=== PATIENT | female | born 1995 | race Caucasian/White ===

== ENCOUNTER 2018-06-26 12:31 | Emergency (ER) | payer OTHER, SELFPAY ==
--- NOTE | 2018-06-26 12:33 | W.ED.GENAD ---
Discharge Plan Disposition Patient Disposition: HOME Condition: Stable Discharge Details Chief Complaint: Laceration Clinical Impression: Laceration of right index finger ED Provider: Daniel Fry Discharge Instructions Instructions: Finger Laceration (ED) Additional Instructions: return in 7 days to have the wound reevaluated and determine if the sutures can come out if redness spreads up the finger or you have yellow/white discharge from the wound return to the emergency department for reevaluation Medical Decision Making Pt was at work when she slipped using a slicer causing a lateral 3cm incision to the distal finger. Has full rom of the finger with intact sensation. No findings to suggest tendon or nerve injury. Will irrigate and close with sutures. Denies hitting her head or other injuries wound closed with 4 sutures and skin adhesive. Will d/c home, return precautions to come before suture removal given Differential Diagnosis laceration, abrasion HPI General Mode of arrival: ambulatory. Date/Time Provider Initiated Documentation: 06/26/18 12:33. Limitations to Documentation: no limitations. Information obtained by: patient. History of Present Illness 22 year old F presents to the emergency department with the chief complaint of right index finger laceration, described as moderate, Quality is described as aching, and is localized to the right and upper extremity. Patient reports no radiation. and it has been constant. No relieving factors improve symptom(s), No exacerbating factors reported . Patient notes no other symptoms.. Patient did receive the following treatments prior to arrival, none Related Data Allergies Allergy/AdvReac Type Severity Reaction Status Date / Time No Known Allergies Allergy Unverified 06/26/18 12:39 Review of Systems Review of Systems All systems reviewed & are unremarkable except as noted in HPI and below Constitutional Denies weakness Cardiovascular Denies chest pain and Denies dyspnea Respiratory Denies dyspnea Gastrointestinal Denies abdominal pain, Denies nausea and Denies vomiting Neurologic Denies weakness [facility] Social History Do you feel safe at home: Yes Do you feel safe in your relationship?: Yes Exam Const General: no acute distress Orientation: alert HENMT Head: normal to inspection Ears: external ears normal General nose exam: external nose normal Mouth: moist mucous membranes Eyes General: appearance normal, both eyes and all related structures Neck Neck: normal visual inspection Resp Effort & Inspection: normal respiratory effort and able to speak in complete sentences Cardio Rate: regular rate Skin General skin exam: no rashes or lesions noted Neuro General: alert and oriented x3 Extrem General: normal capillary refill Psych Mental Status: mental status grossly normal Procedures Laceration Laceration 1: Site: hand Side (If applicable): right Size (cm): 3 Description: linear Depth: simple, single layer Local Anesthetic: Lidocaine 1% Amount of anesthesia used (mL): 6 Pre-repair: wound explored and irrigated extensively Skin layer closed with: nylon and other (also skin adhesive) Size (cm): 5-0 Number of sutures: 4 Technique: simple, interrupted
[2018-06-26 12:35] VITALS: BP 146/91; PULSE 91; RESP 18; O2SAT 96
--- NOTE | 2018-06-26 12:44 | ED.GENADUL_ITS ---
Discharge Plan Disposition Patient Disposition: HOME Condition: Stable Discharge Details Chief Complaint: Laceration Clinical Impression: Laceration of right index finger ED Provider: Daniel Fry Discharge Instructions Instructions: Finger Laceration (ED) Additional Instructions: return in 7 days to have the wound reevaluated and determine if the sutures can come out if redness spreads up the finger or you have yellow/white discharge from the wound return to the emergency department for reevaluation Medical Decision Making Pt was at work when she slipped using a slicer causing a lateral 3cm incision to the distal finger. Has full rom of the finger with intact sensation. No findings to suggest tendon or nerve injury. Will irrigate and close with sutures. Denies hitting her head or other injuries wound closed with 4 sutures and skin adhesive. Will d/c home, return precautions to come before suture removal given Differential Diagnosis laceration, abrasion HPI General Mode of arrival: ambulatory . Date/Time Provider Initiated Documentation: 06/26/18 12:33 . Limitations to Documentation: no limitations . Information obtained by: patient . History of Present Illness 22 year old F presents to the emergency department with the chief complaint of right index finger laceration, described as moderate, Quality is described as aching, and is localized to the right and upper extremity. Patient reports no radiation. and it has been constant. No relieving factors improve symptom(s), No exacerbating factors reported . Patient notes no other sympto ms.. Patient did receive the following treatments prior to arrival, none Related Data Allergies Allergy/AdvReac Type Severity Reaction Status Date / Time No Known Allergies Allergy Unverified 06/26/18 12:39 Review of Systems Review of Systems All systems reviewed & are unremarkable except as noted in HPI and below Constitutional Denies weakness Cardiovascular Denies chest pain and Denies dyspnea Respiratory Denies dyspnea Gastrointestinal Denies abdominal pain, Denies nausea and Denies vomiting Neurologic Denies weakness [facility] Social History Do you feel safe at home: Yes Do you feel safe in your relationship?: Yes Exam Const General: no acute distress Orientation: alert HENMT Head: normal to inspection Ears: external ears normal General nose exam: external nose normal Mouth: moist mucous membranes Eyes General: appearance normal, both eyes and all related structures Neck Neck: normal visual inspection Resp Effort & Inspection: normal respiratory effort and able to speak in complete sentences Cardio Rate: regular rate Skin General skin exam: no rashes or lesions noted Neuro General: alert and oriented x3 Extrem General: normal capillary refill Psych Mental Status: mental status grossly normal Procedures Laceration Laceration 1: Site: hand Side (If applicable): right Size (cm): 3 Description: linear Depth: simple, single layer Local Anesthetic: Lidocaine 1% Amount of anesthesia used (mL): 6 Pre-repair: wound explored and irrigated extensively Skin layer closed with: nylon and other (also skin adhesive) Size (cm): 5-0 Number of sutures: 4 Technique: simple, interrupted
--- NOTE | 2018-06-26 13:17 | NUR.NOTE ---
approximated finger wound, area dressed with telfa under gauze dressing. Nursing Note:
== END 2018-06-26 13:15 | disposition home or self-care (01) ==
LOC: ER 13:27
PROVIDERS: Emergency Provider Emergency Medicine
DX: S61.210A Laceration without foreign body of right index finger without damage to nail, initial encounter (principal); W31.82XA Contact with other commercial machinery, initial encounter; Y99.0 Civilian activity done for income or pay
CPT/HCPCS: 12002

== ENCOUNTER 2018-07-03 15:55 | Emergency (ER) | payer SELFPAY ==
--- NOTE | 2018-07-03 16:06 | ED.GENADUL_ITS ---
Discharge Plan Discharge Details Primary Care Provider: Unknown,Unknown ED Provider: Charo Vasquez HPI General Date/Time Provider Initiated Documentation: 07/03/18 15:56 . Related Data Allergies Allergy/AdvReac Type Severity Reaction Status Date / Time No Known Allergies Allergy Unverified 06/26/18 12:39 General JU: 3 Review of Systems Review of Systems All systems reviewed & are unremarkable except as noted in HPI and below Constitutional Reports as per HPI, Denies chills and Denies fever(s) Eyes Denies blurry vision ENT Denies dizziness, Denies sore throat and Denies throat swelling Cardiovascular Denies chest pain and Denies dyspnea Respiratory Denies cough and Denies dyspnea Gastrointestinal Denies abdominal pain, Denies diarrhea and Denies vomiting Genitourinary Denies hematuria and Denies dysuria Musculoskeletal Denies back pain and Denies numbness Integumentary/Breasts Denies lesions and Denies rash Neurologic Denies dizziness, Denies focal weakness and Denies numbness Allergic/Immunologic Denies throat swelling PFSH Social History Do you feel safe at home: Yes Do you feel safe in your relationship?: Yes
[2018-07-03 16:08] VITALS: BP 102/67; PULSE 78; RESP 18; TEMP 36.1; O2SAT 99
--- NOTE | 2018-07-03 16:17 | W.ED.GENAD ---
Discharge Plan Disposition Patient Disposition: HOME Condition: Good Discharge Details Chief Complaint: SutureRem Clinical Impression: Visit for suture removal Primary Care Provider: Unknown,Unknown ED Provider: Tank Chavarria Discharge Instructions Additional Instructions: Please keep the splint on as directed. Please continue to wash your finger gently in warm soapy water multiple times throughout the day. If you notice any redness, change in her skin, significant drainage, worsening pain, or the presence of a fever please return immediately for reassessment. Please follow-up with your primary care provider as soon as possible for reassessment. Medical Decision Making This is a 22-year-old female who presents for removal of 4 simple interrupted sutures in her right dominant hand on the index finger. Sutures were placed greater than 1 week ago. All 4 sutures were removed without any signs of dehiscence or infection. No concerning red flags of flexor or extensor tenosynovitis, no evidence of abscess. No purulent drainage. No concerning red flags of redness fever or chills. Patient will be placed in a splint to prevent any significant flexion since the previous laceration site is on the DIP joint. We discussed red flags which to return and the importance of close follow-up and the patient understands. I have extensively reviewed the treatment plan and discharge instructions with the patient. I have addressed all patient concerns at this time. The patient was made aware of what symptoms to monitor for that would warrant a return to the emergency department. Discussed the plan with the patient, they demonstrate verbal understanding and agreement with our assessment and plan at this time. HPI General Date/Time Provider Initiated Documentation: 07/03/18 15:56. HPI Narrative: This is a 22-year-old with no significant past medical history who presents for evaluation of suture removal. The patient states that roughly 1 week ago she cut her right index finger on her dominant hand. She came in, had a clean irrigated and sutured with 4 simple interrupted sutures. She tolerated this well. She presents today for removal. Patient denies any redness, fever, or drainage. She states that the pain is minimal at best, she denies any concerning red flags. She has no other complaints at this time. No other modifying factors. Related Data Allergies Allergy/AdvReac Type Severity Reaction Status Date / Time No Known Allergies Allergy Unverified 06/26/18 12:39 General Stated Complaint: SutureRem JU: 5 Review of Systems Review of Systems All systems reviewed & are unremarkable except as noted in HPI and below [facility] Social History Smoking/Tobacco Use Status: Never Alcohol Intake: current Substance use type: does not use Do you feel safe at home: Yes Do you feel safe in your relationship?: Yes Exam Narrative Exam Narrative: 1.Const: Well-nourished, Well-developed, appearing stated age 2.Eyes: PERRL, no conjunctival injection, and symmetrical lids. 3.ENT: Atraumatic external nose and ears. Moist MM. Neck: Symmetric, trachea midline, No thyromegaly. 4.CVS: +S1/S2, No murmurs or gallops. Peripheral pulses 2+ and equal in all extremities. Brisk capillary refill in all extremities. 5.RESP: Unlabored respiratory effort. Clear to auscultation bilaterally. No wheezes rales or rhonchi 6.GI: Soft, Nontender/Nondistended, No hepatosplenomegaly. No guarding or rebound. 7.MSK: Normocephalic/Atraumatic, Extremities w/o deformity or ttp No cyanosis or clubbing, Normal movement of all extremities 8.Skin: Warm, Dry. Patient's right index finger demonstrates 4 simple interrupted sutures. No evidence of active discharge or bleeding. Finger is able to move well without difficulty both actively and passively. No concerning symptoms of flexor or extensor tenosynovitis. No signs of significant skin breakdown. No evidence of wound dehiscence. There is some residual Dermabond left. No signs of significant infection or other abnormalities. Patient demonstrates excellent flexion extension of the finger at the PIP joint DIP joint, and interphalangeal joint. Good two-point discrimination distal to the site of injury. 9.Neuro: accounting recruiter II-XII grossly intact. Sensation grossly intact, no focal neurologic deficits. 10.Psych: (AAO) x3. Appropriate mood and affect Course Vital Signs Temperature 36.1 C L 07/03/18 16:08 Pulse 78 07/03/18 16:08 Respiratory Rate 18 07/03/18 16:08 Blood Pressure 102/67 07/03/18 16:08 Pulse Oximetry 99 07/03/18 16:08 Temperature 36.1 C L 07/03/18 16:08 Temperature Source Skin 03/29/19 16:08 Pulse 78 07/03/18 16:08 Respiratory Rate 18 07/03/18 16:08 Respiratory Effort 07/03/18 16:08 Blood Pressure 102/67 07/03/18 16:08 Pulse Oximetry 99 07/03/18 16:08 Oxygen Delivery Method Room Air 07/03/18 16:08 Oxygen Flow Rate 0 07/03/18 16:08
== END 2018-07-03 16:29 | disposition home or self-care (01) ==
LOC: ER 16:38
PROVIDERS: Emergency Provider Student in an Organized Health Care Education/Training Program; PCP Nurse Practitioner Adult Health
DX: S61.210D Laceration without foreign body of right index finger without damage to nail, subsequent encounter (principal); X58.XXXD Exposure to other specified factors, subsequent encounter; Z48.02 Encounter for removal of sutures

== ENCOUNTER 2023-09-15 06:05 | Outpatient (CLI) | payer OTHER, SELFPAY ==
[2023-09-15 15:26] LABS: Panorama Kit Sent via Fed Ex
[2023-09-15 15:31] LABS: Abs Immature Grans 0.11 10^3/uL (0.0-0.06); Absolute Basophil Count 0.07 10^3/uL (0.0-0.2); Absolute Eosinophil Count 0.22 10^3/uL (0.0-0.7); Absolute Lymphocyte Count 1.78 10^3/uL (1.2-3.4); Basophils % 0.3 %; HCT 39.5 % (36.0-46.0); HGB 13.4 g/dL (11.2-15.7); Immature Grans % 0.5 %; MCH 29.3 pg (27.0-33.0); MCHC 33.9 % (32.0-36.0); MCV 86 fL (80-95); MPV 9.1 fL (8.0-11.0); Monocytes % 4.5 %; Neutrophils % 85.7 %; Platelet Count 320 10^3/uL (130-400); RBC 4.57 10^6/uL (3.93-5.22); RDW-SD 40.7 fL; WBC 22.29 10^3/uL (4.4-10.8)
[2023-09-15 16:43] LABS: TSH (W/Ref FT4) 2.11 uIU/mL (0.36-3.74)
[2023-09-15 22:29] LABS: Hepatitis B Surface Ag Negative (Negative)
[2023-09-15 23:00] LABS: HIV-1/2 Ag & Ab Screen Negative (Negative)
[2023-09-15 23:01] LABS: Hepatitis C Ab w Rflx HCV PCR Negative (Negative)
[2023-09-16 11:32] LABS: Varicella IgG Antibody Negative (See Note)
[2023-09-16 11:37] LABS: Rubella IgG Ab (UVM) Negative (See Note)
[2023-09-17 13:00] LABS: Syphilis IgG w/Reflex Nonreactive (Nonreactive)
[2023-09-22 17:19] LABS: Specimen WB Whole Blood
[2023-09-25 16:51] LABS: Result Summary NEGATIVE; Specimen WB Whole Blood
== END 2023-09-15 06:06 | disposition home or self-care (01) ==
LOC: LBO 06:06
PROVIDERS: PCP Nurse Practitioner Adult Health; Visit Provider Advanced Practice Midwife
DX: Z34.91 Encounter for supervision of normal pregnancy, unspecified, first trimester (principal); Z3A.11 11 weeks gestation of pregnancy
CPT/HCPCS: 36415; 81220; 81222; 81329; 86787; 86803; 86850; 86900; 86901; 87340; 87389; 84443; 85025; 86762; 86780

== ENCOUNTER 2023-09-15 15:47 | Outpatient (REF) | payer OTHER, SELFPAY ==
[2023-09-17 15:02] LABS: Chlamydia Result Negative (Negative); GC Result Negative (Negative)
== END 2023-09-15 15:48 | disposition home or self-care (01) ==
LOC: LBN 15:47
PROVIDERS: PCP Nurse Practitioner Adult Health; Visit Provider Advanced Practice Midwife
DX: Z34.91 Encounter for supervision of normal pregnancy, unspecified, first trimester (principal); Z3A.11 11 weeks gestation of pregnancy
CPT/HCPCS: 87491; 87591; 87086

== ENCOUNTER 2024-01-09 01:42 | Outpatient (CLI) | payer OTHER, SELFPAY ==
--- OUTSIDE RECORDS SUMMARY | 2024-01-09 01:47 | XMS_ITS | Encounter Summary ---
[facility] [place] [address] Care Team Providers Care Land Agent Name Role Phone Poppy Wright APRN Primary Care Provider [phone] Encounter Details Date Type Department Care Team (Late st Contact Info) Description 03/06/2022 Telephone [facility] [place] [address] Umm Erazo RN Social History Tobacco Use Types Packs/Day Years Used Date Smoking Tobacco: Never Smokeless Tobacco: Never Sex and Gender Information Value Date Recorded Sex Assigned at Not on file Gender Identity Not on file Sexual Orientation Not on file documented as of this encounter Miscellaneous Notes * Telephone Encounter - Umm Erazo RN - 03/06/2022 9:05 AM EST Contact made with patient or retail representative as identified in contacts 1. Patient instructed to arrive at 0730 on 03/07/22 with their party bus driver for their 0730 procedure. Please plan to spend about 2 hours at the center. (3 hours for RFA) 2. Psychological Science Professor required: yes 3. Has pt started any new medications or supplements in the past two weeks? No 4. Have any of the following occurred within the two weeks before the procedure date? a. Patient is having a Covid vaccine or other vaccine No b. Patient has been exposed to anybody with a contagious illness such as Covid, flu, No c. Patient is taking antibiotics to treat an infection No d. Patient has any skin rashes, breakdown, blisters or open wounds No e. Patient has had any hospitalizations, ED visits, surgery, other procedure, dental procedure No f. Patient has taken oral steroids or had a steroid injection No g. Does patient have any of the following symptoms that are NEW and NOT explained by another healthcondition: fever or chills, cough, shortness of breath or difficulty breathing, fatigue, muscle or body aches, headache, new loss of taste or smell, sore throat, congestion or runny nose, nausea or vo miting, diarrhea. No If yes, the patient has been directed to the Tip or Skip hotline for testing prior to their procedure. (route telephone note to: [facility] covid 19 nurse triage with routing comment stating pt needs covid test prior to procedure and give date of procedure, add name and MRN to tracking tool). h. Has the patient's pain resolved or significantly improved such as a rating of 3/10 or less? No 5. Was patient instructed to stop any medications? Yes if yes: a. Name of medication(s): IBU - 1 day hold b. Confirm date of last dose: 03/05/22 6. Is patient having a nerve block: No a. If yes instructed to not take any pain medication for 12 hours before your procedure. 7. Patient instructed to take any prescribed medications that they were not told to stop, especially blood pressure medication, because their procedure may be cancelled if their blood pressure is toohigh. 8. Was patient instructed to follow NPO guidelines: Yes if yes, the following instructions were reviewed: a. You may eat up to 6 hours before your procedure b. You may have clear liquids only up to 2 hours before your procedure: water, apple juice, angelina rigoberto, sprite, popsicles, broth, tea or coffee plain or with sweetener, absolutely no dairy products, no milk including soy, oat, almond. 9. IF RFA: Does patient have a pacemaker? No a. If yes, document that cardiology was called and notified. 10. Additional notes if applicable: Notified pt/retail representative to contact clinic if anything changes OR they have any questions or concerns later on. Pt/retail representative verbalizes intent to do this. Patient expressed understanding and agreement with instructions Yes Patient denies further questions Yes documented in this encounter Plan of Treatment Upcoming Encounters Date Type Department Care Team (Late st Contact Info) Description 02/12/2024 4:45 PM EST TH Visit (TeleHealth) Dermatology at [facility] [address] [place] [address] Marian Vieyra MD [facility] [address] [facility] [address] documented as of this encounter Visit Diagnoses Not on filedocumented in this encounter Care Teams Land Agent Relationship Specialty Start Date End Date Poppy Wright APRN [address] [place] [id number] PCP - General General Internal Medicine 05/24/19 documented as of this encounter
--- OUTSIDE RECORDS SUMMARY | 2024-01-09 01:47 | XMS_ITS | Encounter Summary ---
Author Organization [facility] Address [facility] [place] [address] Care Team Providers Care E Commerce Merchant Name Role Phone Poppy Wright APRN Primary Care Provider [phone] Encounter Details Date Type Department Care Team (Latest Contact Info) Description 11/10/2023 Travel Social History Tobacco Use Types Packs/Day Years Used Date Smoking Tobacco: Never Smokeless Tobacco: Never Estimated Date of Delivery Comme nts Yes 04/05/2024 Sex and Gender Information Value Date Recorded Sex Assigned at Not on file Gender Identity Not on file Sexual Orientation Not on file documented as of this encounter Plan of Treatment Upcoming Encounters Date Type Department Care Team (Late st Contact Info) Description 02/12/2024 4:45 PM EST TH Visit (TeleHealth) Dermatology at [facility] [address] [place] [address] Marian Vieyra MD [facility] [address] [address] documented as of this encounter Visit Diagnoses Not on filedocumented in this encounter Care Teams E Commerce Merchant Relationship Specialty Start Date End Date Poppy Wright APRN [address] [place] [address] PCP - General General Internal Medicine 05/24/19 documented as of this encounter
--- OUTSIDE RECORDS SUMMARY | 2024-01-09 01:47 | XMS_ITS | Encounter Summary ---
Author Organization [facility] [place] [address] Care Team Providers Care Bronze Plater Name Role Phone Poppy Wright APRN Primary Care Provider [phone] Encounter Details Date Type Department Care Team (Late st Contact Info) Description 12/16/2023 8:20 AM EDT Office Visit Dermatology at [facility] [address] [place] [address] Car Garcia MD [facility] [address] [facility] [facility] [address] Acne vulgaris Social History Tobacco Use Types Packs/Day Years Used Date Smoking Tobacco: Never Smokeless Tobacco: Never Estimated Date of Delivery Comme nts Yes 04/05/2024 Sex and Gender Information Value Date Recorded Sex Assigned at Not on file Gender Identity Not on file Sexual Orientation Not on file documented as of this encounter Progress Notes * Debby Driver, ALUMINA PLANT SUPERVISOR - 12/16/2023 8:20 AM EDT Images from the original note were not included. DEPARTMENT OF DERMATOLOGY Medical Dermatology Clinic Provider: CAR GARCIA MD Patient's preferred name Parisa Preferred contact method for results [x]Phone []myD-H []Letter Detailed phone message OK? Yes Are there any other people with whom we may discuss your care? , [place] Past Medical History Date, location, treatment Melanoma N Dysplastic nevi N SCC N BCC N AKs N UV Exposure & Protection Other relevant past medical history N Family History Details Melanoma N NMSC n Other relevant family history N Social History Occupation: Hobbies: Other: PRE-PROCEDURE SCREENING Details Allergy to lidocaine, epinephrine, Dermabond, chlorhexidine, or adhesives Bleeding disorder or blood thinners Pacemaker, defibrillator, deep brain stimulator, cochlear implant History of Present Illness: Parisa Acosta is a 28 y.o. Patient is new and [facility]. Currently . Thinks stopping her control has caused her flare. Currently washing with Neutrogena SA wash in the shower once daily. She has tried a few different OTC washes with no improvement. Medications: Reviewed in eD-H Allergies: Reviewed in eD-H Skin Examination: Focused skin examination of the face was normal with the exception of the findings below. Assessment/Plan #. Acne Vulgaris - mild inflammatory papules on the lower face. - Noted limited treatment options while . - Recommended washing with a mild cleanser (Cetaphil, CeraVe) - follow by Rx Erythromycin (EMGEL) 2% Gel apply topically to affected areas on face twice daily. - Noted that it takes at least 4-6 weeks before results can be seen. Other: N/A RTC: 2 months for Acne follow up via , sooner if needed. [x]Note routed to pollution control chemist []Recall placed in scheduling system []Appointment scheduled at checkout Scribe attestation: Kiara Walden LPN has performed the documentation for this encounter in the presence of and acting as a scribe for CAR GARCIA MD. I performed the above scribed service and agree with the accuracy of the documentation in this encounter. Reviewed and signed by: CAR GARCIA MD Dermatology [facility] documented in this encounter Plan of Treatment Upcoming Encounters Date Type Department Care Team (Late st Contact Info) Description 02/12/2024 4:45 PM EST Visit (TeleHealth) Dermatology at [facility] [address] [place] [address] Car Garcia MD [facility] DR [facility] [address] documented as of this encounter Visit Diagnoses Diagnosis Acne vulgaris Other acne documented in this encounter Care Teams Bronze Plater Relationship Specialty Start Date End Date Poppy Wright APRN [address] [place] [id number] PCP - General General Internal Medicine 05/24/19 documented as of this encounter
--- OUTSIDE RECORDS SUMMARY | 2024-01-09 01:47 | XMS_ITS | Encounter Summary ---
Author Organization [facility] Address [facility] [address] Care Team Providers Care Public Health Technician Name Role Phone Poppy Wright APRN Primary Care Provider [phone] Reason for Visit * Reason Comments Follow-up Encounter Details Date Type Department Care Team (Late st Contact Info) Description 05/15/2020 8:00 AM EST Office Visit [place] [phone] Carlo Fernandes MD [facility] [address] [place] [address] Low back pain, non-specific; Lumbar spondylosis Social History Tobacco Use Types Packs/Day Years Used Date Smoking Tobacco: Never Smokeless Tobacco: Never Sex and Gender Information Value Date Recorded Sex Assigned at Not on file Gender Identity Not on file Sexual Orientation Not on file documented as of this encounter Last Filed Vital Signs Vital Sign Reading Time Taken Comments Blood Pressure 129/70 05/15/2020 7:54 AM EST Pulse 84 05/15/2020 7:54 AM EST Temperature 36.9 ??C (98.5 ??F) 05/15/2020 7:54 AM ES T Respiratory Rate - - Oxygen Saturation - - Inhaled Oxygen Concentration - - Weight - - Height - - Body Mass Index - - documented in this encounter Progress Notes * Carlo Fernandes MD - 05/15/2020 8:00 AM EST CC: Follow-up Interim history: The patient returns for follow-up, status post bilateral L3, L4 and L5-DR radiofrequency ablation on 03/30/2020. The patient has been feeling much better since this procedure and notes minimal symptoms of low level tightness in the left paracentral low lumbosacral region. She has had no recent hip pain. There is no pain at present. The patient denies lower extremity pain radiation, numbness, tingling or focal lower extremity weakness. She reports no pain during functional activities. No past medical history on file. Current Outpatient Medications on File Prior to Visit Medication Sig Dispense Refill ??? cetirizine (ZyrTEC) 10 mg Tablet 1 tablet as needed. ??? Tri-Sprintec, 28, 0.18/0.215/0.25 mg-35 mcg (28) Tablet TAKE 1 TABLET BY MOUTH ONCE DAILY DIRECTED ??? acetaminophen (Tylenol) 325 mg Tablet Take 650 mg by mouth every 6 hours as needed for Pain. ??? ibuprofen (Advil;Motrin) 200 mg Tablet Take 800 mg by mouth as needed for Pain. ??? cholecalciferol, Vitamin D3, 50 mcg (2,000 unit) Tablet Take by mouth. No current facility-administered medications on file prior to visit. Allergies Allergen Reactions ??? Coffee Hives ??? Raspberry (Rubus Idaeus) Causes immediate stomach pain ??? Cat Dander Other (See Comments) congestion Review of Systems: As above. Objective: BP 129/70 Pulse 84 Temp 36.9 ??C (98.5 ??F) Well-developed and well-nourished female in no apparent distress. Alert and oriented x3. Affect is appropriate. Shabana's signs are absent. Gait: Normal. There is no difficulty performing bilateral heel or toe walking. Patient reports minimal central lumbosacral discomfort at end range lumbar extension. There is no pain with lumbar flexion. Pelvic alignment/motion: Pelvis is anteriorly rotated. Standing iliac crest palpation is level. Standing flexion test is negative bilaterally. Palpation: No tenderness is appreciated in lumbar or lumbopelvic regions. Motor: 5/5 throughout the lower extremities. Sensation: Intact to light touch throughout the lower extremities. Straight leg raising: Negative bilaterally. Muscle stretch reflexes: 2+ bilaterally for quadriceps and Achilles tendon. Assessment: Encounter Diagnoses Name Primary? Low back pain, non-specific ??? Lumbar spondylosis The patient has had an excellent response to radiofrequency ablation. Pain has resolved and she notes only mild low back stiffness. The procedure has helped to identify the lumbar facet joints as theprimary pain generators. Symptoms are currently under excellent control. The patient and I discussed the timing and rationale of possible repeat RFA in the future. The patient understands that, should symptoms recur prior to the 1 year pillo, we will need to complete diagnostic medial branch blocks. Plan: 1. Follow-up here on an as-needed basis. Total time spent on date of encounter = 20 minutes. Carlo Fernandes MD, MS 05/15/2020 documented in this encounter Plan of Treatment Upcoming Encounters Date Type Department Care Team (Late st Contact Info) Description 02/12/2024 4:45 PM EST TH Visit (TeleHealth) Dermatology at [address] [address] Marian Vieyra MD [facility] [address] [place] [address] documented as of this encounter Visit Diagnoses Diagnosis Low back pain, non-specific Lumbar spondylosis Lumbosacral spondylosis without myelopathy documented in this encounter Care Teams Public Health Technician Relationship Specialty Start Date End Date Poppy Wright APRN [address] [place] [id number] PCP - General General Internal Medicine 05/24/19 documented as of this encounter
--- OUTSIDE RECORDS SUMMARY | 2024-01-09 01:47 | XMS_ITS | Encounter Summary ---
Author Organization [facility] [place] [address] Care Team Providers Care Automotive Artist Name Role Phone AndraeheribertoPoppy baxter HUBER Primary Care Provider Reason for Visit * Auth/Cert Specialty Diagnoses / Procedures Referred By Kalin garcia Referred To Contact Diagnoses Spondylosis of lumbar region without myelopathy or radiculopathy lumbar spondylosis without myelopathy Procedures PRO DSTR PARAVERTEBRAL FCT JNT NRVES LUMBAR OR SACRAL ADDL PRO DSTR PARAVERTEBRAL FCT JNT NRVES LUMBAR OR SACRAL SINGLE DESTRUCT BY LYTIC AGENT, FACET JNT NERVE(S), LUMBAR OR SACRAL, EA ADD (WRVU 1.16) DESTRUCTI BY LYTIC AGENT, FACET JOINT NERVE(S); LUMBAR OR SACRAL, SNGL (WRVU 3.78) Radha Garg MD [facility] [place] [address] [facility] Referral ID Status Reason Start Date Expiration Date Visits Re quested Visits Authorized [id number] 1 1 Encounter Details Date Type Department Care Team (Late st Contact Info) Description 03/07/2022 8:00 AM EST Ancillary [place] [address] Radha Garg MD [facility] [place] [address] Social History Tobacco Use Types Packs/Day Years [...] PM EST TH Visit (TeleHealth) Dermatology at [facility] [address] [place] [address] Marian Vieyra MD [facility] DR LAKSHMI [place] [address] documented as of this encounter Procedures Procedure Name Priority Date/Time Associated Diagnosis Comments FILM LIBRARY STORAGE ONLY PAIN CLINIC C ARM Routine 03/07/2022 12:01 PM EST documented in this encounter Results * Film Library- Storage Only pain Clinic C-Arm (03/07/2022 12:01 PM EST) Narrative [facility] 03/07/2022 12:01 PM EST See PACS for result report. Radha Garg MD IMG FILM LIBRARY ORD ERABLES [place], [place] documented in this encounter Visit Diagnoses Not on filedocumented in this encounter Care Teams Automotive Artist Relationship Specialty Start Date End Date Poppy Wright APRN [address] [place] [address] PCP - General General Internal Medicine 05/24/19 documented as of this encounter
--- OUTSIDE RECORDS SUMMARY | 2024-01-09 01:47 | XMS_ITS | Encounter Summary ---
Author Organization [facility] Address [facility] [place] [address] Care Team Providers Care Sas Administrator Name Role Phone Poppy Wright APRN Primary Care Provider [phone] Encounter Details Date Type Department Care Team (Late st Contact Info) Description 12/17/2023 Telephone Dermatology at [address] [place] [address] Marian Vieyra MD [facility] DR LAKSH[address] [place] [address] Social History Tobacco Use Types Packs/Day Years Used Date Smoking Tobacco: Never Smokeless Tobacco: Never Estimated Date of Delivery Comme nts Yes 04/05/2024 Sex and Gender Information Value Date Recorded Sex Assigned at Not on file Gender Identity Not on file Sexual Orientation Not on file documented as of this encounter Miscellaneous Notes * Telephone Encounter - Desire Amador - 12/18/2023 1:08 PM EDT Patient has been scheduled. * Telephone Encounter - Desire Amador - 12/17/2023 11:10 AM EDT LM #1 to schedule a 2 month TH follow up with Dr. Vieyra. 2 MONTH ACNE FOLLOW UP documented in this encounter Plan of Treatment Upcoming Encounters Date Type Department Care Team (Late st Contact Info) Description 02/12/2024 4:45 PM EST TH Visit (TeleHealth) Dermatology at [facility] [address] [place] [address] Marian Vieyra MD [facility] DR LAKSH[address] [place] [address] documented as of this encounter Visit Diagnoses Not on filedocumented in this encounter Care Teams Sas Administrator Relationship Specialty Start Date End Date Poppy Wright APRN [address] [place] [id number] PCP - General General Internal Medicine 05/24/19 documented as of this encounter
--- OUTSIDE RECORDS SUMMARY | 2024-01-09 01:47 | XMS_ITS | Encounter Summary ---
Author Organization Formerly [facility] [place] [address] Care Team Providers Care Detailer School Photographs Name Role Phone Poppy Wright APRN Primary Care Provider [phone] Encounter Details Date Type Department Care Team (Late st Contact Info) Description 11/09/2023 Orders Only Obstetrics and Gynecology at [address] [address] Rachel Donnelly MD [facility] DR OBSTETRICS [place] [address] Social History Tobacco Use Types Packs/Day Years [...] PM EST TH Visit (TeleHealth) Dermatology at [facility] [address] [place] [address] Marian Vieyra MD [facility] [address] [place] [address] documented as of this encounter Visit Diagnoses Not on filedocumented in this encounter Care Teams Detailer School Photographs Relationship Specialty Start Date End Date Poppy Wright APRN [address] [place] [address] PCP - General General Internal Medicine 05/24/19 documented as of this encounter
--- OUTSIDE RECORDS SUMMARY | 2024-01-09 01:47 | XMS_ITS | Encounter Summary ---
[place] [address] Care Team Providers Care Paper Mill Manager Name Role Phone Poppy Wright HUBER Primary Care Provider [phone] Reason for Referral * Diagnostic Test (Routine) - Closed Specialty Diagnoses / Procedures Referred By Contac t Referred To Contact Radiology Diagnoses Family history of congenital anomalies Procedures US OB Detailed Morphology Jose Chahal CNM [address] [place] [address] [address] [place] [address] [place] [address] Referral ID Status Reason Start Date Expiration Date V isits Requested Visits Authorized [id number] Closed Specialty Service Requested 10/13/2023 04/14/2025 1 1 Reason for Visit * Diagnostic Test (Routine) - Closed Specialty Diagnoses / Procedures Referred By Contac t Referred To Contact Radiology Diagnoses Family history of congenital anomalies Procedures US OB Detailed Morphology Jose Chahal CNM [address] [place] [address] [address] [place] [address] [facility] [place] [address] Referral ID Status Reason Start Date Expiration Date V isits Requested Visits Authorized [id number] Closed Specialty Service Requested 10/13/2023 04/14/2025 1 1 Encounter Details Date Type Department Care Team (Latest Contact Info) Description 11/10/2023 7:38 AM EDT - 11/10/2023 11:59 PM EDT Hospital [place] [address] Jose Chahal, [facility] [address] [place] [address] [address] [place] [address] Family history of congenital anomalies Discharge Disposition: Home Social History Tobacco Use Types Packs/Day Years Used Date Smoking Tobacco: Never Smokeless Tobacco: Never Estimated Date of Delivery Comme nts Yes 04/05/2024 Sex and Gender Information Value Date Recorded Sex Assigned at Not on file Gender Identity Not on file Sexual Orientation Not on file documented as of this encounter Medications at Time of Discharge Medication Sig Dispensed Refills Start Date End Date no115/iron/folic acid ( 19 ORAL) daily. cetirizine (ZyrTEC) 10 mg Tablet 1 tablet as needed. 10/24/2016 documented as of this encounter Plan of Treatment Upcoming Encounters Date Type Department Care Team (Late st Contact Info) Description 02/12/2024 4:45 PM EST TH Visit (TeleHealth) Dermatology at [address] [address] Marian Vieyra MD [facility] DR [address] [address] documented as of this encounter Procedures Procedure Name Priority Date/Time Associated Diagnosis Comments US OB DETAILED MORPHOLOGY Routine 11/10/2023 8:29 AM EDT Family history of congenital anomalies documented in this encounter Results * US OB Detailed Morphology (11/10/2023 8:29 AM EDT) WORKSTATION ID [id number] 1 [facility] Anatomical Region Laterality Modality Pelvis, Abdomen Ultrasound 11/10/2023 8:14 AM EDT Impressions 11/10/2023 8:18 AM EDT 2nd Trimester - Detailed Morphology - Summary Single intrauterine with a gestational age of 19w 0d based on Early Ultrasound ??(09/08/23) Composite age based on the current ultrasound alone is 19w 0d. Current growth parameters are consistent with prior dating indicating normal growth. Amniotic fluid volume is Normal Detailed anatomic evaluation was performed and no structural abnormalities are noted. Thank you for letting us participate in the care of this patient. If you are a health care provider and have any questions regarding this report, please contact the number above. For patients who have questions, please contact the health medicare coordinator that requested your imaging first. ? Rachel Donnelly, Staff Physician Electronically Signed Final Report ?? 11/10/2023 08:18 am Narrative 11/10/2023 8:18 AM EDT OBSTETRICS REPORT ?(Signed Final 11/10/2023 08:18 am) PATIENT INFO: ID #: ? [id number] ?: ??[birth year] (28 yrs)(F) Name: ? PARISA Rueda ? Visit Date: 11/10/2023 08:14 am ? [facility] PERFORMED BY: Performed By: ? Jenny Gongora RDMS Attending: ?Rachel Donnelly MD Referred By: ?JOSE CHAHAL Location: ? [place] SERVICE(S) PROVIDED: [facility] - Detailed Morphology - [id number] ? [id number] INDICATIONS: 19 weeks gestation of ?Z3A.19 Pt's mother has cardiac septal defect VITAL SIGNS: Weight (lb): 179.0 Height: ?5'6 ? BMI: ? 28.89 EVALUATION: Num Of Fetuses: ? 1 Heart Rate(bpm): ??150 Cardiac Activity: ? Observed, normal rhythm Presentation: ? Cephalic Placenta: ? Anterior P. Cord Insertion: ?Within Normal Limits Amniotic Fluid JACKI FV: ?Normal --------- BIOMETRY: --------- BPD: ?43.8 ??mm ? G.Age: ?? 19w 2d OFD: ?58.1 ??mm HC: ?163.4 ??mm ? G.Age: ?? 19w 1d AC: ?132.5 ??mm ? G.Age: ?? 18w 5d FL: ? 28.9 ??mm ? G.Age: ?? 18w 6d HUM: ?27.9 ??mm ? G.Age: ?? 19w 0d CER: ?19.5 ??mm ? G.Age: ?? 18w 5d NFT: ?3.63 ??mm NB: ?4.9 ??mm LV: ?6.9 ??mm CM: ?4.7 ??mm CI: ?75.4 ??% ? 70 - 86 FL/HC: ? 17.7 ??% ? 16.1 - 18.3 HC/AC: ? 1.23 ?1.09 - 1.39 FL/BPD: ?66.0 ??% FL/AC: ? 21.8 ??% ? Est. FW: ? 261 ??gm ?0 lb 9 oz OB HISTORY: Blood Type: ?? A+ : ?1 GESTATIONAL AGE: LMP: ? 18w 3d ?Date: ??07/04/23 ? LUCY: ?? 04/09/24 U/S Today: ? 19w 0d ?LUCY: ?? 04/05/24 Best: ?19w 0d ?? Det. By: ??Early ?LUCY: ?? 04/05/24 ? Ultrasound ? (09/08/23) TARGETED ANATOMY: Central Nervous System Calvarium/Cranial V.: ??Within Normal Limits Intracranial Elenita: ? Within Normal Limits Cavum: ? Within Normal Limits Parenchyma: ?Within Normal Limits Lateral Ventricles: ?Within Normal Limits Choroid Plexus: ?Within Normal Limits Cereb./Vermis: ? Within Normal Limits Cisterna Magna: ?Within Normal Limits Midline Falx: ?Within Normal Limits Spine Cervical: ?Visualized Thoracic: ?Visualized Lumbar: ?Visualized Sacral: ?Visualized Shape/Curvature: ? Visualized Head/Neck Face: ?Within Normal Limits Lips: ?Within Normal Limits Neck: ?Within Normal Limits Nuchal Fold: ? Within Normal Limits Nasal Bone: ?Present Profile: ? Visualized Orbits/Eyes: ? Visualized Mandible: ?Visualized Maxilla: ? Visualized Thorax Thoracic Contour: ?Within Normal Limits Lungs: ? Visualized 4 Chamber View: ?Within Normal Limits Cardiac Activity: ?Normal Rhythm Rt Outflow Tract: ?Visualized Lt Outflow Tract: ?Visualized Aortic Arch: ? Visualized Ductal Arch: ? Visualized SVC: ? Visualized Cardiac [place]: ?Visualized Diaphragm: ? Visualized 3 Vessel View: ? Visualized IVC: ? Visualized Abdomen Ventral Wall: ?Visualized Cord Insertion: ?Visualized Situs: ? Normal Stomach: ? Visualized Liver: ? Visualized Lt Kidney: ? Visualized Rt Kidney: ? Visualized Bladder: ? Visualized Bowel: ? Visualized Extremities Lt Humerus: ?Within Nomal Limits Rt Humerus: ?Within Normal Limits Lt Forearm: ?Within Normal Limits Rt Forearm: ?Within Normal Limits Lt Hand: ? Within Normal Limits Rt Hand: ? Within Normal Limits Lt Femur: ?Within Normal Limits Rt Femur: ?Within Normal Limits Lt Lower Leg: ?Within Normal Limits Rt Lower Leg: ?Within Normal Limits Lt Foot: ? Visualized Rt Foot: ? Visualized Other Umbilical Cord: ?3 vessel cord Genitalia: ? Male CERVIX UTERUS ADNEXA: Right Ovary Not visualized Left Ovary Not visualized Procedure Note Rachel Donnelly MD - 11/10/2023 OBSTETRICS REPORT (Signed Final 11/10/2023 08:18 am) PATIENT INFO: ID #: [id number] : [birth year] (28 yrs)(F) Name: PARISA Rueda Visit Date: 11/10/2023 08:14 am [facility] PERFORMED BY: Performed By: Jenny Gongora RDMS Attending: Rachel Donnelly MD Referred By: JOSE CHAHAL Location: [place] SERVICE(S) PROVIDED: [facility] - Detailed Morphology - [id number] INDICATIONS: 19 weeks gestation of Z3A.19 Pt's mother has cardiac septal defect VITAL SIGNS: Weight (lb): 179.0 Height: 5'6 BMI: 28.89 EVALUATION: Num Of Fetuses: 1 Heart Rate(bpm): 150 Cardiac Activity: Observed, normal rhythm Presentation: Cephalic Placenta: Anterior P. Cord Insertion: Within Normal Limits Amniotic Fluid JACKI FV: Normal --------- BIOMETRY: --------- BPD: 43.8 mm G.Age: 19w 2d OFD: 58.1 mm HC: 163.4 mm G.Age: 19w 1d AC: 132.5 mm G.Age: 18w 5d FL: 28.9 mm G.Age: 18w 6d HUM: 27.9 mm G.Age: 19w 0d CER: 19.5 mm G.Age: 18w 5d NFT: 3.63 mm NB: 4.9 mm LV: 6.9 mm CM: 4.7 mm CI: 75.4 % 70 - 86 FL/HC: 17.7 % 16.1 - 18.3 HC/AC: 1.23 1.09 - 1.39 FL/BPD: 66.0 % FL/AC: 21.8 % 20 - 24 Est. FW: 261 gm 0 lb 9 oz OB HISTORY: Blood Type: A+ : 1 GESTATIONAL AGE: LMP: 18w 3d Date: 07/04/23 LUCY: 04/09/24 U/S Today: 19w 0d LUCY: 04/05/24 Best: 19w 0d Det. By: Early LUCY: 04/05/24 Ultrasound (09/08/23) TARGETED ANATOMY: Central Nervous System Calvarium/Cranial V.: Within Normal Limits Intracranial Elenita: Within Normal Limits Cavum: Within Normal Limits Parenchyma: Within Normal Limits Lateral Ventricles: Within Normal Limits Choroid Plexus: Within Normal Limits Cereb./Vermis: Within Normal Limits Cisterna Magna: Within Normal Limits Midline Falx: Within Normal Limits Spine Cervical: Visualized Thoracic: Visualized Lumbar: Visualized Sacral: Visualized Shape/Curvature: Visualized Head/Neck Face: Within Normal Limits Lips: Within Normal Limits Neck: Within Normal Limits Nuchal Fold: Within Normal Limits Nasal Bone: Present Profile: Visualized Orbits/Eyes: Visualized Mandible: Visualized Maxilla: Visualized Thorax Thoracic Contour: Within Normal Limits Lungs: Visualized 4 Chamber View: Within Normal Limits Cardiac Activity: Normal Rhythm Rt Outflow Tract: Visualized Lt Outflow Tract: Visualized Aortic Arch: Visualized Ductal Arch: Visualized SVC: Visualized Cardiac [place]: Visualized Diaphragm: Visualized 3 Vessel View: Visualized IVC: Visualized Abdomen Ventral Wall: Visualized Cord Insertion: Visualized Situs: Normal Stomach: Visualized Liver: Visualized Lt Kidney: Visualized Rt Kidney: Visualized Bladder: Visualized Bowel: Visualized Extremities Lt Humerus: Within Nomal Limits Rt Humerus: Within Normal Limits Lt Forearm: Within Normal Limits Rt Forearm: Within Normal Limits Lt Hand: Within Normal Limits Rt Hand: Within Normal Limits Lt Femur: Within Normal Limits Rt Femur: Within Normal Limits Lt Lower Leg: Within Normal Limits Rt Lower Leg: Within Normal Limits Lt Foot: Visualized Rt Foot: Visualized Other Umbilical Cord: 3 vessel cord Genitalia: Male CERVIX UTERUS ADNEXA: Right Ovary Not visualized Left Ovary Not visualized IMPRESSION 2nd Trimester - Detailed Morphology - Summary Single intrauterine with a gestational age of 19w 0d based on Early Ultrasound (09/08/23) Composite age based on the current ultrasound alone is 19w 0d. Current growth parameters are consistent with prior dating indicating normal growth. Amniotic fluid volume is Normal Detailed anatomic evaluation was performed and no structural abnormalities are noted. Thank you for letting us participate in the care of this patient. If you are a health care provider and have any questions regarding this report, please contact the number above. For patients who have questions, please contact the health medicare coordinator that requested your imaging first. Rachel Donnelly, Staff Physician Electronically Signed Final Report 11/10/2023 08:18 am Jose Marybeth Chahal CNM IMG OB ORDERABLES documented in this encounter Visit Diagnoses Diagnosis Family history of congenital anomalies documented in this encounter Care Teams Paper Mill Manager Relationship Specialty Start Date End Date Poppy Wright APRN [address] [place] [address] PCP - General General Internal Medicine 05/24/19 documented as of this encounter
--- OUTSIDE RECORDS SUMMARY | 2024-01-09 01:47 | XMS_ITS | Encounter Summary ---
Author Organization [facility] Address [facility] [place] [address] Care Team Providers Care Anesthesiology Physician Assistant Name Role Phone Poppy Wright APRN Primary Care Provider [phone] Encounter Details Date Type Department Care Team (Latest Contact Info) Description 12/16/2023 Travel Social History Tobacco Use Types Packs/Day [...] PM EST TH Visit (TeleHealth) Dermatology at [facility] [address] [place] [address] Marian Vieyra MD [facility] DR LAKSHMI [place] [address] documented as of this encounter Visit Diagnoses Not on filedocumented in this encounter Care Teams Anesthesiology Physician Assistant Relationship Specialty Start Date End Date Poppy Wright APRN [address] [place] [address] PCP - General General Internal Medicine 05/24/19 documented as of this encounter
--- OUTSIDE RECORDS SUMMARY | 2024-01-09 01:47 | XMS_ITS | Encounter Summary ---
Author Organization [facility] Address [facility] [place] [address] Care Team Providers Care Hoop Maker Name Role Phone Poppy Wright APRN Primary Care Provider [phone] Reason for Visit * Consultation (Routine) - Closed Specialty Diagnoses / Procedures Referred By Kalin garcia Referred To Contact [facility] Diagnoses Lumbar spondylosis Lumbar facet joint pain Carlo Fernandes MD [facility] PHYSICAL [place] [address] Radha Garg MD [facility] [place] [address] Referral ID Status Reason Start Date Expiration Date V isits Requested Visits Authorized [id number] Closed Pain Consult 01/24/2022 01/24/2023 3 3 Encounter Details Date Type Department Care Team (Latest Contact Info) Description 02/12/2022 12:15 PM EST TH Visit (TeleHealth) [place] [address] Radha Garg MD [facility] [place] [address] Spondylosis of lumbar region without myelopathy or radiculopathy; Chronic pain syndrome Social History Tobacco Use Types Packs/Day Years Used Date Smoking Tobacco: Never Smokeless Tobacco: Never Sex and Gender Information Value Date Recorded Sex Assigned at Not on file Gender Identity Not on file Sexual Orientation Not on file documented as of this encounter Progress Notes * Radha Garg MD - 02/12/2022 12:15 PM EST [facility] Initial Consultation Note Date of visit: 02/12/22 : 1995 Consulting Physician: Carlo Fernandes MD [facility] [place] [address] Reason for consultation: Low back pain-evaluation for repeat lumbar medial branch radiofrequency ablation procedures History of Present Illness: Parisa Sears is a 26 y.o. female with no significant past medicalhistory, who presents for initial evaluation. The patient reports that her low back pain problems started insidiously around 2018 and worsened gradually. She trialed physical therapy which was not beneficial. She underwent bilateral sacroiliac joint injections by 01/26/2020 which were notbeneficial. Patient underwent bilateral L3, L4 and L5 lumbar medial branch radiofrequency ablation procedures on 03/30/2020. These procedures provided her 100% pain relief lasting for about 20 monthsfollowed by return of pain. Patient is interested in repeat procedures. Pain location: Bilateral low back pain, left more than right spreading to buttocks. Predominant lowback pain Quality and timing of pain: achingwhen active Pain rating: intensity severe. Aggravating factors include: sitting and standing Relieving factors include: rest Denies red flags including: bowel or bladder symptoms, fever, chills, saddle anesthesia, profound motor loss, history of cancer, history of immune compromise, weight loss. Current pain treatments include: Ibuprofen as needed Tylenol as needed Pain medications are being prescribed by OTC/primary care team. Previous pain treatments included: Parisa Sears has been seen at a pain clinic in the past. Medications: yes PT: yes Psychology: no Acupuncture: no residential caregiver: no TENS Unit: no Injections: yes Surgery: no Diagnostic Tests: MRI LUMBAR SPINE WO CONTRAST (GENERIC) 11/02/19 ?? CLINICAL HISTORY: Lumbar radiculopathy, > 6 wks. low back/sacral pain, bilateral shooting leg pain. ?? TECHNIQUE: MRI of the lumbar spine performed without intravenous contrast administration. ?? COMPARISON: Lumbar spine x-rays 05/24/[address] lumbar spine CT scan 10/26/2019. ?? FINDINGS: The vertebral bodies are maintained in height and there is no subluxation. There is a minimal convex left curvature of the lumbar spine centered at L2-3. Straightening of usual lumbar lordosis. Incidental rudimentary disc at S1-2. There are degenerative changes with mild loss of disc height posteriorly at L5-S1 with an associated annular fissure at this location. No marrow signal edema. The conus medullaris is normal in size and signal and terminates appropriately at L1-2. ?? T12-L1: No significant spinal canal or foraminal stenosis. ?? L1-L2: No significant spinal canal or foraminal stenosis. ?? L2-L3: No significant spinal canal or foraminal stenosis. ?? L3-L4: No significant spinal canal or foraminal stenosis. ?? L4-L5: Minimal disc bulge without significant spinal canal or foraminal stenosis. There is a right foraminal annular fissure. ?? L5-S1: Mild disc bulge confined to the ventral epidural fat. No significant spinal canal stenosis. Mild bilateral facet arthropathy left greater than right with mild bilateral neural foraminal stenosis. ? IMPRESSION Mild degenerative changes with no significant spinal canal stenosis. Mild bilateral facet arthropathy and mild bilateral neural foraminal stenosis at L5-S1. Review of Pain Questionnaire: Please see the [facility] health questionnaire, which the patient completed and reviewed with me in detail. Review of Electronic Chart: Today I have also reviewed available medical information in the patient's medical record at [facility] including relevant provider notes, laboratory work, and imaging. Past Medical History: Patient Active Problem List Diagnosis Code ??? Low back pain, non-specific M54.50 ??? Sacroiliac dysfunction M53.3 ??? Lumbar spondylosis M47.816 ??? Lumbar facet joint pain M54.59 No past medical history on file. Past Surgical History: No past surgical history on file. Medications: Current Outpatient Medications: ??? multivitamin Tablet, Chewable, Take by mouth., Disp: , Rfl: ??? cetirizine (ZyrTEC) 10 mg Tablet, 1 tablet as needed., Disp: , Rfl: ??? Tri-Sprintec, 28, 0.18/0.215/0.25 mg-35 mcg (28) Tablet, TAKE 1 TABLET BY MOUTH ONCE DAILY DIRECTED, Disp: , Rfl: ??? acetaminophen (Tylenol) 325 mg Tablet, Take 650 mg by mouth every 6 hours as needed for Pain., Disp: , Rfl: ??? ibuprofen (Advil;Motrin) 200 mg Tablet, Take 800 mg by mouth as needed for Pain., Disp: , Rfl: Allergies: Allergies Allergen Reactions ??? Coffee Hives ??? Raspberry (Rubus Idaeus) Causes immediate stomach pain ??? Cat Dander Other (See Comments) congestion Social History: Social History Socioeconomic History ??? Marital status: Single Spouse name: Not on file ??? Number of children: Not on file ??? Years of education: Not on file ??? Highest education level: Not on file Occupational History ??? Not on file Tobacco Use ??? Smoking status: Never Smoker ??? Smokeless tobacco: Never Used Vaping Use ??? Vaping Use: Never used Substance and Sexual Activity ??? Alcohol use: Not on file ??? Drug use: Not on file ??? Sexual activity: Not on file Other Topics Concern ??? Not on file Social History Narrative ??? Not on file Social Determinants of Health Financial Resource Strain: Not on file Food Insecurity: Not on file Transportation Needs: Not on file Physical Activity: Not on file Housing Stability: Not on file Work situation: Full-time office work Review of Systems : Constitutional: No unintentional weight loss or gain, fevers, chills, or night sweats. HENT: No recent hearing changes. No difficulty swallowing. Eyes: No recent vision changes. Respiratory: No cough or shortness of breath. Cardiovascular: No chest pain or syncope. GI: No diarrhea, nausea, vomiting, or constipation. : No dysuria, hesitancy, or urgency. No incontinence. Musculoskeletal: No muscle weakness. Low back pain Skin: No rashes or lesions. Neurologic: No numbness/tingling. No difficulty with balance. Psychiatric: Mood ok. No SI/HI. Heme/Lymph/Imm: No easy bleeding or brusing. PHYSICAL EXAM: Physical examination was limited to use of telehealth General: Patient is seated comfortably in NAD, well-groomed. HEENT: Head atraumatic, EOMI. Respiratory: Breathing comfortably on RA. Skin: No appreciable rashes or skin breakdown Psych: Appropriate affect, A&Ox3 , answers questions appropriately Musculoskeletal: Bilateral straight leg raise test negative Bilateral lumbar paraspinal area tenderness with positive lumbar facet loading test Negative bilateral JEFFREY test Patient denies any lower extremity weakness or numbness Assessment: #1 chronic bilateral low back predominantly axial pain, likely related to lumbar facet arthropathy.Patient experienced 20 months of 100% pain improvement with bilateral L3, L4 and L5 lumbar medial branch radiofrequency ablation procedures followed by return of pain. Patient is interested in repeatprocedures. Based on today's examination presentation, lumbar radiculopathy is less likely. MRI of l umbar spine done on 10/2019 demonstrated mild bilateral L5-S1 facet arthropathy. Plan: Diagnosis reviewed, treatment option addressed, and risk/benefits discussed. Self-care instructionsgiven. I am recommending a multidisciplinary treatment plan to help this patient better manage her pain. 1. Physical Therapy: None at this point 2. Clinical Health Psychologist to address issues of relaxation, behavioral change, coping style, and other factors important to improvement: None 3. Self Care Recommendations: Resume home exercises after pain improves with planned procedures. 4. Diagnostic Studies: None at this point 5. Medication Management: No new medications 6. Further procedures recommended: Patient will be scheduled for repeat bilateral L3, L4 and L5 lumbar medial branch radiofrequency ablation procedures. Scheduling team will attempt to schedule priorto end march as per patient's request. 7. Referrals: None at this point 8. Release of information: Previous records reviewed 9. Follow up: 6 weeks after the radiofrequency ablations. Radha Garg MD [facility] Spinning Machine Operator of Anesthesiology [facility] [address] [address] / [facility] CONSENT FOR TELEHEALTH Telemedicine (Video) Appointment Although not required in [place], [place] has a telemedicine consent requirement. We are working on an automated process to obtain this I obtained the patient's consent to receiving health care services at [facility] through telemedicine. We discussed the opportunities and limitations of delivering health care services through telemedicine. I told the patient that the telemedicine service is being delivered over a secure connection, except in the event of emergency conditions when such requirements may be waived. Patient agreed to the participation of other individuals assisting with their care by telemedicine, if indicated. Patient informed that telemedicine informed consent form is available for patient's review in [facility]'s patient portal, [facility]. Opportunities include: improved access to medical care; limiting spread of COVID virus; increased patient convenience Limitations include: technical difficulties; need for a subsequent in-person visit due to transmission quality problems or need for physical examination not possible over video Please note that this note was completed with the assistance of voice recognition software. As result unintentional umbrella frame maker errors and/or typographical mistakes are possible. If you notice errors please bring them to my attention. If any area requires explanation or clarification please do not hesitate to contact me. CC: Carlo Fernandes MD [facility] [place] [address] documented in this encounter Plan of Treatment Upcoming Encounters Date Type Department Care Team (Late st Contact Info) Description 02/12/2024 4:45 PM EST TH Visit (TeleHealth) Dermatology at [address] [address] Marian Vieyra MD [facility] DR [address] [address] documented as of this encounter Visit Diagnoses Diagnosis Spondylosis of lumbar region without myelopathy or radiculopathy Lumbosacral spondylosis without myelopathy Chronic pain syndrome documented in this encounter Care Teams Hoop Maker Relationship Specialty Start Date End Date Poppy Wright APRN [address] [place] [address] PCP - General General Internal Medicine 05/24/19 documented as of this encounter
--- OUTSIDE RECORDS SUMMARY | 2024-01-09 01:47 | XMS_ITS | Encounter Summary ---
Author Organization [facility] [place] [address] Care Team Providers Care It Manager Name Role Phone Poppy Wright APRN Primary Care Provider [phone] Reason for Visit * Reason Comments Follow-up F/U to RFA Encounter Details Date Type Department Care Team (Late st Contact Info) Description 04/02/2022 2:00 PM EST TH Visit (TeleHealth) [place] [address] Carlo Fernandes MD [facility] [address] PHYSICAL MEDICINE [place] [address] Lumbar spondylosis; Sacral pain Social History Tobacco Use Types Packs/Day Years Used Date Smoking Tobacco: Never Smokeless Tobacco: Never Sex and Gender Information Value Date Recorded Sex Assigned at Not on file Gender Identity Not on file Sexual Orientation Not on file documented as of this encounter Last Filed Vital Signs Vital Sign Reading Time Taken Comments Blood Pressure - - Pulse - - Temperature - - Respiratory Rate - - Oxygen Saturation - - Inhaled Oxygen Concentration - - Weight 81.6 kg (180 lb) 03/28/2022 10:09 AM EST Height 167.6 cm (5' 6) 03/28/2022 10:09 AM EST Body Mass Index 29.05 03/28/2022 10:09 AM EST documented in this encounter Progress Notes * Carlo Fernandes MD - 04/02/2022 2:00 PM EST Patient verbally consents to this telehealth visit and understands that it will be billed, similar to a clinic office visit. A telehealth visit was necessitated by the COVID-19 global pandemic. Interim history: The patient is encountered for the first time since the office visit of 01/24/2022. She is status post repeat bilateral L3, L4 and L5-DR RFA on 03/07/2022. The procedure was completed by Radha Garg MD. The patient has been feeling much better since the RFA and is already noting an 80% decrease in ce ntral sacral pain. The decrease in pain has enabled her to decrease her use of Advil and Tylenol. She required a single Advil last week and has had no Tylenol in the past two weeks. The patient is pain-free at present. She can experience mild aching in the central area of the sacrum with activities, such as prolongedsitting, prolonged standing or heavy lifting. Objective: The patient is comfortable and is noted to be in no apparent distress. The patient is alert and oriented x3. Affect is appropriate. Assessment: Encounter Diagnoses Name Primary? Lumbar spondylosis ??? Sacral pain The patient has had a good clinical response to repeat RFA, noting a marked reduction in sacral pain, helping to confirm the pain as having been facet- mediated. The degree of pain relief and the timeframe over which it has occurred are quite similar to her experience following the index RFA procedure in January 2020. She recalls reaching a pain-free state by approximately 6 weeks following the previous procedure. The patient has been asked to contact me if she experiences a recurrence of pain in the future. Consideration can then be given to repeat RFA. Carlo Fernandes MD, MS documented in this encounter Plan of Treatment Upcoming Encounters Date Type Department Care Team (Late st Contact Info) Description 02/12/2024 4:45 PM EST TH Visit (TeleHealth) Dermatology at [place] [address] [place] [id number] Marian Vieyra MD [facility] [address]-[place] [address] documented as of this encounter Visit Diagnoses Diagnosis Lumbar spondylosis Lumbosacral spondylosis without myelopathy Sacral pain Disorders of sacrum documented in this encounter Care Teams It Manager Relationship Specialty Start Date End Date Poppy Wright APRN [address] [place] [id number] PCP - General General Internal Medicine 05/24/19 documented as of this encounter
--- OUTSIDE RECORDS SUMMARY | 2024-01-09 01:47 | XMS_ITS | Encounter Summary ---
Author Organization [place] [address] Care Team Providers Care Coat Presser Name Role Phone Poppy Wright APRN Primary Care Provider [phone] Encounter Details Date Type Department Care Team (Late st Contact Info) Description 03/08/2022 Telephone [place] [address] Umm Erazo RN Social History Tobacco Use Types Packs/Day Years Used Date Smoking Tobacco: Never Smokeless Tobacco: Never Sex and Gender Information Value Date Recorded Sex Assigned at Not on file Gender Identity Not on file Sexual Orientation Not on file documented as of this encounter Miscellaneous Notes * Telephone Encounter - Umm Erazo RN - 03/08/2022 12:07 PM EST Left pt a VM letting her know to go to ED immediately if any signs or symptoms of cauda equina syndrome occur including new numbness, weakness, bladder bowel incontinence or saddle anesthesia. Also advised pt to go to ED if vomiting returns or worsens. Encouraged pt again in VM to contact PCP to discuss current symptoms. * Telephone Encounter - Umm Erazo RN - 03/08/2022 11:01 AM EST Incoming call from pt stating she was vomiting the morning after her RFA (03/07/22) Pt states she has been feeling nauseous yesterday afternoon, felt better after eating. But this morning, she woke up feeling nauseous and vomited once this morning. Pt states vomit looks appropriate to what she ate previously. Pt states that she did have some cereal this morning and some crackers. She states her nausea feelslike it improved after eating the crackers. She denies vomiting after she ate this morning. Pain score - 6-7/10 Denies fever States having a small headache, but she states she gets headaches once or twice a week. She states that her current headache feels the same as her typical headaches. She states her headache is so minor that she is able to ignore it if she does not think about it. Notified pt to contact her PCP as soon as possible to discuss her symptoms. Pt states she will continue to monitor her symptoms and if her nausea gets worse - she will call her PCP. Notified pt to go to urgent care if she can't keep anything down (vomits each time after eating or drinking) or her vomit changes to appear like she has blood in it (and not related to something she ate). Pt verbalizes understanding and intent to do this. Before ending call, encouraged pt again to contact PCP as soon as possible to discuss her symptoms. documented in this encounter Plan of Treatment Upcoming Encounters Date Type Department Care Team (Late st Contact Info) Description 02/12/2024 4:45 PM EST TH Visit (TeleHealth) Dermatology at [place] [address] [place] [address] Marian Vieyra MD [facility] [address] [place] [address] documented as of this encounter Visit Diagnoses Not on filedocumented in this encounter Care Teams Coat Presser Relationship Specialty Start Date End Date Poppy Wright APRN [address] [place] [id number] PCP - General General Internal Medicine 05/24/19 documented as of this encounter
--- OUTSIDE RECORDS SUMMARY | 2024-01-09 01:47 | XMS_ITS | Encounter Summary ---
Author Organization [facility] [place] [address] Care Team Providers Care Aegis Console Operator Track Name Role Phone Poppy Wright APRN Primary Care Provider [phone] Reason for Visit * Reason Comments Establish Care * Consultation (Urgent) - Authorized Specialty Diagnoses / Procedures Referred By Kalin garcia Referred To Contact Obstetrics and Gynecology Diagnoses Family history of other congenital malformations, deformations and chromosomal abnormalities Encounter for supervision of normal , antepartum, unspecified Detail Morph (11/09-11/23) PTS MOTHER HAS CARDIAC SEPTAL DEFECT Rachelle Chahal, [address] [address] [facility] [employer] [address] [place] [address] Referral ID Status Reason Start Date Expiration Date Visits Requested Visits Authorized [id number] Authorized Consult, Test & Treat PCP Updated and/or Approved 10/08/2023 10/07/2024 6 6 Encounter Details Date Type Department Care Team (Late Contact Info) Description 11/10/2023 9:00 AM EDT Office Visit Obstetrics [place] [address] Rachel Donnelly MD [facility] [address] [place] [address] Family history of congenital heart disease Social History Tobacco Use Types Packs/Day Years Used Date Smoking Tobacco: Never Smokeless Tobacco: Never Estimated Date of Delivery Comme nts Yes 04/05/2024 Sex and Gender Information Value Date Recorded Sex Assigned at Not on file Gender Identity Not on file Sexual Orientation Not on file documented as of this encounter Last Filed Vital Signs Vital Sign Reading Time Taken Comments Blood Pressure 116/62 11/10/2023 8:34 AM EDT Pulse - - Temperature - - Respiratory Rate - - Oxygen Saturation - - Inhaled Oxygen Concentration - - Weight 82.8 kg (182 lb 9.6 oz) 11/10/2023 8:34 A M EDT Height - - Body Mass Index 29.47 03/28/2022 10:09 AM EST documented in this encounter Progress Notes * Rachel Donnelly MD - 11/10/2023 9:00 AM EDT Maternal Medicine Consult Note Parisa Acosta is a 28 y.o. who is at 19w0d gestation LUCY 04/05/24 by ultrasound. She is seen in consultation at the request of Rachelle Chahal CNM for evaluation of family history of structural heart disease. She was seen today for maternal- medicine consultation and ultrasound evaluation. The patient reports that this has been uncomplicated to date. She had cell free DNA testing this low risk for trisomy 21, 18 and 13. The patient's mother has a ventricular septal defect. Record Review No additional issues Past Medical History: Diagnosis Date Seasonal allergies Past Surgical History: Procedure Laterality Date PRO DSTR PARAVERTEBRAL FCT JNT NRVES LUMBAR OR SACRAL ADDL Bilateral 03/07/2022 DESTRUCT BY LYTIC AGENT, FACET JNT NERVE(S), LUMBAR OR SACRAL, EA ADD (WRVU 1.16) performed by Radha Garg MD at [facility] PRO DSTR PARAVERTEBRAL FCT JNT NRVES LUMBAR OR SACRAL SINGLE Bilateral 03/07/2022 DESTRUCTI BY LYTIC AGENT, FACET JOINT NERVE(S); LUMBAR OR SACRAL, SNGL (WRVU 3.78) performed by Radha Garg MD at [facility] A family history was obtained. There is no additional history of structural abnormalities, inheritable disease, learning disability,intellectual disability, epilepsy, or repetitive loss. Her mother and sisters did not have hypertension during . No family history of early life DVT/PE or thrombophilia. Social: Is employed Denies illicit substance use or alcohol Denies tobacco use Current Outpatient Medications Medication Sig Dispense Refill no115/iron/folic acid ( 19 ORAL) daily. cetirizine (ZyrTEC) 10 mg Tablet 1 tablet as needed. No current facility-administered medications for this visit. Allergies Allergen Reactions Coffee Hives Raspberry (Rubus Idaeus) Causes immediate stomach pain Cat Dander Other (See Comments) congestion Review of Systems Contractions: none Leaking: none Bleeding: none Ultrasound 2nd Trimester - Detailed Morphology - Summary Single intrauterine with a gestational age of 19w 0d based on Early Ultrasound (09/08/23) Composite age based on the current ultrasound alone is 19w 0d. Current growth parameters are consistent with prior dating indicating normal growth. Amniotic fluid volume is Normal Detailed anatomic evaluation was performed and no structural abnormalities are noted. Physical Exam Patient Vitals for the past 24 hrs: BP 11/10/23 0834 116/62 General: alert, well appearing, in no apparent distress HEENT: normocephalic, atraumatic Extremities: normal Neurologic:alert, oriented, normal speech Abdomen: abdomen is soft without significant tenderness Psychiatric: affect is appropriate. Uterine Size: consistent with dates Assessment and Recommendations: 28 y.o. at 19w0d weeks gestation. Family history of structural heart disease. As there is a normal detailed ultrasound and the affected individual was not a first degree relative to the fetus, the risk for structural heart disease isvery low. A echocardiogram is not needed. I appreciate the opportunity to be involved in this patient's care and am available if further questions should arise. Rachel Donnelly MD 11/10/2023 Cc: Rachelle Chahal, [address] [place] [place] [address] documented in this encounter Plan of Treatment Upcoming Encounters Date Type Department Care Team (Late st Contact Info) Description 02/12/2024 4:45 PM EST TH Visit (TeleHealth) Dermatology at [facility] [address] [place] [address] Marian Vieyra MD [facility] [address] [place] [address] documented as of this encounter Visit Diagnoses Diagnosis Family history of congenital heart disease Family history of congenital anomalies documented in this encounter Care Teams Aegis Console Operator Track Relationship Specialty Start Date End Date Poppy Wright APRN [address] [place] [address] PCP - General General Internal Medicine 05/24/19 documented as of this encounter
--- OUTSIDE RECORDS SUMMARY | 2024-01-09 01:47 | XMS_ITS | Encounter Summary ---
Author Organization [facility] [place] [address] Care Team Providers Care Novelty Printing Machine Operator Name Role Phone Poppy Wright APRN Primary Care Provider [phone] Encounter Details Date Type Department Care Team (Latest Contact Info) Description 01/29/2022 Travel Social History Tobacco Use Types Packs/Day [...] PM EST TH Visit (TeleHealth) Dermatology at [facility] [address] [place] [address] Marian Vieyra MD [facility] [address] [place] [address] documented as of this encounter Visit Diagnoses Not on filedocumented in this encounter Care Teams Novelty Printing Machine Operator Relationship Specialty Start Date End Date Poppy Wright APRN [address] [place] [address] PCP - General General Internal Medicine 05/24/19 documented as of this encounter
--- OUTSIDE RECORDS SUMMARY | 2024-01-09 01:47 | XMS_ITS | Encounter Summary ---
Author Organization [facility] [place] [address] Care Team Providers Care Sales Department Clerk Name Role Phone Poppy Wright HUBER Primary Care Provider [phone] Reason for Visit * Auth/Cert Specialty Diagnoses [...] SACRAL, SNGL (WRVU 3.78) Radha Garg MD [facility] [place] [address] [facility] Referral ID Status Reason Start Date Expiration Date Visits Re quested Visits Authorized [id number] 1 1 Encounter Details Date Type Department Care Team (Latest Contact Info) Description 03/07/2022 7:23 AM EST - 03/07/2022 9:07 AM [facility] Hospital En[place] [id number] Radha Garg MD [facility] [place] [address] Spondylosis of lumbar region without myelopathy or radiculopathy Discharge Disposition: Home Social History Tobacco Use Types Packs/Day Years Used Date Smoking Tobacco: Never Smokeless Tobacco: Never Sex and Gender Information Value Date Recorded Sex Assigned at Not on file Gender Identity Not on file Sexual Orientation Not on file documented as of this encounter Last Filed Vital Signs Vital Sign Reading Time Taken Comments Blood Pressure 129/85 03/07/2022 8:50 AM EST Pulse 86 03/07/2022 8:05 AM EST Temperature - - Respiratory Rate 16 03/07/2022 8:50 AM EST Oxygen Saturation 100% 03/07/2022 8:55 AM EST Inhaled Oxygen Concentration - - Weight 79.4 kg (175 lb) 03/07/2022 7:29 AM EST Height 167.6 cm (5' 6) 03/07/2022 7:29 AM EST Body Mass Index 28.25 03/07/2022 7:29 AM EST documented in this encounter Medications at Time of Discharge Medication Sig Dispensed Refills Start Date End Date cetirizine (ZyrTEC) 10 mg Tablet 1 tablet as needed. 10/24/2016 multivitamin Tablet, Chewable Take by mouth. 11/10/2023 Tri-Sprintec, 28, 0.18/0.215/0.25 mg-35 mcg (28) Tablet TAKE 1 TABLET BY MOUTH ONCE DAILY DIRECTED 03/30/2019 11/09/2023 acetaminophen (Tylenol) 325 mg Tablet Take 650 mg by mouth every 6 hours as needed for Pain. 11/10/2023 ibuprofen (Advil;Motrin) 200 mg Tablet Take 800 mg by mouth as needed for Pain. 11/09/2023 documented as of this encounter H&P Notes * Russ Mayers MD - 03/07/2022 7:53 AM EST Patient Name: Parisa Sears Patient Age: 26 y.o. Birthdate: 1995 Admit date: 03/07/2022 Attending Physician: Radha Garg MD PREPROCEDURE HISTORY AND PHYSICAL Date of Visit: March 07, 2022 Chief Complaint: Low back pain HPI: Subjective Parisa Sears is a 26 y.o. female who presents today for bilateral lumbar RFA. The history is obtained from the patient, and I have reviewed medical records provided by the referring physician and located in the electronic medical record to fill in gaps in the patient's recollection of events, treatments and outcomes. LOCATION: Low back pain /neck pain PAIN LEVEL AT REST 6/10 PAST MEDICAL HISTORY: No past medical history on file. PAST SURGICAL HISTORY: No past surgical history on file. FAMILY HISTORY: No family history on file. SOCIAL HISTORY: Social History Socioeconomic History ??? Marital status: Single Spouse name: Not on file ??? Number of children: Not on file ??? Years of education: Not on file ??? Highest education level: Not on file Occupational History ??? Not on file Tobacco Use ??? Smoking status: Never ??? Smokeless tobacco: Never Vaping Use ??? Vaping Use: Never used [...] on file Housing Stability: Not on file ALLERGIES: Coffee, Raspberry (rubus idaeus), and Cat dander MEDICATIONS: Medications 03/07/22 0729 Medication Sig Taking? multivitamin Tablet, Chewable Take by mouth. Yes cetirizine (ZyrTEC) 10 mg Tablet 1 tablet as needed. Yes Tri-Sprintec, 28, 0.18/0.215/0.25 mg-35 mcg (28) Tablet TAKE 1 TABLET BY MOUTH ONCE DAILY DIRECTED Yes acetaminophen (Tylenol) 325 mg Tablet Take 650 mg by mouth every 6 hours as needed for Pain. Yes ibuprofen (Advil;Motrin) 200 mg Tablet Take 800 mg by mouth as needed for Pain. Yes ROS: Pt denies recent fever, chills, infection, wounds, hospitalizations, ED visits, use of antibiotics.Otherwise, as described above. PHYSICAL EXAM: BP 127/76 (Patient Position: Sitting) Pulse 82 Ht 167.6 cm (5' 6) Wt 79.4 kg (175 lb) [id number]% BMI 28.25 kg/m?? General: patient well developed and is non-distressed Head: normocephalic and atraumatic CV: normal rate, normal rhythm Pulmonary: effort and breath sounds normal, no wheezing Skin: non-diaphoretic and no rashes noted MSK: Low back pain Physical Exam RADIOLOGIC DATA: Reviewed prior to procedure LABS/DX RESULTS: Labs reviewed and no new labs pertinent to today's procedure. ASSESSMENT: 1. Spondylosis of lumbar region without myelopathy or radiculopathy PLAN: Proceed with bilateral lumbar RFA Russ Mayers MD MPH PGY5 Pain Management Fellow [address] [phone] / [facility] documented in this encounter Miscellaneous Notes * Op Note - Radah Garg MD - 03/07/2022 8:08 AM EST Pain Management Operative Note Patient Name: Parisa Sears : [id number] MR#: [id number] Case Date: 03/07/2022 Surgeon: Surgeon(s) and Role: * Radha Garg MD - Primary * Russ Mayers MD - Fellow Present on Admission: ??? Lumbar spondylosis Postoperative diagnosis: Same Procedure(s) (LRB): DESTRUCT BY LYTIC AGENT, FACET JNT NERVE(S), LUMBAR OR SACRAL, EA ADD (WRVU 1.16) (Bilateral) DESTRUCTI BY LYTIC AGENT, FACET JOINT NERVE(S); LUMBAR OR SACRAL, SNGL (WRVU 3.78) (Bilateral) LUMBAR MEDIAL BRANCH RADIOFREQUENCY Patient: Parisa Sears Provider: Russ Mayers MD Parisa Sears has been referred to the Pain Management Center for radiofrequency treatment of chronic axial back pain. Ms. Sears has had long standing back pain which is facet joint generated and which has been refractory to other therapies. Local anesthetic medial branch blocks resulted in Ms. Sears reporting a significant reduction of the usual axial component of pain for at least the duration of the local anesthetic effect. Ms. Sears was interviewed and the medical record reviewed. There were no medical, pharmacologic, radiographic or other structural contraindications to attempting fluoroscopically guided radiofrequency treatment. Risks and expected side effects as well as potential benefit of the procedure were reviewed with Ms. Sears, and she voiced concerns addressed. The printed consent form was signed and witnessed. Standard time-out procedure was performed. Ms. Sears was placed in the prone position on the fluoroscopy table and automated blood pressure cuff and pulse oximeter applied. The skin entry points for approaching the anatomic target points ofthe segmental medial branches of bilaterally L3, L4 and L5-DR were identified with fluoroscopy and marked. Following thorough Chlorhexadine preparation of the skin and draping and 1% lidocaine infiltration of the skin entry points and subcutaneous tissues, a single 10 cm 18 guage curved needle witha 10mm active tip radiofrequency cannula was placed under fluoroscopic guidance along or across theanatomic course of each respective segmental medial branch. Each placement was stimulated at 2Hz without any evidence of distal myotomal stimulation. Lidocaine preservative free 2% was injected at each level after negative aspiration. At each placement a continuous mode radiofrequency treatment wasdone at 80 degrees C for 90 secs and then rotated 180degrees and then repeated. Once the radiofrequency treatment was completed 0.5 cc 0.25% Bupivacaine was injected. The needles were then removed without difficulty. Patient's neurological examination was unchanged postprocedure. This radiofrequency treatment should result in the denervation of the bilaterally L4-L5 and L5-S1. A total of 4 facets were expected to be denervated from today's treatment. Ms. Sears's vital signs were stable throughout the procedure and were as recorded in the docflowsheet by the nursing staff. If given, dosages of intravenous drugs for anxiolysis and analgesia were documented in the Medication Administration Record (MAR). 1mg midazolam administered intravenous. Follow up plans and appointments were discussed with Parisabeatriz Sandovalnham. Post procedure instructionwas given as documented in the nursing documentation and having met discharge criteria, she was discharged from the [facility]. Russ Mayers MD MPH PGY5 Pain Fellow Discussed and performed with Dr. Garg who is supervising and attending physician. I was the attending physician supervising the fellow in the above care and I was present with the fellow for the entire procedure. Radha Garg MD [facility] Demolition Engineer of Anesthesiology [facility] [employer] [address] [phone] / [facility] CC: Carlo Fernandes MD [facility] [place] [address] documented in this encounter Plan of Treatment Upcoming Encounters Date Type Department Care Team (Late st Contact Info) Description 02/12/2024 4:45 PM EST TH Visit (TeleHealth) Dermatology at [address] [address] Marian Vieyra MD [facility] [address] [address] documented as of this encounter Procedures Procedure Name Priority Date/Time Associated Diagnosis Comments Dstr Paravertebral Fct Jnt Nrves Lumbar or Sacral Single 03/07/2022 8:00 AM EST Spondylosis of lumbar region without myelopathy or radiculopathy Dstr Paravertebral Fct Jnt Nrves Lumbar or Sacral Addl 03/07/2022 8:00 AM EST Spondylosis of lumbar region without myelopathy or radiculopathy DESTRUCT BY LYTIC AGENT, FACET JNT NERVE(S), LUMBAR OR SACRAL, EA ADD Routine 03/07/2022 7:24 AM EST Spondylosis of lumbar region without myelopathy or radiculopathy DESTRUCTI BY LYTIC AGENT, FACET JOINT NERVE(S); LUMBAR OR SACRAL, SNGL Routine 03/07/2022 7:24 AM EST Spondylosis of lumbar region without myelopathy or radiculopathy documented in this encounter Visit Diagnoses Diagnosis Spondylosis of lumbar region without myelopathy or radiculopathy- Primary Lumbosacral spondylosis without myelopathy Lumbar spondylosis Lumbosacral spondylosis without myelopathy documented in this encounter Active and Recently Administered Medications Times are shown in EST. PRN Medication Order 03/05/2022 03/06/2022 03/07/2022 BUpivacaine (pf) (Marcaine) (2.5 mg/mL) 0.25% injection (CANCELED) ONCE PRN, Starting on Victoria 03/07/22 at 0820, Until [place] 03/07/22 at 1107, Intra-Operative (Intra-Procedure), Routine 0820 (Given - Provid er: Russ Mayers MD) lidocaine (pf) (Xylocaine) (10 mg/mL) 1% injection (CANCELED) ONCE PRN, Starting on [place] 03/07/22 at 0821, Until [place] 03/07/22 at 1107, Intra-Operative (Intra-Procedure), Routine 0821 (Given - Provid er: Russ Mayers MD) lidocaine (Xylocaine) (20 mg/mL) 2% injection (CANCELED) ONCE PRN, Starting on [place] 03/07/22 at 0826, Until [place] 03/07/22 at 1107, Intra-Operative (Intra-Procedure), Routine 0826 (Given - Provid er: Russ Mayers MD) midazolam (pf) (Versed) (1 mg/mL) injection (CANCELED) ONCE PRN, Starting on Victoria 03/07/22 at 0833, Until [place] 12 at 1107, Intra-Operative (Intra-Procedure), Routine 0833 (Given - Provid er: Odalis Anderson RN) documented in this encounter Care Teams Sales Department Clerk Relationship Specialty Start Date End Date Poppy Wright APRN [address] [place] [address] PCP - General General Internal Medicine 05/24/19 documented as of this encounter
--- OUTSIDE RECORDS SUMMARY | 2024-01-09 01:47 | XMS_ITS | Clinical Summary ---
Author Organization [facility] Address [facility] [place] [address] Care Team Providers Care Ferry Terminal Supervisor Name Role Phone Poppy Wright APRN Primary Care Provider [phone] Allergies Active Allergy Reactions Criticality Noted Date Comments Cat Dander Other (See Comments) Low 05/24/2019 congestion Coffee Hives Medium 05/24/2019 Raspberry (Rubus Idaeus) Medium 06/11/2019 Causes immediate stomach pain Medications Medication Sig Dispensed Refills Start Date End Date Status cetirizine (ZyrTEC) 10 mg Tablet 1 tablet as needed. 10/24/2016 Act paloma no115/iron/folic acid ( 19 ORAL) daily. Active erythromycin with ethanoL (EMGEL) 2 % GelIndications:Acne vulgaris Apply topically to affected areas on face twice daily. 30 g 1 12/16/2023 Active Active Problems Problem Noted Date Diagnosed Date Spondylosis of lumbar region without myelopathy or radiculopathy 03/07/2022 Lumbar facet joint pain 01/24/2022 Lumbar spondylosis 02/26/2020 Low back pain, non-specific 05/24/2019 Sacroiliac dysfunction 05/24/2019 Estimated Date of Delivery Comme nts Yes 04/05/2024 Encounters Date Type Department Care Team Description 12/17/2023 Telephone Dermatology at [facility] [address] [place] [address] Marian Vieyra MD 12/16/2023 8:20 AM EDT Office Visit Dermatology at [facility] [address] [place] [address] Marian Vieyra MD Acne vulgaris 12/16/2023 Travel 11/10/2023 9:00 AM EDT Office Visit Obstetrics [place] [address] Rachel Donnelly MD Family history of congenital heart disease 11/10/2023 7:38 AM EDT - 11/10/2023 11:59 PM EDT Hospital [place] [address] Jose Chahal CNM Family history of congenital anomalies Discharge Disposition: Home 11/10/2023 Travel 11/09/2023 Orders Only Obstetrics and Gynecology at [address] [address] Rachel Donnelly MD from Last 3 Months Social History Tobacco Use Types Packs/Day Years Used Date Smoking Tobacco: Never Smokeless Tobacco: Never Estimated Date of Delivery Comme nts Yes 04/05/2024 Sex and Gender Information Value Date Recorded Sex Assigned at Not on file Gender Identity Not on file Sexual Orientation Not on file Last Filed Vital Signs Vital Sign Reading Time Taken Comments Blood Pressure 116/62 11/10/2023 8:34 AM EDT Pulse 86 03/07/2022 8:05 AM EST Temperature 36.9 ??C (98.5 ??F) 05/15/2020 7:54 AM ES T Respiratory Rate 16 03/07/2022 8:50 AM EST Oxygen Saturation 100% 03/07/2022 8:55 AM EST Inhaled Oxygen Concentration - - Weight 82.8 kg (182 lb 9.6 oz) 11/10/2023 8:34 A M EDT Height 167.6 cm (5' 6) 03/28/2022 10:09 AM EST Body Mass Index 29.47 03/28/2022 10:09 AM EST Plan of Treatment Upcoming Encounters Date Type Department Care Team (Late st Contact Info) Description 02/12/2024 4:45 PM EST TH Visit (TeleHealth) Dermatology at [facility] [address] [place] [address] Marian Vieyra MD [facility] [address] [place] [address] Health Maintenance Due Date Last Done Comments HPV vaccine (1 - 3-dose series) 2012 HIV screen 09/03/2015 Hepatitis C Screening 09/03/2015 Hepatitis B vaccine (0-59 yrs) (1) 2016 Tetanus/Diphtheria/Pertussis Vaccines (1 - Tdap) 2016 PAP Smear 2018 Covid-19 Vaccine (3 - season) 12/07/202308/2020, 07/13/2020 Influenza (Flu) vaccine (1 o f 1 - Influenza standard series) 12/07/2023 RSV Vaccine (1 - Risk pregna nt 1-dose series) 02/09/2024 Procedures Procedure Name Priority Date/Time Associated Diagnosis Comments US OB DETAILED MORPHOLOGY Routine 11/10/2023 8:29 AM EDT Family history of congenital anomalies from Last 3 Months Results * US OB Detailed Morphology (11/10/2023 8:29 AM EDT) WORKSTATION ID [id number] 1 DH RAD Anatomical Region Laterality Modality Pelvis, Abdomen Ultrasound [...] who have questions, please contact the health childcare center administrator that requested your imaging first. ? Rachel Donnelly, Staff Physician Electronically Signed Final Report ?? 11/10/2023 08:18 am Narrative 11/10/2023 8:18 AM EDT OBSTETRICS REPORT ?(Signed Final 11/10/2023 08:18 am) PATIENT INFO: ID #: ? [id number] ?: ??[birth year] (28 yrs)(F) Name: ? PARISA Rueda ? Visit Date: 11/10/2023 08:14 am ? BEAUPARLANT PERFORMED BY: Performed By: ? Jenny Gongora RDMS Attending: ?Cony BRAXTON, Rachel Beck Referred By: ?JOSE CHAHAL Location: ? [place] SERVICE(S) PROVIDED: [facility] - Detailed Morphology - [id number] ? [id number] INDICATIONS: 19 weeks gestation of ?Z3A.19 Pt's [...] Arch: ? Visualized SVC: ? Visualized Cardiac [place]: ?Visualized Diaphragm: ? Visualized 3 Vessel View: [...] 11/10/2023 08:18 am) PATIENT INFO: ID #: [id number] : [birth year] (28 yrs)(F) Name: PARISA Rueda Visit Date: 11/10/2023 08:14 am BEAUPARLANT PERFORMED BY: Performed By: Jenny Gongora RDMS Attending: Rachel Donnelly MD Referred By: JOSE CHAHAL Location: [place] SERVICE(S) PROVIDED: [facility] - Detailed Morphology - [id number] INDICATIONS: 19 weeks gestation of Z3A.19 Pt's [...] 1.39 FL/BPD: 66.0 % FL/AC: 21.8 % - 24 Est. FW: 261 gm 0 [...] Visualized Ductal Arch: Visualized SVC: Visualized Cardiac [place]: Visualized Diaphragm: Visualized 3 Vessel View: Visualized [...] who have questions, please contact the health childcare center administrator that requested your imaging first. Rachel Donnelly, Staff Physician Electronically Signed Final Report 11/10/2023 08:18 am Jose Chahal CNM [facility] US OB ORDERABLES from Last 3 Months Care Teams Ferry Terminal Supervisor Relationship Specialty Start Date End Date Poppy Wright APRN [address] [place] [address] PCP - General General Internal Medicine 05/24/19
--- OUTSIDE RECORDS SUMMARY | 2024-01-09 01:47 | XMS_ITS | Encounter Summary ---
Author Organization [facility] [place] [address] Care Team Providers Care Assembly Machine Tender Name Role Phone Poppy Wright HUBER Primary Care Provider Reason for Visit [...] [facility] [place] [address] [facility] Referral ID Status Reason Start Date Expiration Date Visits Re quested Visits Authorized [id number] 1 1 Encounter Details Date Type Department Care Team (Late st Contact Info) Description 03/07/2022 8:00 AM EST - 03/07/2022 8:45 AM EST [place] [phone] Radha Garg MD [facility] [address] DESTRUCT BY LYTIC AGENT, FACET JNT NERVE(S), LUMBAR OR SACRAL, EA ADD (WRVU 1.16) Social History Tobacco Use Types Packs/Day Years Used Date Smoking Tobacco: Never Smokeless Tobacco: Never Sex and Gender Information Value Date Recorded Sex Assigned at Not on file Gender Identity Not on file Sexual Orientation Not on file documented as of this encounter Last Filed Vital Signs Vital Sign Reading Time Taken Comments Blood Pressure 134/88 03/07/2022 8:45 AM EST Pulse 86 03/07/2022 8:05 AM EST Temperature - - Respiratory Rate 16 03/07/2022 8:30 AM EST Oxygen Saturation 100% 03/07/2022 8:45 AM EST Inhaled Oxygen Concentration - - [...] (5' 6) Wt 79.4 kg (175 lb) [id number]% BMI 28.25 kg/m?? General: patient well developed [...] Mayers MD MPH PGY5 Pain Management Fellow [place] [phone] / [facility] documented in this encounter Miscellaneous Notes * Op Note - Radha Garg MD - 03/07/2022 8:08 AM EST Pain Management Operative Note Patient Name: Parisa Sears : [id number] MR#: [id number] Case Date: 03/07/2022 Surgeon: Surgeon(s) and Role: [...] up plans and appointments were discussed with Parisa Sears. Post procedure instructionwas given as documented in [...] procedure. Radha Garg MD [facility] Sheet Metal Erector of Anesthesiology [facility] [address] [address] / [facility] CC: Carlo Fernandes MD [facility] [place] [address] documented in this encounter Plan of Treatment Upcoming Encounters Date Type Department Care Team (Late st Contact Info) Description 02/12/2024 4:45 PM EST TH Visit (TeleHealth) Dermatology at [facility] [address] [place] [address] Marian Vieyra MD [facility] [place] [address] documented as of this encounter Procedures Procedure [...] myelopathy Lumbar spondylosis Lumbosacral spondylosis without myelopathy Spondylosis of lumbar region without myelopathy or radiculopathy Lumbosacral spondylosis without myelopathy documented in this encounter Administered Medications Inactive Administered Medications - up to 3 most recent administrations Medication Order MAR Action Action Date Dose Rate Site BUpivacaine (pf) (Marcaine) (2.5 mg/mL) 0.25% injection ONCE PRN, Starting on Victoria 03/07/22 at 0820, Until [place] 03/07/22 at 1107, Intra-Operative (Intra-Procedure), Routine Given 03/07/2022 8:20 AM EST 2 mLs lidocaine (pf) (Xylocaine) (10 mg/mL) 1% injection ONCE PRN, Starting on Victoria 12 at 0821, Until [place] 03/07/22 at 1107, Intra-Operative (Intra-Procedure), Routine Given 03/07/2022 8:21 AM EST 6 mLs lidocaine (Xylocaine) (20 mg/mL) 2% injection ONCE PRN, Starting on [place] 03/07/22 at 0826, Until Victoria 03/07/22 at 1107, Intra-Operative (Intra-Procedure), Routine Given 03/07/2022 8:26 AM EST 6 mLs midazolam (pf) (Versed) (1 mg/mL) injection ONCE PRN, Starting on [place] 03/07/22 at 0833, Until Victoria 03/07/22 at 1107, Intra-Operative (Intra-Procedure), Routine Given 03/07/2022 8:33 AM EST 1 mg documented in this encounter Active and Recently Administered Medications Times are shown in EST. PRN Medication Order 03/05/2022 03/06/2022 03/07/2022 BUpivacaine (pf) (Marcaine) (2.5 mg/mL) 0.25% injection (CANCELED) ONCE PRN, Starting on Victoria 12 at 0820, Until Victoria 03/07/22 at 1107, Intra-Operative (Intra-Procedure), Routine 0820 (Given - Provid er: Russ Mayers MD) lidocaine (pf) (Xylocaine) (10 mg/mL) 1% injection (CANCELED) ONCE PRN, Starting on [place] 03/07/22 at 0821, Until [place] 03/07/22 at 1107, Intra-Operative (Intra-Procedure), Routine 08 (Given - Provid er: Russ Mayers MD) lidocaine (Xylocaine) (20 mg/mL) 2% injection (CANCELED) ONCE PRN, Starting on [place] 03/07/22 at 0826, Until [place] 03/07/22 at 1107, Intra-Operative (Intra-Procedure), Routine 0826 (Given - Provid er: Russ Mayers MD) midazolam (pf) (Versed) (1 mg/mL) injection (CANCELED) ONCE PRN, Starting on [place] 03/07/22 at 0833, Until [place] 03/07/22 at 1107, Intra-Operative (Intra-Procedure), Routine 0833 (Given - Provid er: Odalis Anderson RN) documented in this encounter Care Teams Assembly Machine Tender Relationship Specialty Start Date End Date Poppy Wright APRN [address] [place] [address] PCP - General General Internal Medicine 05/24/19 documented as of this encounter
--- OUTSIDE RECORDS SUMMARY | 2024-01-09 01:47 | XMS_ITS | Encounter Summary ---
Author Organization [facility] Address [facility] [place] [address] Care Team Providers Care Wood Pole Treater Name Role Phone Poppy Wright APRN Primary Care Provider [phone] Reason for Referral * Consultation (Routine) - Closed Specialty Diagnoses / Procedures Referred By Kalin garcia Referred To Contact Pain and Spine Center Diagnoses Lumbar spondylosis Lumbar facet joint pain Carlo Fernandes MD [facility] DR PHYSICAL MED[place] [address] Radha Garg MD [facility] [place] [address] Referral ID Status Reason Start Date Expiration Date V isits Requested Visits Authorized [id number] Closed Pain Consult 01/24/2022 01/24/2023 3 3 Reason for Visit * Reason Comments Follow-up Encounter Details Date Type Department Care Team (Late st Contact Info) Description 01/24/2022 8:30 AM EDT Office Visit [place] [address] Carlo Fernandes MD [facility] DR PHYSICAL MEDICINE [place] [address] Lumbar facet joint pain (Primary Dx); Lumbar spondylosis Social History Tobacco Use Types Packs/Day Years Used Date Smoking Tobacco: Never Smokeless Tobacco: Never Sex and Gender Information Value Date Recorded Sex Assigned at Not on file Gender Identity Not on file Sexual Orientation Not on file documented as of this encounter Progress Notes * Carlo Fernandes MD - 01/24/2022 8:30 AM EDT Interim history: The patient returns for the first time since the visit of 05/15/2020. On that date, she reported excellent relief of axial low back pain symptoms following bilateral L3, L4 and L5-DR radiofrequency ablation. The procedure was completed by Radha Garg MD, on 03/30/2020. The patient continued to feel well post-procedure until this past month, when she began to note theslow recurrence of symptoms. She describes the symptoms as being identical in location to those experienced before the RFA. There was a further increase in pain 9 days ago. The patient describes central sacral pain with pain of throbbing to sharp quality in bilateral sacroiliac regions. The pain symptoms have been accompanied by some local swelling in the affected areas. Pain is intermittent and is currently graded as 1-2/10 in intensity. Pain is worst in the morning and at the end of a day. Exacerbating factors: Prolonged sitting or standing, transitional movements and, on occasion, stairdescent. Alleviating factors: Advil and Tylenol. The patient denies lower extremity pain radiation, numbness, tingling or focal lower extremity weakness. Objective: The patient is seated comfortably and in no apparent distress. No pain behaviors are observed during today's evaluation. Gait is normal. There is no difficulty performing heel or toe walking. Patient bears weight throughthe lateral borders of the feet and static standing. There is mild anterior rotation of the pelvis. Standing iliac crest palpation is level. Standing flexion test is negative bilaterally. The patient reports the reproduction of central sacral pain at endrange lumbar flexion and extension. Palpation: Tenderness is found over the sacrum, although bilateral sacroiliac joints are nontender.There is mild tenderness over quadratus lumborum, left greater than right. Motor: 5/5 for bilateral hip and knee flexors, knee extensors, ankle dorsiflexors and EHL. Sensation: Intact to light touch throughout the lower extremities. Straight leg raising: Negative bilaterally. Muscle stretch reflexes: 2+ bilaterally for quadriceps and Achilles tendon. Assessment: Encounter Diagnoses Name Primary? Lumbar facet joint pain Yes ??? Lumbar spondylosis The patient has experienced the recurrence of axial low back pain. The symptoms are identical to those experienced prior to radiofrequency ablation in March 2020. The symptoms have recurred over the past month following more than 16 months of near complete pain relief. The patient has had a recurrence of facet-mediated pain. She is a good candidate for repeat radiofrequency ablation. Given that her last RFA was completed more than one year ago, diagnostic lumbar medial branch blocks will be required prior to consideration of repeat RFA. The patient will be referred to Radha Garg MD for consideration of diagnostic lumbar medial branchblocks and repeat radiofrequency ablation. Plan: 1. Pain management consultation with Dr. Garg. 2. Follow-up 1 month post-RFA. Carlo Fernandes MD, [place] documented in this encounter Plan of Treatment Upcoming Encounters Date Type Department Care Team (Late st Contact Info) Description 02/12/2024 4:45 PM EST TH Visit (TeleHealth) Dermatology at [address] [address] Marian Vieyra MD [facility] [address] [place] [address] Scheduled Referrals Name Type Priority Associated Diagnoses Orde r Schedule Referral to Pain and Spine Center (Internal only) Outpatient Referral Routine Lumbar spondylosis Lumbar facet joint pain Ordered: 01/24/2022 documented as of this encounter Visit Diagnoses Diagnosis Lumbar facet joint pain- Primary Other symptoms referable to back Lumbar spondylosis Lumbosacral spondylosis without myelopathy documented in this encounter Care Teams Wood Pole Treater Relationship Specialty Start Date End Date Poppy Wright APRN [address] [place] [address] PCP - General General Internal Medicine 05/24/19 documented as of this encounter
--- OUTSIDE RECORDS SUMMARY | 2024-01-09 01:47 | XMS_ITS | Encounter Summary ---
Author Organization [facility] [place] [address] Care Team Providers Care Fire Services Plumber Name Role Phone Poppy Wright APRN Primary Care Provider [phone] Encounter Details Date Type Department Care Team (Latest Contact Info) Description 02/12/2022 Travel Social History Tobacco Use Types Packs/Day [...] PM EST TH Visit (TeleHealth) Dermatology at [facility] [address] [place] [address] Marian Vieyra MD [facility] [address] [address] documented as of this encounter Visit Diagnoses Not on filedocumented in this encounter Care Teams Fire Services Plumber Relationship Specialty Start Date End Date Poppy Wright APRN [address] [place] [address] PCP - General General Internal Medicine 05/24/19 documented as of this encounter
--- OUTSIDE RECORDS SUMMARY | 2024-01-09 01:47 | XMS_ITS | Encounter Summary ---
[place] [address] Care Team Providers Care Dimethylaniline Sulfator Operator Name Role Phone Poppy Wright HUBER Primary Care Provider Reason for Referral * Consultation (Urgent) - Authorized Specialty Diagnoses / Procedures Referred By Kalin garcia Referred To Contact Obstetrics and Gynecology Diagnoses Family history of other congenital malformations, deformations and chromosomal abnormalities Encounter for supervision of normal , antepartum, unspecified Detail Morph (11/09-11/23) PTS MOTHER HAS CARDIAC SEPTAL DEFECT Rachelle Chahal CNM [address] [place] [address] [address] [place] [address] [facility] Product Manufacturing Professional [address] [place] [address] Referral ID Status Reason Start Date Expiration Date Visits Requested Visits Authorized [id number] Authorized Consult, Test & Treat PCP Updated and/or Approved 10/08/2023 10/07/2024 6 6 Encounter Details Date Type Department Care Team (Late st Contact Info) Description 10/08/2023 Transcribe Orders eDH Incoming Referrals [phone] Rachelle Chahal CNM [address] [place] [address] [address] [place], [place] [id number] Family history of other congenital malformations, deformations and chromosomal abnormalities; Encounter for supervision of normal , antepartum, unspecified Social History Tobacco Use Types Packs/Day Years [...] PM EST TH Visit (TeleHealth) Dermatology at [address] [address] Marian Vieyra MD [facility] [address] [place] [address] Scheduled Referrals Name Type Priority Associated Diagnoses Orde r Schedule Referral to Maternal Medicine Outpatient Referral Urgent Family history of other congenital malformations, deformations and chromosomal abnormalities Encounter for supervision of normal , antepartum, unspecified Ordered: 10/08/2023 documented as of this encounter Visit Diagnoses Diagnosis Family history of other congenital malformations, deformations and chromosomal abnormalities Encounter for supervision of normal , antepartum, unspecified documented in this encounter Care Teams Dimethylaniline Sulfator Operator Relationship Specialty Start Date End Date Poppy Wright APRN [address] [address] PCP - General General Internal Medicine 05/24/19 documented as of this encounter
--- OUTSIDE RECORDS SUMMARY | 2024-01-09 01:48 | XMS_ITS | Encounter Summary ---
[place] [address] Care Team Providers Care Addiction Nurse Name Role Phone Poppy Wright APRN Primary Care Provider [phone] Encounter Details Date Type Department Care Team (Late st Contact Info) Description 12/06/2019 Telephone [facility] [place] [address] Dustin Blakely RN Social History Tobacco Use Types Packs/Day Years Used Date Smoking Tobacco: Never Smokeless Tobacco: Never Sex and Gender Information Value Date Recorded Sex Assigned at Not on file Gender Identity Not on file Sexual Orientation Not on file documented as of this encounter Miscellaneous Notes * Telephone Encounter - Dustin Blakely RN - 12/06/2019 4:27 PM EDT Parisa Sears :1995 Contact made with patient: I spoke to Ms. Sears at 4:27 PM regarding her upcoming Bilateral SI joint injection scheduled on 12/16/2019 (date) scheduled at 1500 (time) with Dr. Dena MD. Medication and Allergy reconciliation: 1. Changes were made in the telephone encounter per patient; marked as reviewed, and closed. 2. Patient confirmed no IVP dye allergy. 3. Have you had any steroid injections anywhere in your body within the last two weeks? no Arrival time: The patient was instructed to arrive at 1430 (30 minutes prior to procedure start time - 60 minutesprior for RF patients with a pacemaker) on 12/16/2019 (date of procedure). Antibiotics/Skin assessment/Illness symptoms/Pain level assessment : 1. The patient confirmed that she is not taking antibiotics at this time. 2. The patient confirmed that she has notbeen in the emergency room in the last two weeks. 3.. The patient confirmed that she does not have any rashes, blisters, or skin breakdown on their body. 4. The patient confirmed that she does not have any active infections. 5. The patient confirmed that she and any household members have not had any symptoms of illness within the past 14 days: fever, chills, cold, flu, nausea, vomiting, diarrhea, shortness of breath, loss of taste, or recent stroke. 6. The patient confirmed that she is still experiencing significant pain. (Significant pain is defined as interfering with performing ADL.) 7. The patient confirmed that she have not been in contact with anyone known or suspected to have COVID-19. 8. The patient confirmed that she have not been suspected or tested for COVID-19 Pain and Anti-anxiety Medications: 1. Nerve Block Procedure Patients: Patient was instructed NOT to take their pain medications on theday of the procedure and anti-anxiety medications are part of their daily medication regiment; theycan and should continue taking that medication. 2. All Other Procedure Patients: The patient was instructed that if they take daily pain or anti-anxiety medications, they can and should continue taking on the day of the procedure. Does patient have history of any diagnosed bleeding disorders: No Implant: Patient has pacemaker/defibrillator: No WHAT TO EXPECT DAY OF PROCEDURE - Patient will arrive at entrance and be screened (temp and symptoms) - Patient will be given a mask; They are required to wear the mask appropriately (covering nose andmouth) the entire time that they are in the [facility] (Including during the procedure). If for some reason they feel that they will have difficulty with this, their procedure will have to be postponed. - If patient is ambulatory, will proceed to waiting room unaccompanied. - If patient requires assistance (either with mobility or from a cognitive standpoint), caregiver can accompany them to the waiting room. They will need to be given the visitor code. - Nurse will meet patient in waiting room and ask Screening Questions - Patient's ???ride?? will wait outside of the hospital until the procedure is done. A reliable phone number will be left with the nurse and the ???ride?? will be contacted at the end of the procedure. They will come to the Main Entrance. Patient will be brought to the Main Entrance after the procedure. Prior to checking in at [employer], please be sure to empty your bladder. Patient confirmed understanding that if they do not follow the above instructions, their procedure is likely to be cancelled. @MES@ documented in this encounter Plan of Treatment Upcoming Encounters Date Type Department Care Team (Late st Contact Info) Description 02/12/2024 4:45 PM EST TH Visit (TeleHealth) Dermatology at [facility] [address] [place] [address] Marian Vieyra MD [facility] [address] [place] [address] documented as of this encounter Visit Diagnoses Not on filedocumented in this encounter Care Teams Addiction Nurse Relationship Specialty Start Date End Date Poppy Wright APRN [address] [place] [phone] PCP - General General Internal Medicine 05/24/19 documented as of this encounter
--- OUTSIDE RECORDS SUMMARY | 2024-01-09 01:48 | XMS_ITS | Encounter Summary ---
Author Organization [facility] [place] [address] Care Team Providers Care Insurance Verification Representative Name Role Phone Poppy Wright APRN Primary Care Provider [phone] Encounter Details Date Type Department Care Team (Late st Contact Info) Description 03/27/2020 Telephone [place] [address] Alyssia Garzon RN Social History Tobacco Use Types Packs/Day Years Used Date Smoking Tobacco: Never Smokeless Tobacco: Never Sex and Gender Information Value Date Recorded Sex Assigned at Not on file Gender Identity Not on file Sexual Orientation Not on file documented as of this encounter Miscellaneous Notes * Telephone Encounter - Alyssia Garzon RN - 03/27/2020 3:48 PM EST Incoming call from patient she states I am wondering if you could please go over the risk with meagain for my procedure and travel Nurse advises the patient after talking with Dr. Garg Patient can have increased pain for a few weeks after the procedure, also there is a chance of infection, hematoma can form and we want to make sure you are close by for re evaluation if that is needed patient states Ok that makes sense can you tell me how much this procedure costs ? Nurse advises she will have to transfer the call to [facility] and she can help with that. Patient agrees with this plan and call is transferred to Alicia Alvarado documented in this encounter Plan of Treatment Upcoming Encounters Date Type Department Care Team (Late st Contact Info) Description 02/12/2024 4:45 PM EST TH Visit (TeleHealth) Dermatology at [facility] [address] [place] [address] Marian Vieyra MD [facility] [address] [place] [address] documented as of this encounter Visit Diagnoses Not on filedocumented in this encounter Care Teams Insurance Verification Representative Relationship Specialty Start Date End Date Poppy Wright APRN [address] [place] [id number] PCP - General General Internal Medicine 05/24/19 documented as of this encounter
--- OUTSIDE RECORDS SUMMARY | 2024-01-09 01:48 | XMS_ITS | Encounter Summary ---
Author Organization [facility] [place] [address] Care Team Providers Care Library Media Specialist Name Role Phone Poppy Wright APRN Primary Care Provider [phone] Encounter Details Date Type Department Care Team (Late st Contact Info) Description 03/17/2020 Telephone [facility] [place] [address] Alicia Penn Social History Tobacco Use Types Packs/Day Years Used Date Smoking Tobacco: Never Smokeless Tobacco: Never Sex and Gender Information Value Date Recorded Sex Assigned at Not on file Gender Identity Not on file Sexual Orientation Not on file documented as of this encounter Miscellaneous Notes * Telephone Encounter - Alicia Penn - 03/17/2020 4:31 PM EST 03/17/2020 Spoke with Ms. Sears regarding her experience Friday, when her appointment was canceled upon arrival due to the provider being out sick. Ms. Sears expressed her frustrations with the appointment.I documented in this encounter Plan of Treatment Upcoming Encounters Date Type Department Care Team (Late st Contact Info) Description 02/12/2024 4:45 PM EST TH Visit (TeleHealth) Dermatology at [facility] [address] [place] [address] Marian Vieyra MD [facility] [address] [place] [address] documented as of this encounter Visit Diagnoses Not on filedocumented in this encounter Care Teams Library Media Specialist Relationship Specialty Start Date End Date Poppy Wright APRN [address] [place] [id number] PCP - General General Internal Medicine 05/24/19 documented as of this encounter
--- OUTSIDE RECORDS SUMMARY | 2024-01-09 01:48 | XMS_ITS | Encounter Summary ---
Author Organization [facility] [place] [address] Care Team Providers Care Straddle Truck Operator Name Role Phone Poppy Wright APRN Primary Care Provider [phone] Reason for Visit * Auth/Cert Specialty Diagnoses / Procedures Referred By Kalin garcia Referred To Contact Diagnoses Low back pain, non-specific Lumbar spondylosis Procedures PRO INJ, PARAVERTEBRAL FACET JT W/IMAGE GUID, LUMBAR/SACRAL, SINGLE LEVEL PRO INJ, PARAVERTEBRAL FACET JT, W/IMAGE GUID, LUMBAR/SACRAL, SECOND LEVEL INJECTION, FACET JOINT, W\FLUORO, LUMBAR, SINGLE (WRVU 1.52) INJECTION, FACET JOINT, W\FLUORO, LUMBAR, 2ND LEVEL (WRVU 1) Referral ID Status Reason Start Date Expiration Date Visits Re quested Visits Authorized [id number] 1 1 Encounter Details Date Type Department Care Team (Late st Contact Info) Description 03/13/2020 7:30 AM EST Ancillary Procedure [place] [address] Janette Love MD [facility] [place] [address] Pain Social History Tobacco Use Types Packs/Day Years [...] PM EST TH Visit (TeleHealth) Dermatology at [facility] [address] [place] [address] Marian Vieyra MD [facility] DR [address]AK[address] [place] [address] Pending Results Name Type Priority Associated Diagnoses Date /Time Film Library- Storage Only pain Clinic C-Arm Imaging Storage Only Routine Pain 03/10/2020 4:40 PM EST documented as of this encounter Visit Diagnoses Diagnosis Pain Generalized pain documented in this encounter Care Teams Straddle Truck Operator Relationship Specialty Start Date End Date Poppy Wright APRN [address] [place] [phone] PCP - General General Internal Medicine 05/24/19 documented as of this encounter
--- OUTSIDE RECORDS SUMMARY | 2024-01-09 01:48 | XMS_ITS | Encounter Summary ---
Author Organization [facility] [place] [address] Care Team Providers Care Shovel Loader Operator Name Role Phone Poppy Wright APRN Primary Care Provider [phone] Reason for Visit * Auth/Cert Specialty Diagnoses / Procedures Referred By Kalin garcia Referred To Contact Diagnoses 724.6 (ICD-9-CM) - M53.3 (ICD-10-CM) - Sacral pain 724.6 (ICD-9-CM) - M53.3 (ICD-10-CM) - Sacroiliac dysfunction Procedures PRO INJECTION, SACROILIAC JOINT INJECTION PROCEDURE, SACROILIAC JOINT (WRVU 1.48) Referral ID Status Reason Start Date Expiration Date Visits Re quested Visits Authorized [id number] 1 1 Encounter Details Date Type Department Care Team (Late st Contact Info) Description 01/27/2020 2:00 PM EDT Ancillary [place] [address] Carlo Fernandes MD [facility] PHYSICAL [place] [address] Pain Social History Tobacco Use Types Packs/Day [...] PM EST TH Visit (TeleHealth) Dermatology at [address] [place] [address] Marian Vieyra MD [facility] [address] [place] [address] documented as of this encounter Procedures Procedure Name Priority Date/Time Associated Diagnosis Comments FILM LIBRARY STORAGE ONLY PAIN CLINIC C ARM Routine 01/27/2020 3:21 PM EDT Pain documented in this encounter Results * Film Library- Storage Only pain Clinic C-Arm (01/27/2020 3:21 PM EDT) Narrative [facility] 01/27/2020 3:21 PM EDT See PACS for result report. Carlo Fernandes MD [facility] FILM LIBRARY ORD ERABLES Performing Organization Address City/State/[facility] Co de Phone Number [place], [place] documented in this encounter Visit Diagnoses Diagnosis Pain Generalized pain documented in this encounter Care Teams Shovel Loader Operator Relationship Specialty Start Date End Date Poppy Wright APRN [address] [place] [address] PCP - General General Internal Medicine 05/24/19 documented as of this encounter
--- OUTSIDE RECORDS SUMMARY | 2024-01-09 01:48 | XMS_ITS | Encounter Summary ---
[place] [address] Care Team Providers Care External Auditor Name Role Phone Poppy Wright HUBER Primary Care Provider [phone] Reason for Referral * Diagnostic Test (Routine) - Closed Specialty Diagnoses / Procedures Referred By Kalin t Referred To Contact Radiology Diagnoses Sacral pain Low back pain, non-specific Sacroiliac dysfunction Procedures MRI Lumbar Spine wo Contrast (Generic) [facility] [place] [address] [facility] [place] [address] Referral ID Status Reason Start Date Expiration Date V isits Requested Visits Authorized [id number] Closed Specialty Service Requested 10/29/2019 04/26/2020 1 1 Reason for Visit * Reason Onset Date Comments Other 10/29/2019 Encounter Details Date Type Department Care Team (Late st Contact Info) Description 10/29/2019 Telephone [place] [address] Rodolfo Chaney RN Other Social History Tobacco Use Types Packs/Day Years Used Date Smoking Tobacco: Never Smokeless Tobacco: Never Sex and Gender Information Value Date Recorded Sex Assigned at Not on file Gender Identity Not on file Sexual Orientation Not on file documented as of this encounter Miscellaneous Notes * Telephone Encounter - Rodolfo Chaney RN - 10/29/2019 8:48 AM EDT Received call from patient reporting she came in for a CT guided steroid injection on 10/26/2019, itwas not done as they told her there was no area to inject, she is now asking if Dr. Fernandes can let her know what next step would be, also asking if the post injection f/u should be cancelled. Above discussed with Dr. Fernandes, next step would be SI joint injection or she can follow up as currently scheduled to discuss plan, telehealth visit is fine if she prefers. Patient was contacted and informed, she does not want to pursue another injection, she questions obtaining an MRI prior to f/u with Dr. Fernandes. This was discussed with Dr. Fernandes and he authorized lumbar MRI without contrast and f/u visit to review. Patient was contacted and informed, her called was passed to schedulers to book appointments. documented in this encounter Plan of Treatment Upcoming Encounters Date Type Department Care Team (Late st Contact Info) Description 02/12/2024 4:45 PM EST TH Visit (TeleHealth) Dermatology at [address] [address] Marian Vieyra MD [facility] [address] [address] documented as of this encounter Results * MRI Lumbar Spine wo Contrast (Generic) (11/02/2019 8:32 PM EDT) Anatomical Region Laterality Modality L-spine Magnetic Resonan ce Impressions 11/03/2019 8:57 AM EDT Mild degenerative changes with no significant spinal canal stenosis. Mild bilateral facet arthropathy and mild bilateral neural foraminal stenosis at L5-S1. Comment: The following findings are so common in people without low back pain that while we report their presence, they must be interpreted with caution and in context of the clinical situation (Reference- Jose Martinvik Et Al, Spine 2001). Findings: (Prevalence in patients without low back pain), disc degeneration (decreased T2 signal, height loss, bulge) (91%), disc T2-signal loss (83%), disc height loss (56%), disc bulge (64%), disc protrusion (32%), annular fissure (38%). Thank you for letting us participate in the care of this patient. For questions regarding this report, please contact the number below. ? Narrative 11/03/2019 8:57 AM EDT EXAMINATION: MRI LUMBAR SPINE WO CONTRAST (GENERIC) CLINICAL HISTORY: Lumbar radiculopathy, > 6 wks. low back/sacral pain, bilateral shooting leg pain. TECHNIQUE: MRI of the lumbar spine performed without intravenous contrast administration. COMPARISON: Lumbar spine x-rays 05/24/[address] scan 10/26/2019. FINDINGS: The vertebral bodies are maintained in [...] and signal and terminates appropriately at L1-2. T12-L1: No significant spinal canal or foraminal stenosis. L1-L2: No significant spinal canal or foraminal stenosis. L2-L3: No significant spinal canal or foraminal stenosis. L3-L4: No significant spinal canal or foraminal stenosis. L4-L5: Minimal disc bulge without significant spinal canal or foraminal stenosis. There is a right foraminal annular fissure. L5-S1: Mild disc bulge confined to the ventral epidural fat. No significant spinal canal stenosis. Mild bilateral facet arthropathy left greater than right with mild bilateral neural foraminal stenosis. Procedure Note Chito Clements MD - 11/03/2019 EXAMINATION: MRI LUMBAR SPINE WO CONTRAST (GENERIC) CLINICAL HISTORY: Lumbar radiculopathy, > 6 wks. low back/sacral pain,bilateral shooting leg pain. TECHNIQUE: MRI of the lumbar spine performed without intravenous contrastadministration. COMPARISON: Lumbar spine x-rays 05/24/[address] scan10/26/2019. FINDINGS: The vertebral bodies are maintained in height and there is no subluxation.There is a minimal convex left curvature of the lumbar spine centered at L2-3. Straightening of usual lumbar lordosis. Incidental rudimentary disc atS1-2. There are degenerative changes with mild loss of disc height posteriorlyat L5-S1 with an associated annular fissure at this location. No marrowsignal edema. The conus medullaris is normal in size and signal and terminates appropriately at L1-2. T12-L1: No significant spinal canal or foraminal stenosis. L1-L2: No significant spinal canal or foraminal stenosis. L2-L3: No significant spinal canal or foraminal stenosis. L3-L4: No significant spinal canal or foraminal stenosis. L4-L5: Minimal disc bulge without significant spinal canal or foraminal stenosis. There is a right foraminal annular fissure. L5-S1: Mild disc bulge confined to the ventral epidural fat. Nosignificant spinal canal stenosis. Mild bilateral facet arthropathy left greater thanright with mild bilateral neural foraminal stenosis. IMPRESSION Mild degenerative changes with no significant spinal canal stenosis.Mild bilateral facet arthropathy and mild bilateral neural foraminal stenosisat L5-S1. Comment: The following findings are so common in people without low backpain that while we report their presence, they must be interpreted with cautionand in context of the clinical situation (Reference- Gilbertok Et Al, [id number]). Findings: (Prevalence in patients without low back pain), discdegeneration (decreased T2 signal, height loss, bulge) (91%), disc T2-signal loss(83%), disc height loss (56%), disc bulge (64%), disc protrusion (32%), annularfissure (38%). Thank you for letting us participate in the care of this patient. Forquestions regarding this report, please contact the number below. Electronically signed by: Chito Clements [facility] ([phone]),at 11/03/2019 8:57 AM Carlo Fernandes MD IMG MRI ORDERABLES documented in this encounter Visit Diagnoses Diagnosis Sacral pain Disorders of sacrum Low back pain, non-specific Sacroiliac dysfunction Disorders of sacrum Sacral pain Disorders of sacrum Low back pain, non-specific Sacroiliac dysfunction Disorders of sacrum documented in this encounter Care Teams External Auditor Relationship Specialty Start Date End Date Poppy Wright APRN [address] [address] PCP - General General Internal Medicine 05/24/19 documented as of this encounter
--- OUTSIDE RECORDS SUMMARY | 2024-01-09 01:48 | XMS_ITS | Encounter Summary ---
Author Organization Formerly [facility] [place] [address] Care Team Providers Care Putty Remover Name Role Phone Poppy Wright HUBER Primary Care Provider [phone] Reason for Visit * Diagnostic Test (Routine) - Closed Specialty Diagnoses / Procedures Referred By Kalin t Referred To Contact Radiology Diagnoses Sacral pain Low back pain, non-specific Procedures CT Lumbar Spine wo Contrast (Generic) CT Facet Joint Injection Lumbosacral Spine Single Level Carlo Fernandes MD [facility] [place] [address] [facility] [place] [address] Referral ID Status Reason Start Date Expiration Date V isits Requested Visits Authorized [id number] Closed Specialty Service Requested 10/26/2019 04/24/2020 1 1 Encounter Details Date Type Department Care Team (Latest Contact Info) Description 10/26/2019 9:59 AM EDT - 10/26/2019 11:59 PM EDT Hospital [place] [address] Carlo Fernandes MD [facility] [place] [address] Sacral pain; Low back pain, non-specific Discharge Disposition: Home Social History Tobacco Use [...] mg Tablet 1 tablet as needed. 10/24/2016 Tri-Sprintec, 28, 0.18/0.215/0.25 mg-35 mcg (28) Tablet TAKE 1 TABLET BY MOUTH ONCE DAILY DIRECTED 03/30/2019 11/09/2023 acetaminophen (Tylenol) 325 mg Tablet Take 650 mg by mouth every 6 hours as needed for Pain. 11/10/2023 ibuprofen (Advil;Motrin) 200 mg Tablet Take 800 mg by mouth as needed for Pain. 11/09/2023 cholecalciferol, Vitamin D3, 50 mcg (2,000 unit) Tablet Take by mouth. 01/24/2022 documented as of this encounter Plan of Treatment Upcoming Encounters Date Type Department Care Team (Late st Contact Info) Description 02/12/2024 4:45 PM EST TH Visit (TeleHealth) Dermatology at [address] [phone] Marian Vieyra MD [facility] DR [place] [address] documented as of this encounter Procedures Procedure Name Priority Date/Time Associated Diagnosis Comments CT LUMBAR SPINE WWO CONTRAST Routine 10/26/2019 11:26 AM EDT Sacral pain Low back pain, non-specific documented in this encounter Results * CT Lumbar Spine wo Contrast (Generic) (10/26/2019 11:26 AM EDT) Anatomical Region Laterality Modality L-spine Computed Tomogra phy Impressions 10/26/2019 1:27 PM EDT 1. 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 2. ??Central disc extrusion at the L5-S1 level causing at least mild spinal canal narrowing. 3. ??No intervention performed, given no target. I have personally reviewed the image(s) and the resident's interpretation and agree with the findings, Ankit Carballo at 10/26/2019 1:27 PM Thank you for letting us participate in the care of this patient. For questions regarding this report, please contact the number below. ? Narrative 10/26/2019 1:27 PM EDT EXAMINATION: CT LUMBAR SPINE WO CONTRAST (GENERIC) CLINICAL HISTORY: inject false joint area/pseudoarthroses bilat ??between transverse processes of L5 and sacrum ??pt has known transitional anatomy at lumbo sacral junction pain in sacrum & bilat parasacral regins: R slightly >L; radiates into R posteror thigh TECHNIQUE: CT lumbar spine performed without intravenous contrast administration. COMPARISON: Lumbar spine radiographs 05/24/2019 FINDINGS: As noted on prior radiograph, there is transitional lumbar vertebral anatomy. Primitive ribs can be seen as what was thought to be the T12 level on prior exam. However, what was previously called as a sacralized L5 appears to be a normal S1 vertebral body with the above vertebral body being a normal L5 vertebral body. No pseudoarthrosis or sacralization is present. Given this, the previously noted primitive ribs most likely correspond with the L1 vertebral body. Lower lumbar spine alignment is normal. No vertebral body height loss or fracture. No L3-S1 neuroforaminal narrowing. A central disc extrusion is present at the L5-S1 level causing at least mild spinal canal narrowing. Visualized intra-abdominal and retroperitoneal soft tissues are unremarkable. Procedure Note Ankit Carballo MD - 10/26/2019 EXAMINATION: CT LUMBAR SPINE WO CONTRAST (GENERIC) CLINICAL HISTORY: inject false joint area/pseudoarthroses bilat between transverse processes of L5 and sacrum pt has known transitional anatomyat lumbo sacral junction pain in sacrum & bilat parasacral regins: R slightly >L; radiates into R posteror thigh TECHNIQUE: CT lumbar spine performed without intravenous contrast administration. COMPARISON: Lumbar spine radiographs 05/24/2019 FINDINGS: As noted on prior radiograph, there is transitional lumbar vertebralanatomy. Primitive ribs can be seen as what was thought to be the T12 level onprior exam. However, what was previously called as a sacralized L5 appears to steve normal S1 vertebral body with the above vertebral body being a normal L5 vertebral body. No pseudoarthrosis or sacralization is present. Giventhis, the previously noted primitive ribs most likely correspond with the B4bpfpsiwvo body. Lower lumbar spine alignment is normal. No vertebral body height loss or fracture. No L3-S1 neuroforaminal narrowing. A central disc extrusion is present at the L5-S1 level causing at leastmild spinal canal narrowing. Visualized intra-abdominal and retroperitoneal soft tissues areunremarkable. IMPRESSION 1. 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 2. Central disc extrusion at the L5-S1 level causing at least mild spinalcanal narrowing. 3. No intervention performed, given no target. I have personally reviewed the image(s) and the resident's interpretationand agree with the findings, Ankit Carballo at 10/26/2019 1:27 PM Thank you for letting us participate in the care of this patient. Forquestions regarding this report, please contact the number below. Carlo Fernandes MD IMG CT ORDERABLES documented in this encounter Visit Diagnoses Diagnosis Sacral pain Disorders of sacrum Low back pain, non-specific documented in this encounter Care Teams Putty Remover Relationship Specialty Start Date End Date Poppy Wright APRN [address] [place] [address] PCP - General General Internal Medicine 05/24/19 documented as of this encounter
--- OUTSIDE RECORDS SUMMARY | 2024-01-09 01:48 | XMS_ITS | Encounter Summary ---
Author Organization [facility] [place] [address] Care Team Providers Care Nuclear Medicine Medical Director Name Role Phone Poppy Wright APRN Primary Care Provider [phone] Reason for Visit * Auth/Cert Specialty Diagnoses [...] Expiration Date Visits Re quested Visits Authorized [id number] 1 1 Encounter Details Date Type Department Care Team (Late st Contact Info) Description 03/20/2020 2:20 PM EST - 03/20/2020 3:00 PM EST [place] [phone] Radha Garg MD [facility] [place] [address] INJECTION, FACET JOINT, W\FLUORO, LUMBAR, SINGLE (WRVU 1.52) Social History Tobacco Use Types Packs/Day Years Used Date Smoking Tobacco: Never Smokeless Tobacco: Never Sex and Gender Information Value Date Recorded Sex Assigned at Not on file Gender Identity Not on file Sexual Orientation Not on file documented as of this encounter Last Filed Vital Signs Vital Sign Reading Time Taken Comments Blood Pressure 169/94 03/20/2020 2:50 PM EST Pulse - - Temperature - - Respiratory Rate 16 03/20/2020 1:50 PM EST Oxygen Saturation 100% 03/20/2020 2:50 PM EST Inhaled Oxygen Concentration - - Weight 70.8 kg (156 lb) 03/20/2020 1:50 PM EST Height 167.6 cm (5' 6) 03/20/2020 1:50 PM EST Body Mass Index 25.18 03/20/2020 1:50 PM EST documented in this encounter Discharge Instructions * Discharge Instructions* Tiana Ahumada RN - 03/20/2020 2:58 PM EST Pain Management Center Discharge Instructions: You were seen today by Surgeon(s): Radha Garg MD Truong, Quyen V, MD The following was performed: Procedure(s) (LRB): INJECTION, FACET JOINT, W\FLUORO, LUMBAR, SINGLE (WRVU 1.52) (Bilateral) INJECTION, FACET JOINT, W\FLUORO, LUMBAR, 2ND LEVEL (WRVU 1) (Bilateral) It is normal that the injection site will be sore for up to 48 hours. [x] You may also experience mild stiffness in the joint near the injection site. You may resume your normal activities: today. You may shower today. DO NOT tub bathe, use whirlpools, hot tubs or pool therapy for 2 days. RemoveBand-Aid(s) later today/tomorrow. Do not drive until tomorrow. Use caution walking/climbing stairs as you may be unsteady on your feet. You may use your usual medications, including pain medications, as directed, unless otherwise instructed. You may use an ice pack as needed for the first 24 hours, on for 20 minutes then off for 20 minutes. Do not apply heat today. Attempt to empty your bladder 4-6 hours after your procedure. You received the following medications: Medications Given During Procedure Date/Time Order Dose Route Action 03/20/2020 2197 BUpivacaine (pf) (Marcaine) (5 mg/mL) 0.5% injection 3 mL Epidural Given 03/20/2020 5806 iohexoL (Omnipaque) (240 mg/mL) injection solution 2 mL Epidural Given During regular business hours, please phone the Pain Management Center at with any questions or if the following or other troubling symptoms develop: 1) Prolonged dizziness or weakness (more than 1 day). 2) Localized swelling, redness or drainage at the injection site(s). 3) Temperature of 101 degrees that lasts for more than 4 hours. After 5 PM or on weekends, call and ask for Pain Clinic provider on-call. If you are unable to reach the Pain Management Center and have a complication, please call your Primary Care Provider or proceed to your local emergency department. Tiana Ahumada RN Special instructions Pain Management Center Post -Procedure Pain Log Patient: Parisa Sears [id number] It is important for you to keep track of your pain after your procedure that took place 02/10/2020. This information will help your Provider to determine how to help reduce your pain. Today you had a procedure for pain in your lower back Your pain level before the procedure in this area was 5 /10. Your pain level immediately after your procedure was 2 /10. Time Pain Score # Comments % of pain relief 1 hour 4pm 2 hours 5pm 3 hours 6pm 4 hours 7pm Please call the nurse in the Pain Management Center a day or two after your procedure and report the information above. She will assess your response to the procedure, and will recommend appropriate follow-up. documented in this encounter Medications at Time [...] mouth. 01/24/2022 documented as of this encounter H&P Notes * Shayna Alva MD - 03/20/2020 2:22 PM EST Patient Name: Parisa Sears Patient Age: 24 y.o. Birthdate: 1995 Admit date: 03/20/2020 Attending Physician: Radha Garg MD PREPROCEDURE HISTORY AND PHYSICAL Date of Visit: March 20, 2020 Chief Complaint: Low back pain HPI: Subjective Parisa Sears is a 24 y.o. female who presents today for Procedure: Bilateral lumbar medial branch blocks L3, L4 and L5-DR injections. Referred by Carlo Fernandes . The patient denies any recent NSAID or anticoagulation. The patient denies any allergy to local anesthetics, contrast dye, or steroids. The history is obtained from the patient, and I have reviewed medical records provided by the referring physician and located in the electronic medical record to fill in gaps in the patient's recollection of events, treatments and outcomes. LOCATION: across the lower back. PAIN LEVEL AT REST 5/10 PAST MEDICAL HISTORY: No past medical history on file. There are no medical history contraindications to this procedure. PAST SURGICAL HISTORY: No past surgical history on file. There are no medical history contraindications to this procedure. ALLERGIES: Coffee, Raspberry (rubus idaeus), and Cat dander There are no allergic contraindications to this procedure. MEDICATIONS: No current facility-administered medications on file prior to encounter. Current Outpatient Medications on File Prior to Encounter Medication Sig Dispense Refill ??? cetirizine (ZyrTEC) 10 mg Tablet 1 tablet as needed. ??? Tri-Sprintec, 28, 0.18/0.215/0.25 mg-35 mcg (28) Tablet TAKE 1 TABLET BY MOUTH ONCE DAILY DIRECTED ??? acetaminophen (Tylenol) 325 mg Tablet Take 650 mg by mouth every 6 hours as needed for Pain. ??? ibuprofen (Advil;Motrin) 200 mg Tablet Take 800 mg by mouth 2 times daily. ??? cholecalciferol, Vitamin D3, 50 mcg (2,000 unit) Tablet Take by mouth. There are no allergic contraindications to this procedure. FAMILY HISTORY: No family history on file. SOCIAL HISTORY: Social History Socioeconomic History ??? Marital status: Single Spouse name: Not on file ??? Number of children: Not on file ??? Years of education: Not on file ??? Highest education level: Not on file Occupational History ??? Not on file Social Needs ??? Financial resource strain: Not on file ??? Food insecurity Worry: Not on file Inability: Not on file ??? Transportation needs Medical: Not on file Non-medical: Not on file Tobacco Use ??? Smoking status: Never Smoker ??? Smokeless tobacco: Never Used Substance and Sexual Activity ??? Alcohol use: Not on file ??? Drug use: Not on file ??? Sexual activity: Not on file Lifestyle ??? Physical activity Days per week: Not on file Minutes per session: Not on file ??? Stress: Not on file Relationships ??? Social connections Talks on phone: Not on file Gets together: Not on file Attends holiness service: Not on file Active member of club or organization: Not on file Attends meetings of clubs or organizations: Not on file Relationship status: Not on file ??? Intimate partner violence Fear of current or ex partner: Not on file Emotionally abused: Not on file Physically abused: Not on file Forced sexual activity: Not on file Other Topics Concern ??? Not on file Social History Narrative ??? Not on file There are no social history contraindications to this procedure. ROS: Pt denies recent fever, chills, infection, wounds, hospitalizations, ED visits, use of antibiotics.Otherwise, as described above. PHYSICAL EXAM: BP 139/41 Resp 16 Ht 167.6 cm (5' 6) Wt 70.8 kg (156 lb) SpO2 100% BMI 25.18 kg/m?? Physical Exam Constitutional: Pt oriented to person, place, and time. Appears well-developed and well-nourished. No distress. HENT: Normocephalic and atraumatic. Pulmonary/Chest: Effort normal. Neurological: Alert and oriented to person, place, and time. No cranial nerve deficit. Moves all extremities at least antigravity Skin: Skin is warm and dry. No rash noted. Not diaphoretic. Psychiatric: Normal mood and affect. MSK: positive Lugo test bilaterally There are no physical examination findings which would preclude this procedure. RADIOLOGIC DATA: Relevant imaging reviewed LABS/DX RESULTS: Last 3 wbc, hgb, hct plt No results for input(s): WBC, HGB, HCT, PLATELET in the last 7068 hours. Last 3 Lytes No results for input(s): NA, K, CL, CO2, BUN, CREATININE in the last 7068 hours. Last 3 LFTs No results for input(s): AST, ALT, ALKPHOS, BILITOT, BILIDIR in the last 7068 hours. Last 3 Coags No results for input(s): PT, INR, PTT in the last 168 hours. Last 3 HgbA1C No results for input(s): HA1C in the last 7068 hours. ASSESSMENT: Assessment 1. Lumbar spondylosis PLAN: Proceed with planned Bilateral lumbar medial branch blocks L3, L4 and L5-DR injections. Addressed all questions and concerns. Risks and benefits discussed with patient. No contraindications to the procedure at this time, will proceed. Shayna Alva MD Pain Management Fellow [address] [phone] / [facility] documented in this encounter Miscellaneous Notes * Op Note - Radha Garg MD - 03/19/2020 10:45 PM EST Pain Management Operative Note Patient Name: Parisa Sears : [id number] MR#: [id number] Case Date: 03/20/2020 Surgeon: Surgeon(s) and Role: * Radha Garg MD - Primary Shayna Alva MD - Fellow Present on Admission: ??? Lumbar spondylosis Postoperative diagnosis: same Procedure(s) (LRB): INJECTION, FACET JOINT, W\FLUORO, LUMBAR, SINGLE (WRVU 1.52) (Bilateral) INJECTION, FACET JOINT, W\FLUORO, LUMBAR, 2ND LEVEL (WRVU 1) (Bilateral) PROCEDURE NOTE LUMBAR MEDIAL BRANCH DIAGNOSTIC BLOCKS Date of Service: 02/10/2020 Patient: Parisa Sears Referring Physician: Carlo Fernandes Md [facility] [place] [address] Diagnosis: 1. Lumbar spondylosis Pre-procedure Note History and Exam: Patient demonstrates today moderate to severe non- radicular back pain without neurologic deficit aggravated by hyperextension Yes Back pain greater than leg pain Yes Patient today has tenderness over the suspected joint(s) Yes History of post-traumatic injury No Hypertrophic arthropathy Yes Back pain associated with suspected motion segment instability or Hypermobility or pseudoarthrosis No Pre-testing pain score (VAS): 5 Previous medial branch block testing?: No Today's Operative Note Parisa Sears was greeted by the nurse who verified the patients name and . Patient was then taken to the fluoroscopy suite. Ms. Sears was interviewed and the medical record was reviewed. There were no medical contraindications to performing the bilateral lumbar medial branch nerve blocks. I first had a talk with the patient and discussed the potential risks, benefits, side effects, and alternatives of this procedure including but not limited to increased pain from the procedure, no pain relief, nerve damage, infection, and bleeding. she comprehended my conversation and accepts the risks and understands the goals of this diagnostic procedure. All questions and concerns from the patient were addressed. After I was comfortable that the patient was fully informed about this procedure, the printed consent form was signed. Standard time-out procedure was performed Ms. Sears was placed in the prone position on the fluoroscopy table and automated blood pressure cuff and pulse oximeter were applied. The anatomic target points of the segmental medial branches ofbilaterally L3, L4 and L5- DRwere identified with fluoroscopy. Following thorough Chlorhexadine preparation of the skin and draping, a 25 gauge 3.5 spinal needle was placed under fluoroscopic guidance down on to the target point for each respective segmental medial branch.Position was confirmed in A/P, oblique and lateral views and 0.25 cc of Omnipaque-240 at each segmental nerve. At each level we injected 0.5ml of Bupivacaine 0.5%. (48 cc of Omnipaque was wasted) Ms. Gomezs vital signs were stable throughout the procedure and were as recorded in the docflowsheet by the nursing staff. Postoperatively, today patient demonstrates the following changes with hyperextension and with tenderness over the suspected joint(s). Provacative testing using the Lugo's facet loading test Right side Left side Directly before the block VAS (0-10) = 5 VAS (0-10) = 5 5 minutes after the block VAS (0-10) = 2 VAS (0-10) = 2 Percentage relief obtained with this diagnostic block 60% 60% Any improved physical functioning directly after the blocks? yes Next, she was asked to recordher percent pain relief and any changes in provocative maneuvers for the next 4 hours. She will report this information at the next business day to one of our nurses. Based on the medial branches blocked today, if the patient meets insurance criteria for radiofrequency, the treatment should result in the denervation of the bilaterally L4-L5 and L5-S1 facet joint nerves. We would expect to denervate a total of 4 facets during the radiofrequency ablation. Discharge plan:: She will call back with her 0-4 hour post-procedure pain scores. Next step, if patient meets criteria, would be either 2nd lumbar medial branch blocks or RFA at same levels (depending on insurance) Shayna Alva MD I was the attending physician supervising the fellow in the above care and I was present with the fellow for the entire procedure. Radha Garg MD [facility] [employer] Manager of Anesthesiology [facility] [employer] [facility] [address] [phone] / [facility] CC: [place] [address] * Op Note - Janette Love MD - 03/12/2020 7:27 PM EST PT not seen. * Op Note - Janette Love MD - 02/27/2020 4:59 PM EST Pain Management Operative Note n/a documented in this encounter Plan of Treatment Upcoming Encounters Date Type Department Care Team (Late st Contact Info) Description 02/12/2024 4:45 PM EST TH Visit (TeleHealth) Dermatology at [facility] [address] [place] [phone] Marian Vieyra MD [facility] DR [facility]AK[facility] [place] [address] documented as of this encounter Visit Diagnoses Not on filedocumented in this encounter Administered Medications Inactive Administered Medications - up to 3 most recent administrations Medication Order MAR Action Action Date Dose Rate Site BUpivacaine (pf) (Marcaine) (5 mg/mL) 0.5% injection ONCE PRN, Starting on Fri03/20/20 at 1437, Until Fri03/20/20 at 1701, Intra-Operative (Intra-Procedure), Routine Given 03/20/2020 2:37 PM EST 3 mLs iohexoL (Omnipaque) (240 mg/mL) injection solution ONCE PRN, Starting on Fri03/20/20 at 1437, Until Fri03/20/20 at 1701, Intra-Operative (Intra-Procedure), Routine Given 03/20/2020 2:37 PM EST 2 mLs documented in this encounter Active and Recently Administered Medications Times are shown in EST. PRN Medication Order 03/18/2020 03/19/2020 03/20/2020 BUpivacaine (pf) (Marcaine) (5 mg/mL) 0.5% injection (CANCELED) ONCE PRN, Starting on Fri03/20/20 at 1437, Until Fri03/20/20 at 1701, Intra-Operative (Intra-Procedure), Routine 143 (Given - Provid er: Shayna Loya MD) iohexoL (Omnipaque) (240 mg/mL) injection solution (CANCELED) ONCE PRN, Starting on Fri03/20/20 at 1437, Until Fri03/20/20 at 1701, Intra-Operative (Intra-Procedure), Routine 1436 (Given - Provid er: Shayna Loya MD) documented in this encounter Care Teams Nuclear Medicine Medical Director Relationship Specialty Start Date End Date Poppy Wright APRN [address] [place] [address] PCP - General General Internal Medicine 05/24/19 documented as of this encounter
--- OUTSIDE RECORDS SUMMARY | 2024-01-09 01:48 | XMS_ITS | Encounter Summary ---
[place] [address] Care Team Providers Care Student Records Coordinator Name Role Phone Poppy Wright APRN Primary Care Provider [phone] Encounter Details Date Type Department Care Team (Late st Contact Info) Description 03/16/2020 Telephone [facility] [place] [address] Alyssia Garzon, RN Social History Tobacco Use Types Packs/Day Years Used Date Smoking Tobacco: Never Smokeless Tobacco: Never Sex and Gender Information Value Date Recorded Sex Assigned at Not on file Gender Identity Not on file Sexual Orientation Not on file documented as of this encounter Miscellaneous Notes * Telephone Encounter - Alyssia Garzon RN - 03/16/2020 4:00 PM EST Parisa Sears :1995 Contact made with patient: I spoke to Ms. Sears at 4:00 PM regarding her upcoming Bilateral lumbar medial branch block scheduled on 03/20/2020 (date) scheduled at 2:20 (time) with Dr. Radha Garg MD. Medication and Allergy reconciliation: 1. Changes were made in the telephone encounter per patient; marked as reviewed, and closed. 2. Patient confirmed no IVP dye allergy. 3. Have you had any steroid injections anywhere in your body within the last two weeks? no Arrival time: The patient was instructed to arrive at 1:50 (30 minutes prior to procedure start time - 60 minutesprior for RF patients with a pacemaker) on 03/20/2020 (date of procedure). Antibiotics/Skin assessment/Illness symptoms/Pain level [...] 6. The patient confirmed that she is not still experiencing significant pain. (Significant pain is [...] history of any diagnosed bleeding disorders: No Anticoagulants: No NSAIDs: Does the patient take Aspirin/ASA? No Does the patient take an NSAID? Yes The patient confirmed that she discontinued taking ibuprofen (Motrin) on 03/19/2020 (date). Implant: Patient has pacemaker/defibrillator: No WHAT TO [...] their procedure will have to be postponed. Prior to checking in at [facility], please be sure to empty your bladder. Patient confirmed understanding that if they do not follow the above instructions, their procedure is likely to be cancelled. Alyssia Garzon RN documented in this encounter Plan of Treatment Upcoming Encounters Date Type Department Care Team (Late st Contact Info) Description 02/12/2024 4:45 PM EST TH Visit (TeleHealth) Dermatology at [facility] [address] [place] [address] Marian Vieyra MD [facility] [place] [address] documented as of this encounter Visit Diagnoses Not on filedocumented in this encounter Care Teams Student Records Coordinator Relationship Specialty Start Date End Date Poppy Wright APRN [address] [place] [address] PCP - General General Internal Medicine 05/24/19 documented as of this encounter
--- OUTSIDE RECORDS SUMMARY | 2024-01-09 01:48 | XMS_ITS | Encounter Summary ---
Author Organization [facility] [place] [address] Care Team Providers Care Junction Maker Name Role Phone Poppy Wright APRN Primary Care Provider [phone] Reason for Visit * Auth/Cert Specialty Diagnoses [...] Expiration Date Visits Re quested Visits Authorized [id number] 1 1 Encounter Details Date Type Department Care Team (Late st Contact Info) Description 02/28/2020 10:15 AM EST Ancillary [place] [address] Janette Love MD [facility] [place] [address] Pain Social History Tobacco Use Types Packs/Day [...] TH Visit (TeleHealth) Dermatology at [facility] [address] [place] [address] Marian Vieyra MD [facility] DR LAKSHMI [place] [address] Pending Results Name Type Priority Associated Diagnoses Date /Time Film Library- Storage Only pain Clinic C-Arm Imaging Storage Only Routine Pain 02/25/2020 4:48 PM EST documented as of this encounter Visit Diagnoses Diagnosis Pain Generalized pain documented in this encounter Care Teams Junction Maker Relationship Specialty Start Date End Date Poppy Wright APRN [address] [place] [address] PCP - General General Internal Medicine 05/24/19 documented as of this encounter
--- OUTSIDE RECORDS SUMMARY | 2024-01-09 01:48 | XMS_ITS | Encounter Summary ---
[place] [address] Care Team Providers Care Inventory Controller Name Role Phone Poppy Wright HUBER Primary Care Provider [phone] Reason for Referral * Consultation (Routine) - Closed Specialty Diagnoses / Procedures Referred By Kalin garcia Referred To Contact [facility] Diagnoses Low back pain, non-specific Lumbar spondylosis Carlo Fernandes MD [facility] [address] PHYSICAL [place] [address] [facility] [place] [address] Referral ID Status Reason Start Date Expiration Date Visits Requested Visits Authorized [id number] Closed Pain Interventional Procedure 02/10/2020 02/09/2021 3 3 Reason for Visit * Reason Comments Follow-up Encounter Details Date Type Department Care Team (Late st Contact Info) Description 02/10/2020 8:30 AM EST Office Visit [place] [address] Carlo Fernandes MD [facility] [place] [address] Low back pain, non-specific; Lumbar spondylosis; Sacral pain Social History Tobacco Use Types Packs/Day Years Used Date Smoking Tobacco: Never Smokeless Tobacco: Never Sex and Gender Information Value Date Recorded Sex Assigned at Not on file Gender Identity Not on file Sexual Orientation Not on file documented as of this encounter Last Filed Vital Signs Vital Sign Reading Time Taken Comments Blood Pressure 133/78 02/09/2020 8:38 AM EST Pulse 76 02/09/2020 8:38 AM EST Temperature 37.1 ??C (98.7 ??F) 02/09/2020 8:38 AM ES T Respiratory Rate - - Oxygen Saturation - - Inhaled Oxygen Concentration - - Weight 70.8 kg (156 lb) 02/09/2020 8:38 AM EST Height 167.6 cm (5' 6) 02/09/2020 8:38 AM EST Body Mass Index 25.18 02/09/2020 8:38 AM EST documented in this encounter Progress Notes * Carlo Fernandes MD - 02/10/2020 8:30 AM EST Chief Complaint Patient presents with ??? Follow-up Interim history: The patient returns for follow-up, status post bilateral sacroiliac joint steroid injections on 01/27/2020. She experienced good initial pain relief, but returned to baseline pain levels by the next day. Overall symptoms have been unchanged, compared to the pre-injection state. Patient describes pain in the central aspect of the lumbosacral junction with radiation to the sacrum. She is no longer experiencing thigh pain radiation. After hiking recently, the patient has experienced intermittent left anterior hip pain. Pain is essentially constant and is dull, throbbing or aching in quality. It is currently graded as4/10 in intensity. Exacerbating factors: Lying in supine, prolonged sitting and prolonged static standing. She reportsovernight awakening secondary to pain. Alleviating factors: Lying down, especially in side-lying position. The patient denies lower extremity pain radiation, numbness, tingling or focal lower extremity weakness. Patient Active Problem List Diagnosis Code ??? Low back pain, non-specific M54.5 ??? Sacroiliac dysfunction M53.3 Current Outpatient Medications on File Prior to [...] Review of Systems: As above. Objective: BP 133/78 Pulse 76 Temp 37.1 ??C (98.7 ??F) Ht 167.6 cm (5' 6) Wt 70.8 kg (156 lb) BMI 25.18 kg/m?? Well-developed and well-nourished female in no apparent distress. Alert and oriented x3. Affect is appropriate. Shabana's signs are absent. Gait: Normal. No difficulty performing bilateral heel or toe walking. Lumbar motion: Pain at the lumbosacral junction is reproduced with active lumbar extension from standing. Pelvic alignment/motion: There is mild anterior rotation of the pelvis. The interval between ribs and pelvis is markedly decreased bilaterally. Standing iliac crest palpation is level. Standing flexion test is negative bilaterally. Palpation: Tenderness is noted in the midline at the lumbosacral junction and over bilateral quadratus lumborum. There is mild sacral and bilateral sacroiliac tenderness. Pelvic/SI provocation: No pain with pelvic compression or shear. JEFFREY is positive on the left for ipsilateral sacroiliac pain. Motor: 5/5 throughout the lower extremities. Sensation: Intact to light touch throughout the lower extremities. Straight leg raising: Negative bilaterally in sitting and supine. Muscle stretch reflexes: 2+ bilaterally for quadriceps and Achilles tendon. Tone normal throughout the lower extremities. No ankle clonus. Assessment: Encounter Diagnoses Name Primary? Low back pain, non-specific ??? Lumbar spondylosis ??? Sacral pain The patient reports resolution of thigh pain radiation following bilateral sacroiliac joint steroidinjections. Her chronic low back pain symptoms are otherwise unchanged. Focal pain and tenderness are noted at the lumbosacral junction. The patient has known facet arthropathy at L5-S1. I suspect that the residual pain is facet-mediated. I recommend diagnostic lumbar medial branch blocks and radiofrequency ablation, as indicated by theresults of the blocks. The procedures have been described in detail to the patient. She would like to proceed. Plan: 1. Referral to Pain Management for diagnostic lumbar medial branch blocks and radiofrequency ablation, as indicated. Bilateral L3, L4 and L5-DR injections have been requested. 2. Follow-up with me 1 month post-RFA. Carlo Fernandes MD, MS 02/10/2020 * Jenniffer Zuniga LNA - 02/10/2020 8:30 AM EST Confirmed with pt that a detailed line by line medication and allergy review was performed by Jenniffer Zuniga as documented on 02/09/20 as part of the telephone Intake process. Confirmed with pt thatthere have been no medication/allergy additions or changes over the previous day. documented in this encounter Plan of Treatment Upcoming Encounters Date Type Department Care Team (Late st Contact Info) Description 02/12/2024 4:45 PM EST TH Visit (TeleHealth) Dermatology at [address] [place] [address] Marian Vieyra MD [facility] [address] [place] [address] Scheduled Referrals Name Type Priority Associated Diagnoses Orde r Schedule Referral to Pain and Spine Center (Internal only) Outpatient Referral Routine Low back pain, non-specific Lumbar spondylosis Ordered: 02/10/2020 documented as of this encounter Visit Diagnoses Diagnosis Low back pain, non-specific Lumbar spondylosis Lumbosacral spondylosis without myelopathy Sacral pain Disorders of sacrum documented in this encounter Care Teams Inventory Controller Relationship Specialty Start Date End Date Poppy Wright APRN [address] [place] [address] PCP - General General Internal Medicine 05/24/19 documented as of this encounter
--- OUTSIDE RECORDS SUMMARY | 2024-01-09 01:48 | XMS_ITS | Encounter Summary ---
[place] [address] Care Team Providers Care Sales Consultant Name Role Phone Poppy Wright APRN Primary Care Provider [phone] Encounter Details Date Type Department Care Team (Late st Contact Info) Description 03/09/2020 Telephone [place] [address] Dustin Blakely RN Social History Tobacco Use Types Packs/Day Years Used Date Smoking Tobacco: Never Smokeless Tobacco: Never Sex and Gender Information Value Date Recorded Sex Assigned at Not on file Gender Identity Not on file Sexual Orientation Not on file documented as of this encounter Miscellaneous Notes * Telephone Encounter - Dustin Blakely RN - 03/09/2020 9:30 AM EST Parisa Sears :1995 Contact made with patient: I spoke to Ms. Sears at 9:30 AM regarding her upcoming Bilateral lumbar medial branch block scheduled on 03/13/2020 (date) scheduled at 0730 (time) with Dr. Janette Love MD. Medication and Allergy reconciliation: 1. Changes were made in the telephone encounter per patient; marked as reviewed, and closed. 2. Patient confirmed no IVP dye allergy. 3. Have you had any steroid injections anywhere in your body within the last two weeks? no Arrival time: The patient was instructed to arrive at 0700 (30 minutes prior to procedure start time - 60 minutesprior for RF patients with a pacemaker) on 03/13/2020 (date of procedure). Antibiotics/Skin assessment/Illness symptoms/Pain level [...] that she discontinued taking ibuprofen (Motrin) on 03/12/2020 (date). Implant: Patient has pacemaker/defibrillator: No WHAT [...] be postponed. Prior to checking in at [facility], please be sure to empty your bladder. Patient confirmed understanding that if they do not follow the above instructions, their procedure is likely to be cancelled. RUDI Chan documented in this encounter Plan of Treatment Upcoming Encounters Date Type Department Care Team (Late st Contact Info) Description 02/12/2024 4:45 PM EST TH Visit (TeleHealth) Dermatology at [facility] [address] [place] [address] Marian Vieyra MD [facility] [address] [place] [address] documented as of this encounter Visit Diagnoses Not on filedocumented in this encounter Care Teams Sales Consultant Relationship Specialty Start Date End Date Poppy Wright APRN [address] [place] [address] PCP - General General Internal Medicine 05/24/19 documented as of this encounter
--- OUTSIDE RECORDS SUMMARY | 2024-01-09 01:48 | XMS_ITS | Encounter Summary ---
Author Organization [facility] [place] [address] Care Team Providers Care Triage Nurse Name Role Phone Poppy Wright HUBER Primary Care Provider [phone] Reason for Visit * Auth/Cert Specialty Diagnoses / Procedures Referred By Kalin garcia Referred To Contact Diagnoses Low back pain, non-specific, Lumbar spondylosis Procedures PRO DSTR PARAVERTEBRAL FCT JNT NRVES LUMBAR OR SACRAL SINGLE PRO DSTR PARAVERTEBRAL FCT JNT NRVES LUMBAR OR SACRAL ADDL RADIOFREQUENCY ABLATION,SINGLE FACET JOINT,LUMBAR (WRVU 3.78) RADIOFREQUENCY ABLATION,EACH ADD'L FACET JOINT,LUMBAR/SACRAL (WRVU 1.16) Referral ID Status Reason Start Date Expiration Date Visits Re quested Visits Authorized [id number] 1 1 Encounter Details Date Type Department Care Team ([facility] Contact Info) Description 03/30/2020 10:30 AM EST Ancillary [place] [address] Radha Garg MD [facility] [place] [address] Pain Social History Tobacco Use Types Packs/Day Years Used Date Smoking Tobacco: Never Smokeless Tobacco: Never Sex and Gender Information Value Date Recorded Sex Assigned at Not on file Gender Identity Not on file Sexual Orientation Not on file documented as of this encounter Plan of Treatment Upcoming Encounters Date Type Department Care Team (Late Contact Info) Description 02/12/2024 4:45 PM EST TH Visit (TeleHealth) Dermatology at [facility] [address] [place] [address] Marian Vieyra MD [facility] [address] [place] [address] documented as of this encounter Procedures Procedure Name Priority Date/Time Associated Diagnosis Comments FILM LIBRARY STORAGE ONLY PAIN CLINIC C ARM Routine 04/14/2020 4:48 PM EST Pain documented in this encounter Results * Film Library- Storage Only pain Clinic C-Arm (04/14/2020 4:48 PM EST) Narrative [facility] 04/14/2020 4:48 PM EST See PACS for result report. Radha Garg MD [facility] [place] [place] ERABLES [place], [place] documented in this encounter Visit Diagnoses Diagnosis Pain Generalized pain documented in this encounter Care Teams Triage Nurse Relationship Specialty Start Date End Date Poppy Wright APRN [address] [place] [address] PCP - General General Internal Medicine 05/24/19 documented as of this encounter
--- OUTSIDE RECORDS SUMMARY | 2024-01-09 01:48 | XMS_ITS | Encounter Summary ---
[place] [address] Care Team Providers Care Vp Client Services Name Role Phone Poppy Wright APRN Primary Care Provider [phone] Encounter Details Date Type Department Care Team (Late st Contact Info) Description 01/25/2020 Telephone [place] [address] Tiana Ahumada RN Social History Tobacco Use Types Packs/Day Years Used Date Smoking Tobacco: Never Smokeless Tobacco: Never Sex and Gender Information Value Date Recorded Sex Assigned at Not on file Gender Identity Not on file Sexual Orientation Not on file documented as of this encounter Miscellaneous Notes * Telephone Encounter - Tiana Ahumada RN - 01/25/2020 9:53 AM EDT Parisa Sears :1995 Contact made with patient: I spoke to Ms. Sears at 9:53 AM regarding her upcoming Bilateral SI joint injection scheduled on 01/27/2020 (date) scheduled at 1400 (time) with Dr. Carlo Fernandes MD. Medication and Allergy reconciliation: 1. Changes were made in the telephone encounter per patient; marked as reviewed, and closed. 2. Patient confirmed no IVP dye allergy. 3. Have you had any steroid injections anywhere in your body within the last two weeks? no Arrival time: The patient was instructed to arrive at 1330 (30 minutes prior to procedure start time - 60 minutesprior for RF patients with a pacemaker) on 01/27/2020 (date of procedure). Antibiotics/Skin assessment/Illness symptoms/Pain level [...] No Does the patient take an NSAID? No Diabetic instructions: Patient was advised to inform their PCP regarding safe fasting and the NPO requirements for their upcoming procedure and given the [facility] Management Center Nurse Triage Line . Implant: Patient has pacemaker/defibrillator: No WHAT TO [...] be postponed. Prior to checking in at [employer], please be sure to empty your bladder. Patient confirmed understanding that if they do not follow the above instructions, their procedure is likely to be cancelled. Tiana Ahumada, RN documented in this encounter Plan of Treatment Upcoming Encounters Date Type Department Care Team (Late st Contact Info) Description 02/12/2024 4:45 PM EST TH Visit (TeleHealth) Dermatology at [address] [address] Marian Vieyra MD [facility] DR [address] [place] [address] documented as of this encounter Visit Diagnoses Not on filedocumented in this encounter Care Teams Vp Client Services Relationship Specialty Start Date End Date Poppy Wright APRN [address] [place] [address] PCP - General General Internal Medicine 05/24/19 documented as of this encounter
--- OUTSIDE RECORDS SUMMARY | 2024-01-09 01:48 | XMS_ITS | Encounter Summary ---
Author Organization [facility] Address [facility] [place] [address] Care Team Providers Care Catalytic Converter Operator Helper Name Role Phone Poppy Wright APRN Primary Care Provider [phone] Encounter Details Date Type Department Care Team (Late st Contact Info) Description 03/17/2020 Telephone [place] [address] Milady Gonzalez MD [facility] [place] [address] Social History Tobacco Use Types Packs/Day Years Used Date Smoking Tobacco: Never Smokeless Tobacco: Never Sex and Gender Information Value Date Recorded Sex Assigned at Not on file Gender Identity Not on file Sexual Orientation Not on file documented as of this encounter Miscellaneous Notes * Telephone Encounter - Dustin Blakely RN - 03/17/2020 3:03 PM EST Opened in error documented in this encounter Plan of Treatment Upcoming Encounters Date Type Department Care Team (Late st Contact Info) Description 02/12/2024 4:45 PM EST TH Visit (TeleHealth) Dermatology at [facility] [address] [place] [address] Marian Vieyra MD [facility] [address] [address] documented as of this encounter Visit Diagnoses Not on filedocumented in this encounter Care Teams Catalytic Converter Operator Helper Relationship Specialty Start Date End Date Poppy Wright APRN [address] [place] [address] PCP - General General Internal Medicine 05/24/19 documented as of this encounter
--- OUTSIDE RECORDS SUMMARY | 2024-01-09 01:48 | XMS_ITS | Encounter Summary ---
Author Organization [facility] Address [facility] [place] [address] Care Team Providers Care Donor Services Coordinator Name Role Phone Poppy Wright APRN Primary Care Provider [phone] Encounter Details Date Type Department Care Team (Late st Contact Info) Description 03/17/2020 Telephone [facility] [place] [address] Milady Gonzalez MD [facility] [address] Social History Tobacco Use Types Packs/Day Years Used Date Smoking Tobacco: Never Smokeless Tobacco: Never Sex and Gender Information Value Date Recorded Sex Assigned at Not on file Gender Identity Not on file Sexual Orientation Not on file documented as of this encounter Miscellaneous Notes * Telephone Encounter - Dustin Blakely RN - 03/17/2020 3:03 PM EST Opened in error x2 documented in this encounter Plan of Treatment Upcoming Encounters Date Type Department Care Team (Late st Contact Info) Description 02/12/2024 4:45 PM EST TH Visit (TeleHealth) Dermatology at [facility] [address] [place] [address] Marian Vieyra MD [facility] [address]AK[address] [address] documented as of this encounter Visit Diagnoses Not on filedocumented in this encounter Care Teams Donor Services Coordinator Relationship Specialty Start Date End Date Poppy Wright APRN [address] [place] [address] PCP - General General Internal Medicine 05/24/19 documented as of this encounter
--- OUTSIDE RECORDS SUMMARY | 2024-01-09 01:48 | XMS_ITS | Encounter Summary ---
[place] [address] Care Team Providers Care Control Electrician Name Role Phone Poppy Wright APRN Primary Care Provider [phone] Encounter Details Date Type Department Care Team (Late st Contact Info) Description 01/04/2020 Telephone [facility] [place] [address] Tiana Ahumada RN Social History Tobacco Use Types Packs/Day Years Used Date Smoking Tobacco: Never Smokeless Tobacco: Never Sex and Gender Information Value Date Recorded Sex Assigned at Not on file Gender Identity Not on file Sexual Orientation Not on file documented as of this encounter Miscellaneous Notes * Telephone Encounter - Tiana Ahumada RN - 01/04/2020 11:31 AM EDT Parisa called and said that she did a 26 mile hike and now has blisters on the bottom of her feet. Parisa doesn't feel they are infected. I told her that I would forward the message to Dr Fernandes . I told her that we will get back to her when he tell us if we need to cancel her or not. Please advise documented in this encounter Plan of Treatment Upcoming Encounters Date Type Department Care Team (Late st Contact Info) Description 02/12/2024 4:45 PM EST TH Visit (TeleHealth) Dermatology at [facility] [address] [place] [address] Marian Vieyra MD [facility] [address] [place] [address] documented as of this encounter Visit Diagnoses Not on filedocumented in this encounter Care Teams Control Electrician Relationship Specialty Start Date End Date Poppy Wright APRN [address] [place] [address] PCP - General General Internal Medicine 05/24/19 documented as of this encounter
--- OUTSIDE RECORDS SUMMARY | 2024-01-09 01:48 | XMS_ITS | Encounter Summary ---
Author Organization [facility] Address [facility] [place] [address] Care Team Providers Care Junior Project Manager Name Role Phone Poppy Wright HUBER Primary Care Provider [phone] Reason for Referral * Consultation (Routine) - Closed Specialty Diagnoses / Procedures Referred By Kalin garcia Referred To Contact [facility] Diagnoses Sacral pain Sacroiliac dysfunction Carlo Fernandes MD [facility] [place] [address] Carlo Fernandes MD [facility] [place] [address] Referral ID Status Reason Start Date Expiration Date Visits Requested Visits Authorized [id number] Closed Pain Interventional Procedure 11/16/2019 11/15/2020 3 3 Reason for Visit * Reason Comments Back Pain lower back Right Leg Pain Left Leg Pain Encounter Details Date Type Department Care Team (Late st Contact Info) Description 11/16/2019 9:30 AM EDT Office Visit [place] [address] Carlo Fernandes MD [facility] [place] [address] Sacral pain; Sacroiliac dysfunction Social History Tobacco Use Types Packs/Day Years [...] - - Weight 70.8 kg (156 lb) 11/12/2019 9:15 AM EDT Height 167.6 cm (5' 6) 11/12/2019 9:15 AM EDT Body Mass Index 25.18 11/12/2019 9:15 AM EDT documented in this encounter Progress Notes * Carlo Fernandes MD - 11/16/2019 9:30 AM EDT Chief Complaint Patient presents with ??? Back Pain lower back ??? Right Leg Pain ??? Left Leg Pain Interim history: The patient returns for follow-up after lumbar MRI. She was last seen here on 10/14/2019. On 10/26/2019, she was seen by Interventional Radiology for CT-guided injection of pseudoarthroses between the transverse processes of what appeared to be a sacralized L5 vertebra and the sacrum. When the CT scanwas performed, however, the patient was found to have no sacralization of lumbar vertebrae and no pseudoarthroses. The confusion around sacralization of the lumbar vertebra appeared to be the result of the fact that the L1 vertebra has rudimentary ribs. At present, the patient reports central sacral pain with intermittent pain radiation into bilateralunilateral posterior thighs. Radiating pain is shooting in quality and occurs a few times daily, but is brief and self-limited. The current sacral pain is constant and aching in quality. It is graded as 4/10 in intensity. Pain is increased by hiking down slopes, prolonged sitting or standing and rapid bed transfers. Pain is decreased by lying in supine with hips and knees flexed and by heat. The patient denies focal lower extremity numbness, tingling, focal weakness or bowel/bladder dysfunction. No past medical history on file. Current [...] congestion Review of Systems: As above. Objective: Ht 167.6 cm (5' 6) Wt 70.8 kg (156 lb) BMI 25.18 kg/m?? The patient is a well-developed and well-nourished female in no apparent distress. Alert and oriented x3. Affect is appropriate. Shabana's signs are absent. Gait: Gait is normal. There is no difficulty performing heel or toe walking. Lumbar motion: Patient reports increased sacral pain with active flexion and extension. Pelvic alignment/motion: Pelvis is anteriorly rotated. The patient reports a decrease in sacral pain with verbal cues for posterior rotation of the pelvis to neutral. Standing iliac crest palpation is level. Standing flexion test is negative bilaterally. Palpation: Tenderness is noted over right quadratus lumborum and right sacroiliac joint. LE flexibility: Tightness is limited to right iliotibial band and rectus femoris. Pelvic/SI provocation: The patient reports sacral pain with pelvic shear. JEFFREY is positive on the right for increased sacral pain. The patient also reports increased sacral pain with bilateral Gaenslen's testing. Motor: Left hip abductors 4 to 4+/5. Lower extremity motor examination otherwise 5/5 throughout. Sensation: Intact to light touch throughout the lower extremities. Straight leg raising: Negative bilaterally from sitting and supine. Muscle stretch reflexes: 2+ bilaterally for quadriceps and Achilles tendon. Tone normal throughout the lower extremities. No ankle clonus. Imaging: Lumbar MRI, 11/02/2019: Mild levoscoliosis with apex at L2-L3. There is an annular fissure on the right at L4-L5. Disc space narrowing is noted at L5-S1. There is mild bilateral facet arthropathy at L5-S1, left greater than right. Intervertebral foraminal narrowing is mild bilaterally at L5-S1. Assessment: Encounter Diagnoses Name Primary? Sacral pain ??? Sacroiliac dysfunction Lumbar CT scan has helped to clarify the anatomy at the lumbosacral junction and now confirms that there is no transitional anatomy. Lumbar MRI demonstrates no evidence of focal disc herniation or significant intervertebral foraminal narrowing. Lumbar facet arthropathy is mild, but may be a contributing factor to the current symptoms. Physical examination demonstrates focal sacroiliac tenderness and increased sacral pain with provocative stress maneuvers across the pelvis. The patient and I reviewed her history which includes sacral pain since adolescence. I believe that the primary source of pain is the pelvis and, specifically, the sacroiliac joints and associated ligaments. I recommend diagnostic/therapeutic bilateral sacroiliac joint steroid injections. The procedure wasdescribed in detail to the patient. She would like to proceed. If the patient experiences no significant pain relief from the SI joint injections, consideration will be given to diagnostic/therapeutic lumbar medial branch blocks and radiofrequency ablation. Plan: 1. Bilateral sacroiliac joint steroid injections, as above. 2. Follow-up with me 3 weeks post-injection. Carlo Fernandes MD, MS 11/16/2019 * Jenniffer Zuniga LNA - 11/16/2019 9:30 AM EDT Confirmed with pt that a detailed line by line medication and allergy review was performed by Elsy Castellanos as documented on 11/12/19 as part of the telephone Intake process. Confirmed with pt that there have been no medication/allergy additions or changes over the previous 4 days. documented in this encounter Plan of Treatment Upcoming Encounters Date Type Department Care Team (Late st Contact Info) Description 02/12/2024 4:45 PM EST TH Visit (TeleHealth) Dermatology at [facility] [address] [place] [address] Marian Vieyra MD [facility] [address] [facility] [address] Scheduled Referrals Name Type Priority Associated Diagnoses Orde r Schedule Referral to Pain and Spine Center (Internal only) Outpatient Referral Routine Sacral pain Sacroiliac dysfunction Ordered: 11/16/2019 documented as of this encounter Visit Diagnoses Diagnosis Sacral pain Disorders of sacrum Sacroiliac dysfunction Disorders of sacrum documented in this encounter Care Teams Junior Project Manager Relationship Specialty Start Date End Date Poppy Wright APRN [address] [place] [id number] PCP - General General Internal Medicine 05/24/19 documented as of this encounter
--- OUTSIDE RECORDS SUMMARY | 2024-01-09 01:48 | XMS_ITS | Encounter Summary ---
Author Organization [facility] [place] [address] Care Team Providers Care Manager Bilingual Name Role Phone Poppy Wright APRN Primary Care Provider [phone] Reason for Visit * Auth/Cert Specialty Diagnoses / Procedures Referred By Kalin garcia Referred To Contact Diagnoses 724.6 (ICD-9-CM) - M53.3 (ICD-10-CM) - Sacral pain 724.6 (ICD-9-CM) - M53.3 (ICD-10-CM) - Sacroiliac dysfunction Procedures PRO INJECTION, SACROILIAC JOINT INJECTION PROCEDURE, SACROILIAC JOINT (WRVU 1.48) Referral ID Status Reason Start Date Expiration Date Visits Re quested Visits Authorized [id number] 1 1 Encounter Details Date Type Department Care Team (Latest Contact Info) Description 01/27/2020 1:28 PM EDT - 01/27/2020 2:40 PM EDT Hospital [place] [id number] Carlo Fernandes MD [facility] DR PHYSICAL MEDICINE [place] [address] Discharge Disposition: Home Social History Tobacco Use Types Packs/Day Years Used Date Smoking Tobacco: Never Smokeless Tobacco: Never Sex and Gender Information Value Date Recorded Sex Assigned at Not on file Gender Identity Not on file Sexual Orientation Not on file documented as of this encounter Last Filed Vital Signs Vital Sign Reading Time Taken Comments Blood Pressure 128/88 01/27/2020 2:20 PM EDT Pulse - - Temperature - - Respiratory Rate 16 01/27/2020 1:50 PM EDT Oxygen Saturation 100% 01/27/2020 2:25 PM EDT Inhaled Oxygen Concentration - - Weight 70.8 kg (156 lb) 01/27/2020 1:50 PM EDT Height 167.6 cm (5' 6) 01/27/2020 1:50 PM EDT Body Mass Index 25.18 01/27/2020 1:50 PM EDT documented in this encounter Discharge Instructions * Discharge Instructions* Dustin Blakely RN - 01/27/2020 2:29 PM EDT Pain Management Center Discharge Instructions: You were seen today by Surgeon(s): Carlo Fernandes MD The following was performed: Procedure(s) (LRB): INJECTION PROCEDURE, SACROILIAC JOINT (WRVU 1.48) (Bilateral) It is normal that the injection site will be sore for up to 48 hours. [x] You may also experience mild stiffness in the joint near the injection site. You may resume your normal activities: tomorrow. You may shower today. DO NOT tub [...] During Procedure Date/Time Order Dose Route Action 01/27/2020 1424 iohexoL (OMNIPAQUE) 240 mg/mL solution 3 mL Intra-articular Given 01/27/2020 1424 lidocaine (PF) (Xylocaine) 1% (10 mg/mL) injection 5 mL Intra- articular Given 01/27/2020 1429 methylPREDNISolone acetate (DEPO-Medrol) (40 mg/mL) injection 40 mg Intra-articularGiven 01/27/2020 1424 methylPREDNISolone acetate (DEPO-Medrol) (40 mg/mL) injection 40 mg Intra-articularGiven During regular business hours, please phone the [...] or proceed to your local emergency department. Dustin Blakely RN Special instructions documented in this encounter Medications at Time [...] as of this encounter H&P Notes * Carlo Fernandes MD - 01/26/2020 11:08 PM EDT Patient Name: Parisa Sears Patient Age: 24 y.o. Birthdate: 1995 Admit date: (Not on file) Attending Physician: Carlo Fernandes MD, MS PRE-PROCEDURE HISTORY AND PHYSICAL Date of Visit: January 27, 2020 Chief Complaint: Sacral pain Posterior thigh pain HPI: Parisa Sears is a 24 y.o. female who presents today for diagnostic/therapeutic bilateral sacroiliac joint steroid injections. Please see my office note of 11/16/2019 for complete details. Interim history is obtained from the patient, and I have reviewed medical records in the electronic medical record to fill in gaps in the patient's recollection of events, treatments and outcomes. LOCATION: Central sacrum with radiation to posterior thighs PAIN LEVEL AT REST 4/10 PAST MEDICAL HISTORY: No past medical history on file. PAST SURGICAL HISTORY: No past surgical history on file. ALLERGIES: Coffee, Raspberry (rubus idaeus), and Cat dander MEDICATIONS: No current facility-administered medications on file [...] mcg (2,000 unit) Tablet Take by mouth. FAMILY HISTORY: No family history on file. SOCIAL HISTORY: Social History Tobacco Use ??? Smoking status: Never Smoker ??? Smokeless tobacco: Never Used Substance Use Topics ??? Alcohol use: Not on file ??? Drug use: Not on file ROS: Denies fever, chills, shortness of breath, abdominal pain, leg weakness/numbness, bowel or bladder incontinence, balance issues PHYSICAL EXAM: BP 128/88 Resp 16 Ht 167.6 cm (5' 6) Wt 70.8 kg (156 lb) SpO2 100% BMI 25.18 kg/m?? Physical Exam Constitutional: Appearance: Normal appearance. She is normal weight. Pulmonary: Effort: Pulmonary effort is normal. Skin: General: Skin is warm and dry. Neurological: Mental Status: She is alert and oriented to person, place, and time. Psychiatric: Mood and Affect: Mood normal. Behavior: Behavior normal. ASSESSMENT: 724.6 (ICD-9-CM) - M53.3 (ICD-10-CM) - Sacral pain 724.6 (ICD-9-CM) - M53.3 (ICD-10-CM) - Sacroiliac dysfunction PLAN: Addressed all questions and concerns. Risks and benefits discussed with patient. No contraindications to the procedure at this time, will proceed to diagnostic/therapeutic sacroiliac joint steroid injections. * Carlo Fernandes MD - 12/13/2019 2:36 PM EDT Procedure rescheduled. Physical Exam Constitutional: Appearance: Normal appearance. She is normal weight. Cardiovascular: Pulses: Normal pulses. Skin: General: Skin is warm and dry. Neurological: Mental Status: She is alert and oriented to person, place, and time. Psychiatric: Mood and Affect: Mood normal. Behavior: Behavior normal. documented in this encounter Miscellaneous Notes * Op Note - Carlo Fernandes MD - 01/26/2020 11:24 PM EDT Pain Management Operative Note Patient Name: Parisa Sears : [id number] MR#: [id number] Case Date: 01/27/2020 Surgeon: Surgeon(s) and Role: * Carlo Fernandes MD, MS - Primary Present on Admission: ??? Low back pain, non-specific ??? Sacroiliac dysfunction Postoperative diagnosis: Same INTRA-ARTICULAR SI JOINT INJECTION Date of Service: 01/27/2020 Patient: Parisa Sears Provider: Carlo Fernandes MD, MS Parisa Sears has been referred to the Pain Management Center for bilateral intra-articular SIjoint injections. Ms. Sears was interviewed and the medical record reviewed. There were no medical, pharmacologic, radiographic or other structural contraindications to attempting fluoroscopically guided intra-articular SI joint injection. Risks and expected side effects as well as potential benefit of the procedure were reviewed with Ms. Sears, and her voiced concerns were addressed. The printed consent form was signed and witnessed. Standard time-out procedure was performed. Ms. Sears was placed in the prone position on the fluoroscopy table and automated blood pressure cuff and pulse oximeter applied. The skin entry point for approaching the bilateral sacroiliac jointwas identified under the most advantageous fluoroscopic view and marked. Following thorough Chlorhexidine preparation of the skin and draping and 1% lidocaine infiltration of the skin entry point andsubcutaneous tissues, a 22 gauge spinal needle was placed under fluoroscopic guidance into the bilateral sacroiliac joint. Intra-articular placement was confirmed by a clear arthrogram resulting fromthe injection of 0.25ml Omnipaque 240. 1 ml 1% Lidocaine and 40 mg Depo-Medrol was injected intra-articularly into each sacroiliac joint with an initial reproduction of a significant component of theusual pain. (49 cc of Omnipaque was wasted) Ms. Sears's vital signs were stable throughout the procedure and were as recorded in the docflowsheet by the nursing staff. If given, dosages of intravenous drugs for anxiolysis and analgesia were documented in MAR. Follow up plans and appointments were discussed with the Ms. Sears. Post procedure instruction was given as documented in nursing documentation and, having met discharge criteria, she was discharged from the Pain Management Center. COMMENTS: No complications. Post-injection pain level = 2/10 F/U with me in 2 weeks. Carlo Fernandes MD, MS CC: Self mail Procedure(s) (LRB): INJECTION PROCEDURE, SACROILIAC JOINT (WRVU 1.48) (Bilateral) * Op Note - Carlo Fernandes MD - 12/13/2019 2:42 PM EDT Procedure rescheduled. documented in this encounter Plan of Treatment Upcoming Encounters Date Type Department Care Team (Late st Contact Info) Description 02/12/2024 4:45 PM EST TH Visit (TeleHealth) Dermatology at [facility] [address] [place] [address] Marian Vieyra MD [facility] DR [facility]SH[facility] [place] [address] documented as of this encounter Visit Diagnoses Diagnosis Low back pain, non-specific Sacroiliac dysfunction Disorders of sacrum documented in this encounter Active and Recently Administered Medications Times are shown in EDT. PRN Medication Order 01/25/2020 01/26/2020 01/27/2020 iohexoL (OMNIPAQUE) 240 mg/mL solution (CANCELED) ONCE PRN, Starting on Victoria 01/27/20 at 1424, Until Victoria 01/27/20 at 1640, Intra-Operative (Intra-Procedure), Routine 1424 (Given - Provid er: Carlo Fernandes MD - Comment: Bilateral SIJ) lidocaine (PF) (Xylocaine) 1% (10 mg/mL) injection (CANCELED) ONCE PRN, Starting on Victoria 01/27/20 at 1424, Until Victoria 01/27/20 at 1640, Intra-Operative (Intra-Procedure), Routine 1424 (Given - Provid er: Carlo Fernandes MD - Comment: Bilateral SIJ) methylPREDNISolone acetate (DEPO-Medrol) (40 mg/mL) injection (CANCELED) ONCE PRN, Starting on Victoria 01/27/20 at 1424, Until Victoria 01/27/20 at 1640, Intra-Operative (Intra-Procedure), Routine 1424 (Given - Provid er: Carlo Fernandes MD - Comment: Left SIJ)1429 (Given - Provider: Carlo Fernandes MD - Comment: Right SIJ) documented in this encounter Care Teams Manager Bilingual Relationship Specialty Start Date End Date Poppy Wright APRN [address] [place] [address] PCP - General General Internal Medicine 05/24/19 documented as of this encounter
--- OUTSIDE RECORDS SUMMARY | 2024-01-09 01:48 | XMS_ITS | Encounter Summary ---
[place] [address] Care Team Providers Care Circular Shear Operator Name Role Phone Poppy Wright APRN Primary Care Provider [phone] Encounter Details Date Type Department Care Team (Late st Contact Info) Description 01/04/2020 Telephone [place] [address] Tiana Ahumada, RN Social History Tobacco Use Types Packs/Day Years Used Date Smoking Tobacco: Never Smokeless Tobacco: Never Sex and Gender Information Value Date Recorded Sex Assigned at Not on file Gender Identity Not on file Sexual Orientation Not on file documented as of this encounter Miscellaneous Notes * Telephone Encounter - Tiana Ahumada RN - 01/04/2020 1:01 PM EDT I called Parisa back to tell her that Dr Fernandes said that as long as there is no open, drainage or pus from the blisters we can proceed. I had to leave her a message. Parisa called me backand said that they are draining. I told her that we will have to reschedule and I transferred the call. documented in this encounter Plan of Treatment Upcoming Encounters Date Type Department Care Team (Late st Contact Info) Description 02/12/2024 4:45 PM EST TH Visit (TeleHealth) Dermatology at [facility] [address] [place] [address] Marian Vieyra MD [facility] [address] [facility] [place] [address] documented as of this encounter Visit Diagnoses Not on filedocumented in this encounter Care Teams Circular Shear Operator Relationship Specialty Start Date End Date Poppy Wright APRN [address] [place] [id number] PCP - General General Internal Medicine 05/24/19 documented as of this encounter
--- OUTSIDE RECORDS SUMMARY | 2024-01-09 01:48 | XMS_ITS | Encounter Summary ---
Author Organization [facility] [place] [address] Care Team Providers Care Thermal Engineer Name Role Phone Poppy Wright APRN Primary Care Provider Encounter Details Date Type Department Care Team (Late st Contact Info) Description 03/13/2020 Telephone [facility] [place] [address] Alyssia Garzon RN Social History Tobacco Use Types Packs/Day Years Used Date Smoking Tobacco: Never Smokeless Tobacco: Never Sex and Gender Information Value Date Recorded Sex Assigned at Not on file Gender Identity Not on file Sexual Orientation Not on file documented as of this encounter Miscellaneous Notes * Telephone Encounter - Alyssia Garzon RN - 03/13/2020 7:21 AM EST Patient arrived at [facility] for her procedure and was advised by the Nurse that she tried to reachher to let her Know that the Doctor is out sick today and we will need to reschedule. Patient was very upset and crying and states I just drove 2 hours to get here and this is the second time that I have been cancelled once I arrive [facility] medical office receptionist offered patient a gas card for her travels. Davis simmons was also advised that pain and spine scheduling team will call to reschedule. documented in this encounter Plan of Treatment Upcoming Encounters Date Type Department Care Team (Late st Contact Info) Description 02/12/2024 4:45 PM EST TH Visit (TeleHealth) Dermatology at [facility] [address] [place] [address] Marian Vieyra MD [facility] [address] [facility] [place] [address] documented as of this encounter Visit Diagnoses Not on filedocumented in this encounter Care Teams Thermal Engineer Relationship Specialty Start Date End Date Poppy Wright APRN [address] [place] [id number] PCP - General General Internal Medicine 05/24/19 documented as of this encounter
--- OUTSIDE RECORDS SUMMARY | 2024-01-09 01:48 | XMS_ITS | Encounter Summary ---
Author Organization [facility] [place] [address] Care Team Providers Care Bakery Team Member Name Role Phone Poppy Wright HUBER Primary Care Provider [phone] Reason for Visit * Auth/Cert Specialty Diagnoses [...] Expiration Date Visits Re quested Visits Authorized [id number] 1 1 Encounter Details Date Type Department Care Team (Late st Contact Info) Description 03/30/2020 10:30 AM EST - 03/30/2020 12:00 PM EST [place] [address] Radha Garg MD [facility] [place] [address] RADIOFREQUENCY ABLATION,SINGLE FACET JOINT,LUMBAR (WRVU 3.32) Social History Tobacco Use Types Packs/Day Years Used Date Smoking Tobacco: Never Smokeless Tobacco: Never Sex and Gender Information Value Date Recorded Sex Assigned at Not on file Gender Identity Not on file Sexual Orientation Not on file documented as of this encounter Last Filed Vital Signs Vital Sign Reading Time Taken Comments Blood Pressure 141/94 03/30/2020 12:00 PM EST Pulse - - Temperature - - Respiratory Rate 20 03/30/2020 12:00 PM EST Oxygen Saturation 100% 03/30/2020 12:00 PM EST Inhaled Oxygen Concentration - - Weight 72.6 kg (160 lb) 03/30/2020 10:28 AM EST Height 167.6 cm (5' 6) 03/30/2020 10:28 AM EST Body Mass Index 25.82 03/30/2020 10:28 AM EST documented in this encounter Discharge Instructions * Discharge Instructions* Cheryl Weinstein RN - 03/30/2020 12:29 PM EST Pain Management Center Discharge Instructions: You were seen today by Surgeon(s): Radha Garg MD Truong, Quyen V, MD The following was performed: Procedure(s) (LRB): RADIOFREQUENCY ABLATION,SINGLE FACET JOINT,LUMBAR (WRVU 3.78) (Bilateral) RADIOFREQUENCY ABLATION,EACH ADD'L FACET JOINT,LUMBAR/SACRAL (WRVU 1.16) (Bilateral) It is normal that the injection [...] 20 minutes. Do not apply heat today. You received medication through an intravenous line to lessen the anxiety/pain of your procedure. DO NOT operate heavy or dangerous equipment/tools, or sign important papers today. Attempt to empty your bladder 4-6 hours after your procedure. You received the following medications: Medications Given During Procedure Date/Time Order Dose Route Action 03/30/2020 1148 BUpivacaine (pf) (Marcaine) (5 mg/mL) 0.5% injection 2 mL Other Given 03/30/2020 1147 dexamethasone (PF) (Decadron) (10 mg/mL) injection 10 mg Intramuscular Given 03/30/2020 1147 lidocaine (pf) (Xylocaine) (10 mg/mL) 1% injection 6 mL Other Given 03/30/2020 1146 lidocaine (pf) (Xylocaine) (20 mg/mL) 2% injection 9 mL Other Given 03/30/2020 1211 midazolam (pf) (Versed) (1 mg/mL) injection 0.5 mg Intravenous Given 03/30/2020 1121 midazolam (pf) (Versed) (1 mg/mL) injection 0.5 mg Intravenous Given During regular business hours, please phone [...] or proceed to your local emergency department. Cheryl Weinstein RN Special instructions documented in this encounter [...] as of this encounter H&P Notes * Alva, Shayna V, MD - 03/30/2020 10:41 AM EST Patient Name: Parisa Sears Patient Age: 24 y.o. Birthdate: 1995 Admit date: 03/30/2020 Attending Physician: Radha Garg MD PREPROCEDURE HISTORY AND PHYSICAL Date of Visit: March 30, 2020 Chief Complaint: Low back pain HPI: Subjective Parisa Sears is a 24 y.o. female who presents today for Procedure: Bilateral lumbar medial branch RFA L3, L4 and L5-DR injections. Referred by No ref. provider found . The patient denies any recent NSAID or anticoagulation. The history is obtained from the patient, and I have reviewed medical records provided by the referring physician and located in the electronic medical record to fill in gaps in the patient's recollection of events, treatments and outcomes. LOCATION: across the lower back. PAIN LEVEL AT REST 3/10 PAST MEDICAL HISTORY: No past medical history [...] file Gets together: Not on file Attends jainism service: Not on file Active member of [...] antibiotics.Otherwise, as described above. PHYSICAL EXAM: BP 124/69 Resp 20 Ht 167.6 cm (5' 6) Wt 72.6 kg (160 lb) SpO2 100% BMI 25.82 kg/m?? Physical Exam Constitutional: Pt oriented to [...] WBC, HGB, HCT, PLATELET in the last 5723 hours. Last 3 Lytes No results for [...] Proceed with planned Bilateral lumbar medial branch RFA L3, L4 and L5-DR injections. Addressed all questions and concerns. Risks and benefits discussed with patient. No contraindications to the procedure at this time, will proceed. Shayna Alva MD Pain Management Fellow [address] [phone] / [facility] documented in this encounter Miscellaneous Notes * Op Note - Radha Garg MD - 03/30/2020 6:06 AM EST Pain Management Operative Note Patient Name: Parisa Sears : [id number] MR#: [id number] Case Date: 03/30/2020 Surgeon: Surgeon(s) and Role: * Radha Garg MD - Primary Shayna Alva MD - Fellow Present on Admission: ??? Lumbar spondylosis Lumbar spondylosis without myelopathy Postoperative diagnosis: same Procedure(s) (LRB): RADIOFREQUENCY ABLATION,SINGLE FACET JOINT,LUMBAR (WRVU 3.78) (Bilateral) RADIOFREQUENCY ABLATION,EACH ADD'L FACET JOINT,LUMBAR/SACRAL (WRVU 1.16) (Bilateral) LUMBAR/SACRAL MEDIAL BRANCH RADIOFREQUENCY Patient: Parisa Sears Provider: Shayna Alva MD Parisa Sears has been referred to [...] the duration of the local anesthetic effect. COMMENTS: none Ms. Sears was interviewed and the medical [...] without any evidence of distal myotomal stimulation. At each placement a continuous mode radiofrequency treatment was done at 80 degrees C for 90 secs and then rotated 180degrees and then repeated. Oncethe radiofrequency treatment was completed 0.3 cc of a 2 cc solution of Depomedrol (40 mg/cc) was injected at each site followed by 1 cc of 1 cc of 0.5% Bupivacaine. The needles were then removed without difficulty. This radiofrequency treatment should result in the denervation of the bilaterally L4-L5 and L5-S1. A total of 4 facets were expected to be denervated from today's treatment. Patient's neurological examination was unchanged postprocedure. Ms. Sears's vital signs were stable throughout the procedure and were as recorded in the docflowsheet by the nursing staff. If given, dosages of intravenous drugs for anxiolysis and analgesia were documented in the Medication Administration Record (MAR). Follow up plans and appointments were discussed with Parisa Sears. Post procedure instructionwas given as documented in the nursing documentation and having met discharge criteria, she was discharged from the Pain Management Center. COMMENTS: bilateral lumbar medial branch radiofrequency ablation (L3,L4,L5-DR) targeting L4-L5 and L5-S1 facet joints. Shayna Alva MD I was the attending physician supervising the fellow in the above care and I was present with the fellow for the entire procedure. Radha Garg MD Pain Management Center Marshmallow Runner of Anesthesiology [facility] [address] [phone] / [facility] CC: No referring provider defined for this encounter. documented in this encounter Plan of Treatment Upcoming Encounters Date Type Department Care Team (Late st Contact Info) Description 02/12/2024 4:45 PM EST TH Visit (TeleHealth) Dermatology at [facility] [address] [place] [address] Marian Vieyra MD [facility] [address] L[facility] [address] documented as of this encounter Visit Diagnoses Not on filedocumented in this encounter Administered Medications Inactive Administered Medications - up to 3 most recent administrations Medication Order MAR Action Action Date Dose Rate Site BUpivacaine (pf) (Marcaine) (5 mg/mL) 0.5% injection ONCE PRN, Starting on Victoria 03/30/20 at 1148, Until Victoria 03/30/20 at 1440, Intra-Operative (Intra-Procedure), Routine Given 03/30/2020 11:48 AM EST 2 mLs dexamethasone (PF) (Decadron) (10 mg/mL) injection ONCE PRN, Starting on Victoria 03/30/20 at 1147, Until Victoria 03/30/20 at 1440, Intra-Operative (Intra-Procedure), Routine Given 03/30/2020 11:47 AM EST 10 mg lidocaine (pf) (Xylocaine) (10 mg/mL) 1% injection ONCE PRN, Starting on Victoria 03/30/20 at 1147, Until Victoria 03/30/20 at 1440, Intra-Operative (Intra-Procedure), Routine Given 03/30/2020 11:47 AM EST 6 mLs lidocaine (pf) (Xylocaine) (20 mg/mL) 2% injection ONCE PRN, Starting on Victoria 03/30/20 at 1146, Until Victoria 03/30/20 at 1440, Intra-Operative (Intra-Procedure), Routine Given 03/30/2020 11:46 AM EST 9 mLs midazolam (pf) (Versed) (1 mg/mL) injection ONCE PRN, Starting on Victoria 03/30/20 at 1121, Until Victoria 03/30/20 at 1440, Intra-Operative (Intra-Procedure), Routine Given 03/30/2020 12:11 PM EST 0.5 mg Given 03/30/2020 11:21 AM EST 0.5 mg documented in this encounter Active and Recently Administered Medications Times are shown in EST. PRN Medication Order 03/28/2020 03/29/2020 03/30/2020 BUpivacaine (pf) (Marcaine) (5 mg/mL) 0.5% injection (CANCELED) ONCE PRN, Starting on Victoria 03/30/20 at 1148, Until Victoria 03/30/20 at 1440, Intra-Operative (Intra-Procedure), Routine 1148 (Given - Provid er: Shayna Loya MD - Comment: Bilateral lumbar RFA) dexamethasone (PF) (Decadron) (10 mg/mL) injection (CANCELED) ONCE PRN, Starting on Victoria 03/30/20 at 1147, Until Victoria 03/30/20 at 1440, Intra-Operative (Intra-Procedure), Routine 1147 (Given - Provid er: Shayna Loya MD - Comment: Bilateral lumbar RFA) lidocaine (pf) (Xylocaine) (10 mg/mL) 1% injection (CANCELED) ONCE PRN, Starting on Victoria 1220 at 1147, Until Victoria 1220 at 1440, Intra-Operative (Intra-Procedure), Routine 1147 (Given - Provid er: Radha Garg MD - Comment: Bilateral lumbar RFA) lidocaine (pf) (Xylocaine) (20 mg/mL) 2% injection (CANCELED) ONCE PRN, Starting on Victoria 03/30/20 at 1146, Until Victoria 03/30/20 at 1440, Intra-Operative (Intra-Procedure), Routine 1146 (Given - Provid er: Radha Garg MD - Comment: Bilateral lumbar RA) midazolam (pf) (Versed) (1 mg/mL) injection (CANCELED) ONCE PRN, Starting on Victoria 03/30/20 at 1121, Until Victoria 03/30/20 at 1440, Intra-Operative (Intra-Procedure), Routine 1121 (Given - Provid er: Cheryl Weinstein RN)1211 (Given - Provider: Shayna Loya MD) documented in this encounter Care Teams Bakery Team Member Relationship Specialty Start Date End Date Poppy Wright APRN [address] [place] [address] PCP - General General Internal Medicine 05/24/19 documented as of this encounter
--- OUTSIDE RECORDS SUMMARY | 2024-01-09 01:48 | XMS_ITS | Encounter Summary ---
Author Organization [facility] [place] [address] Care Team Providers Care Roll Tube Setter Name Role Phone Poppy Wright APRN Primary Care Provider [phone] Reason for Visit * Auth/Cert Specialty Diagnoses [...] Expiration Date Visits Re quested Visits Authorized [id number] 1 1 Encounter Details Date Type Department Care Team (Latest Contact Info) Description 03/20/2020 1:45 PM EST - 03/20/2020 3:00 PM [facility] [place] [address] Radha Garg MD [facility] [place] [address] Lumbar spondylosis Discharge Disposition: Home Social History Tobacco Use [...] Procedure Date/Time Order Dose Route Action 03/20/2020 1437 BUpivacaine (pf) (Marcaine) (5 mg/mL) 0.5% injection 3 mL Epidural Given 03/20/2020 1437 iohexoL (Omnipaque) (240 mg/mL) injection solution 2 [...] Post -Procedure Pain Log Patient: Parisa Sears [id number] It is important for you to keep [...] file Gets together: Not on file Attends lutheran service: Not on file Active member of [...] proceed. Shayna Alva MD Pain Management Fellow [address] [phone] / [facility] documented in this encounter Miscellaneous Notes * Op Note - Radha Garg MD - 03/19/2020 10:45 PM EST Pain Management Operative Note Patient Name: Parisa Sears : [id number] MR#: [id number] Case Date: 03/20/2020 Surgeon: Surgeon(s) and Role: [...] Parisa Sears Referring Physician: Carlo Fernandes Md [facility] [place] [address] Diagnosis: 1. Lumbar spondylosis Pre-procedure Note History [...] procedure. Radha Garg MD Pain Management Center Electronic Parts Designer of Anesthesiology [facility] [address] [phone] / [facility] CC: [place] [address] * Op Note - Janette Love MD - 03/12/2020 7:27 PM EST PT not seen. * Op Note - Janette Love MD - 02/27/2020 4:59 PM EST Pain Management Operative Note n/a documented in this encounter Plan of Treatment Upcoming Encounters Date Type Department Care Team (Late st Contact Info) Description 02/12/2024 4:45 PM EST TH Visit (TeleHealth) Dermatology at [facility] [address] [place] [address] Marian Vieyra MD [facility] DR LAKSHMI [place] [address] documented as of this encounter Visit Diagnoses Diagnosis Lumbar spondylosis Lumbosacral spondylosis without myelopathy Lumbar spondylosis Lumbosacral spondylosis without myelopathy documented in this encounter Active and Recently Administered Medications Times are shown in EST. PRN Medication Order 03/18/2020 03/19/2020 03/20/2020 BUpivacaine (pf) (Marcaine) (5 mg/mL) 0.5% injection (CANCELED) ONCE PRN, Starting on Fri03/20/20 at 1437, Until Fri03/20/20 at 1701, Intra-Operative (Intra-Procedure), Routine 1437 (Given - Provid er: Shayna Loya MD) iohexoL (Omnipaque) (240 mg/mL) injection solution (CANCELED) ONCE PRN, Starting on Fri03/20/20 at 1437, Until Fri03/20/20 at 1701, Intra-Operative (Intra-Procedure), Routine 1437 (Given - Provid er: Shayna Loya MD) documented in this encounter Care Teams Roll Tube Setter Relationship Specialty Start Date End Date Poppy Wright APRN [address] [place] [address] PCP - General General Internal Medicine 05/24/19 documented as of this encounter
--- OUTSIDE RECORDS SUMMARY | 2024-01-09 01:48 | XMS_ITS | Encounter Summary ---
[place] [address] Care Team Providers Care Band Straightener Name Role Phone Poppy Wright HUBER Primary Care Provider [phone] Reason for Referral * Diagnostic Test (Routine) - Closed Specialty Diagnoses / Procedures Referred By Contac t Referred To Contact Radiology Diagnoses Sacral pain Low back pain, non-specific Sacroiliac dysfunction Procedures MRI Lumbar Spine wo Contrast (Generic) [facility] [place] [address] [place] [address] Referral ID Status Reason Start Date Expiration Date V isits Requested Visits Authorized [id number] Closed Specialty Service Requested 10/29/2019 04/26/2020 1 1 Reason for Visit * Diagnostic Test (Routine) - Closed Specialty Diagnoses / Procedures Referred By Contac t Referred To Contact Radiology Diagnoses Sacral pain Low back pain, non-specific Sacroiliac dysfunction Procedures MRI Lumbar Spine wo Contrast (Generic) [facility] [place] [address] [place] [address] Referral ID Status Reason Start Date Expiration Date V isits Requested Visits Authorized [id number] Closed Specialty Service Requested 10/29/2019 04/26/2020 1 1 Encounter Details Date Type Department Care Team (Latest Contact Info) Description 11/02/2019 7:46 PM EDT - 11/02/2019 11:59 PM EDT Hospital [place] [address] Carlo Fernandes MD [facility] PHYSICAL [place] [address] Sacral pain; Low back pain, non-specific; Sacroiliac dysfunction Discharge Disposition: Home Social History Tobacco Use [...] PM EST TH Visit (TeleHealth) Dermatology at [facility] [address] [place] [address] Marian Vieyra MD [facility] [address] [place]SH[place] [address] documented as of this encounter Procedures Procedure Name Priority Date/Time Associated Diagnosis Comments MRI LUMBAR SPINE WITHOUT CONTRAST Routine 11/02/2019 8:32 PM EDT Sacral pain Low back pain, non-specific Sacroiliac dysfunction documented in this encounter Results * MRI Lumbar Spine [...] in context of the clinical situation (Reference- Jarvik Et Al, Spine 2001). Findings: (Prevalence in [...] in context of the clinical situation (Reference- Jarvik Et Al, [id number]). Findings: (Prevalence in patients without low back pain), discdegeneration (decreased T2 signal, height loss, bulge) (91%), disc T2-signal loss(83%), disc height loss (56%), disc bulge (64%), disc protrusion (32%), annularfissure (38%). Thank you for letting us participate in the care of this patient. Forquestions regarding this report, please contact the number below. Electronically signed by: Chito Clements [facility] ([phone]),at 11/03/2019 8:57 AM Carlo Fernandes MD IMG MRI ORDERABLES documented in this encounter Visit Diagnoses Diagnosis Sacral pain Disorders of sacrum Low back pain, non-specific Sacroiliac dysfunction Disorders of sacrum documented in this encounter Care Teams Band Straightener Relationship Specialty Start Date End Date Poppy Wright APRN [address] [place] [address] PCP - General General Internal Medicine 05/24/19 documented as of this encounter
--- OUTSIDE RECORDS SUMMARY | 2024-01-09 01:48 | XMS_ITS | Encounter Summary ---
Author Organization [facility] [place] [address] Care Team Providers Care Edi Analyst Name Role Phone Poppy Wright APRN Primary Care Provider Encounter Details Date Type Department Care Team (Late st Contact Info) Description 12/16/2019 Telephone [facility] [place] [address] Alyssia Garzon RN Social History Tobacco Use Types Packs/Day Years Used Date Smoking Tobacco: Never Smokeless Tobacco: Never Sex and Gender Information Value Date Recorded Sex Assigned at Not on file Gender Identity Not on file Sexual Orientation Not on file documented as of this encounter Miscellaneous Notes * Telephone Encounter - Alyssia Garzon RN - 12/16/2019 11:32 AM EDT Incoming call from patient she states I am calling because I am scheduled to have a procedure with Dr. Fernandes done on 12/30/2019 I need to reschedule this as I am running in a marathon the day afterso that may not be Good idea Nurse advises she will transfer the call to pain and spine schedulersso that she can get rescheduled. documented in this encounter Plan of Treatment Upcoming Encounters Date Type Department Care Team (Late st Contact Info) Description 02/12/2024 4:45 PM EST TH Visit (TeleHealth) Dermatology at [facility] [address] [place] [address] Marian Vieyra MD [facility] DR [place]AKSH[place] [address] documented as of this encounter Visit Diagnoses Not on filedocumented in this encounter Care Teams Edi Analyst Relationship Specialty Start Date End Date Poppy Wright APRN [address] [place] [address] PCP - General General Internal Medicine 05/24/19 documented as of this encounter
--- OUTSIDE RECORDS SUMMARY | 2024-01-09 01:48 | XMS_ITS | Encounter Summary ---
[place] [address] Care Team Providers Care Slicing Machine Operator/Tender Name Role Phone Poppy Wright APRN Primary Care Provider [phone] Encounter Details Date Type Department Care Team (Late st Contact Info) Description 02/24/2020 Telephone [facility] [place] [address] Alyssia Garzon RN Social History Tobacco Use Types Packs/Day Years Used Date Smoking Tobacco: Never Smokeless Tobacco: Never Sex and Gender Information Value Date Recorded Sex Assigned at Not on file Gender Identity Not on file Sexual Orientation Not on file documented as of this encounter Miscellaneous Notes * Telephone Encounter - Alyssia Garzon RN - 02/24/2020 4:50 PM EST Parisa Sears :1995 Contact made with patient: I spoke to Ms. Sears at 4:55 PM regarding her upcoming Bilateral lumbar medial branch block scheduled on 02/28/2020 (date) scheduled at 1015 (time) with Dr. Janette Love MD. Medication and Allergy reconciliation: 1. Changes were made in the telephone encounter per patient; marked as reviewed, and closed. 2. Patient confirmed no IVP dye allergy. 3. Have you had any steroid injections anywhere in your body within the last two weeks? no Arrival time: The patient was instructed to arrive at 0945 (30 minutes prior to procedure start time - 60 minutesprior for RF patients with a pacemaker) on 02/28/2020 (date of procedure). Antibiotics/Skin assessment/Illness symptoms/Pain level [...] that she discontinued taking ibuprofen (Motrin) on 02/27/2020 (date). Implant: Patient has pacemaker/defibrillator: No WHAT [...] postponed. Prior to checking in at [employer], please be sure to empty your bladder. Patient confirmed understanding that if they do not follow the above instructions, their procedure is likely to be cancelled. Alyssia Garzon RN documented in this encounter Plan of Treatment Upcoming Encounters Date Type Department Care Team (Late st Contact Info) Description 02/12/2024 4:45 PM EST TH Visit (TeleHealth) Dermatology at [facility] [address] [place] [address] Marian [facility]ieyra MD [facility] [place] [address] documented as of this encounter Visit Diagnoses Not on filedocumented in this encounter Care Teams Slicing Machine Operator/Tender Relationship Specialty Start Date End Date Poppy Wright APRN [address] [place] [address] PCP - General General Internal Medicine 05/24/19 documented as of this encounter
--- OUTSIDE RECORDS SUMMARY | 2024-01-09 01:48 | XMS_ITS | Encounter Summary ---
[place] [address] Care Team Providers Care Medical Data Analyst Name Role Phone Poppy Wright APRN Primary Care Provider [phone] Encounter Details Date Type Department Care Team (Late st Contact Info) Description 01/03/2020 Telephone [facility] [place] [address] Tiana Ahumada RN Social History Tobacco Use Types Packs/Day Years Used Date Smoking Tobacco: Never Smokeless Tobacco: Never Sex and Gender Information Value Date Recorded Sex Assigned at Not on file Gender Identity Not on file Sexual Orientation Not on file documented as of this encounter Miscellaneous Notes * Telephone Encounter - Tiana Ahumada RN - 01/03/2020 4:19 PM EDT Parisa Sears :1995 Message left: I left a message on answering machine Ms. Sears at 4:19 PM regarding her upcoming Bilateral SI joint injection with Dr. Calro Fernandes MD. Message included the followin. Patient instructed to arrive at 1:30 (30 minutes prior to procedure start time) on dateof procedure) with their personal driver. 2. Following instructions left in the message: - Bring Updated list of medications including dosage and reason for taking. - Call the Pain Clinic Nurse at for: ~Procedure instructions. ~If you are taking antibiotics. ~If you have any signs or symptoms of infection, cold or flu. ~If you have any skin breakdown (rashes, cysts, or abscess.) ~If you are taking anticoagulants / blood thinners (Plavix, Pletal, Lovenox, Coumadin, etc). ~If you had any steroid injections anywhere in your body within the last two weeks? Tiana Ahumada RN documented in this encounter Plan of Treatment Upcoming Encounters Date Type Department Care Team (Late st Contact Info) Description 02/12/2024 4:45 PM EST TH Visit (TeleHealth) Dermatology at [address] [place] [address] Marian Vieyra MD [facility] DR LAKSHMI [place] [address] documented as of this encounter Visit Diagnoses Not on filedocumented in this encounter Care Teams Medical Data Analyst Relationship Specialty Start Date End Date Poppy Wright APRN [address] [place] [address] PCP - General General Internal Medicine 05/24/19 documented as of this encounter
--- OUTSIDE RECORDS SUMMARY | 2024-01-09 01:48 | XMS_ITS | Encounter Summary ---
[place] [address] Care Team Providers Care Lead Android Developer Name Role Phone AndraeheribertoPoppy baxter HUBER Primary Care Provider [phone] Reason for Referral * Physical Therapy (Routine) - Specialty Diagnoses / Procedures Referred By Kalin garcia Referred To Contact Physical Therapy Diagnoses Low back pain, non-specific Sacroiliac dysfunction Sacroiliac joint somatic dysfunction Carlo Fernandes MD [facility] [place] [address] Referral ID Status Reason Start Date Expiration Date V isits Requested Visits Authorized [id number] Evaluate and Treat 06/08/2019 12/05/2019 12 12 Reason for Visit * Reason Comments Follow-up Back Pain Encounter Details Date Type Department Care Team (Late st Contact Info) Description 06/08/2019 8:00 AM EST Office Visit [place] [address] Carlo Fernandes MD [facility] PHYSICAL [place] [address] Low back pain, non-specific; Sacroiliac dysfunction; Sacroiliac joint somatic dysfunction Social History Tobacco Use Types Packs/Day Years Used Date Smoking Tobacco: Never Smokeless Tobacco: Never Sex and Gender Information Value Date Recorded Sex Assigned at Not on file Gender Identity Not on file Sexual Orientation Not on file documented as of this encounter Last Filed Vital Signs Vital Sign Reading Time Taken Comments Blood Pressure 133/56 06/08/2019 7:52 AM EST Pulse - - Temperature - - Respiratory Rate - - Oxygen Saturation - - Inhaled Oxygen Concentration - - Weight 71.2 kg (157 lb) 06/08/2019 7:52 AM EST Height 167.6 cm (5' 6) 06/08/2019 7:52 AM EST Body Mass Index 25.34 06/08/2019 7:52 AM EST documented in this encounter Progress Notes * Carlo Fernandes MD - 06/08/2019 8:00 AM EST Chief Complaint Patient presents with ??? Follow-up ??? Back Pain Interim history: The patient returns for follow-up after lumbosacral imaging. There has been no overall change in her pain symptoms. She reports intermittent sacral pain. The pain is aching to throbbing in quality. On occasion, it can feel sharp. Pain is graded as 6-7/10. The pain is increased by transfers into or out of sitting following periods of prolonged sitting orstanding. The pain is decreased by stretching or lying in supine. The patient denies lower extremity pain radiation, numbness, tingling or focal weakness. No past medical history on file. Current [...] ??? ibuprofen (Advil;Motrin) 200 mg Tablet Take 600 mg by mouth every 6 hours as needed for Pain. ??? cholecalciferol, Vitamin D3, 50 mcg (2,000 unit) Tablet Take by mouth. ??? [DISCONTINUED] sulfamethoxazole-trimethoprim DS (Bactrim DS) 800-160 mg Tablet TAKE 1 TABLET BYMOUTH TWICE DAILY FOR 7 DAYS ??? [DISCONTINUED] triamcinolone (KENALOG) 0.1 % Cream APPLY CREAM EXTERNALLY TWICE DAILY A THIN LAYER TO AFFECTED AREA No current facility-administered medications on file prior to visit. Allergies Allergen Reactions ??? Coffee Hives ??? Cat Dander Other (See Comments) congestion Review of Systems: As above. Objective: BP 133/56 Ht 167.6 cm (5' 6) Wt 71.2 kg (157 lb) BMI 25.34 kg/m?? Casually dressed, well-developed and well-nourished female in no apparent distress. Alert and oriented x3. Affect is appropriate. Shabana's signs are absent. Gait: Gait is normal. There is no difficulty performing bilateral heel or toe walking. Lumbar motion: Patient reports sacral pain with active lumbar extension. Pelvic alignment/motion: Pelvis is anteriorly rotated. Interval between ribs and pelvis is decreased bilaterally. Standing iliac crest palpation is elevated on the right. Standing flexion test is positive on the right. Palpation: Tender over the sacrum. There is mild tenderness over bilateral quadratus lumborum. Motor: 5/5 throughout the lower extremities from seated position. Sensation: Intact to light touch throughout the lower extremities. Straight leg raising: Negative bilaterally. Muscle stretch reflexes: 2+ bilaterally for quadriceps and Achilles tendon. 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 There is no evidence of spondylolysis or spondylolisthesis. Assessment: Encounter Diagnoses Name Primary? Low back pain, non-specific ??? Sacroiliac dysfunction ??? Sacroiliac joint somatic dysfunction I have reviewed the lumbosacral radiographs in detail with the patient. The study demonstrates no evidence of spondylolysis or spondylolisthesis. Transitional anatomy is noted at the lumbosacral junction and this may be playing a role in the patient's ongoing pain. 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 The patient continues to demonstrate sacroiliac mechanical dysfunction as well. I cannot exclude the possibility that the posterior pelvis and sacroiliac joints are also a source of pain. In an attempt to help determine the extent to which the current symptoms are being driven by sacroiliac mechanical dysfunction, the patient was treated with manual therapy, as below: Manual therapy, using gentle muscle energy techniques, was applied to the patient's pelvis and right lower extremity by MD in the office today. The treatment was tolerated well by the patient and waswithout complication. Pelvic obliquity resolved and leg lengths were equalized following the treatment. Lumbopelvic flexibility from the standing position was noted to be bilaterally symmetric post-treatment. Low back pain decreased from a level of 6/10 pre-treatment to 3/10 post-treatment. I recommend a course of outpatient physical therapy as the next step in clinical management. A prescription has been written for postural orthodoxy, manual therapy to the pelvis and sacroiliac joints to restore normal alignment, rotation and motion, anti-inflammatory modalities as needed to the sacrum and bilateral L5 transverse [id number] pseudoarthroses, flexibility training with attention to iliopsoas, quadratus lumborum, bilateral hamstrings, iliotibial bands and quadriceps and progression to pelvic stabilization and core strengthening. Plan: 1. Outpatient physical therapy, as above. 2. Follow-up with me in 6 weeks during PT treatment. 3. Consideration will be given to diagnostic/therapeutic sacroiliac joint steroid injection versus CT-guided steroid injection of the pseudoarthroses, depending on the response to PT treatment and the further evolution of the patient's symptoms and examination. Carlo Fernandes MD, MS 06/08/2019 documented in this encounter Plan of Treatment Upcoming Encounters Date Type Department Care Team (Late st Contact Info) Description 02/12/2024 4:45 PM EST TH Visit (TeleHealth) Dermatology at [address] [place] [address] Marian Vieyra MD [facility] [address] [address] Scheduled Referrals Name Type Priority Associated Diagnoses Orde r Schedule Referral to Physical Therapy Outpatient Referral Routine Low back pain, non-specific Sacroiliac dysfunction Sacroiliac joint somatic dysfunction Ordered: 06/08/2019 documented as of this encounter Visit Diagnoses Diagnosis Low back pain, non-specific Sacroiliac dysfunction Disorders of sacrum Sacroiliac joint somatic dysfunction Nonallopathic lesion of sacral region, not elsewhere classified documented in this encounter Care Teams Lead Android Developer Relationship Specialty Start Date End Date Poppy Wright APRN [address] [place] [id number] PCP - General General Internal Medicine 05/24/19 documented as of this encounter
--- OUTSIDE RECORDS SUMMARY | 2024-01-09 01:48 | XMS_ITS | Encounter Summary ---
Author Organization [facility] [place] [address] Care Team Providers Care Warehouseman Name Role Phone Poppy Wright APRN Primary Care Provider [phone] Encounter Details Date Type Department Care Team (Late st Contact Info) Description 03/21/2020 Telephone [facility] [place] [address] Alyssia Garzon RN Social History Tobacco Use Types Packs/Day Years Used Date Smoking Tobacco: Never Smokeless Tobacco: Never Sex and Gender Information Value Date Recorded Sex Assigned at Not on file Gender Identity Not on file Sexual Orientation Not on file documented as of this encounter Miscellaneous Notes * Telephone Encounter - Alyssia Garzon RN - 03/21/2020 8:06 AM EST Incoming call from patient she states I am calling to see if you can give me the CPT codes for myprocedure that I had done yesterday and also the third procedure that I may be having the RFA? Nurse advise patient she can get the CPT codes for the patient and then the patient lost connection andNurse called pain and spine schedulers to let them know patient may call back she is looking for CPT codes for LMBB and RFA. Nurse was advised by pain and spine impregnating helper that patient had called backwhile I was on phone with impregnating helper and she was given the PT codes LMBB [address] RFA [id number]. documented in this encounter Plan of Treatment Upcoming Encounters Date Type Department Care Team (Late st Contact Info) Description 02/12/2024 4:45 PM EST TH Visit (TeleHealth) Dermatology at [facility] [address] [place] [address] aMrian Vieyra MD [facility] [address] [place] [address] documented as of this encounter Visit Diagnoses Not on filedocumented in this encounter Care Teams Warehouseman Relationship Specialty Start Date End Date Poppy Wright APRN [address] [place] [id number] PCP - General General Internal Medicine 05/24/19 documented as of this encounter
--- OUTSIDE RECORDS SUMMARY | 2024-01-09 01:48 | XMS_ITS | Encounter Summary ---
Author Organization [facility] [place] [address] Care Team Providers Care Cutter Apprentice Hand Name Role Phone Poppy Wright APRN Primary Care Provider Reason for Visit * Reason Comments Back Pain Encounter Details Date Type Department Care Team (Late st Contact Info) Description 10/14/2019 10:30 AM EDT Office Visit [facility] [place] [id number] Carlo Feranndes MD [facility] [place]ICAL [place] [address] Sacral pain; Bertolotti's syndrome; Low back pain, non-specific Social History Tobacco Use Types Packs/Day Years [...] - Inhaled Oxygen Concentration - - Weight 72.6 kg (160 lb) 10/12/2019 1:19 PM EDT Height 167.6 cm (5' 6) 10/12/2019 1:19 PM EDT Body Mass Index 25.82 10/12/2019 1:19 PM EDT documented in this encounter Progress Notes * Carlo Fernandes MD - 10/14/2019 10:30 AM EDT Chief Complaint Patient presents with ??? Back Pain Interim history: The patient returns for follow-up during PT treatment. She underwent a 2.5-month treatment course through September. Unfortunately, she has experienced no clinical improvement. In fact, her symptoms have increased over time. She reports pain in the sacrum and bilateral parasacral regions. The pain has aslight right-sided predominance. It can radiate into the right posterior thigh. The patient notes that she sustained a fall on stairs onto her back since the last visit. This did not seem to cause any significant change in symptoms, however. The current pain symptoms are essentially constant and aching to sharp in quality. Pain is graded at 6/10 in intensity. She reports an increase in pain frequency and intensity over time. The pain is increased by prolonged sitting, prolonged standing or twisting. Pain is decreased by rest or position change. Patient denies lower extremity numbness, tingling, focal weakness or [...] Objective: Ht 167.6 cm (5' 6) Wt 72.6 kg (160 lb) BMI 25.82 kg/m?? Well-developed and well-nourished female in no apparent distress. Alert and oriented x3. Affect is appropriate. Shabana's signs are absent. Gait: Nonantalgic. There is no difficulty performing bilateral heel or toe walking. Lumbar motion: Patient reports sacral pain at end range active lumbar extension. Pelvic alignment/motion: Standing iliac crest palpation is elevated on the right. Standing flexion test is negative bilaterally. There is apparent lengthening of right lower extremity with supine/long sitting. Palpation: Tenderness is marked over the sacrum. This is most pronounced both centrally and in bilateral superolateral sacral areas. Only mild tenderness is appreciated over the SI joints. Additionaltenderness is noted over bilateral quadratus lumborum. LE flexibility: Tightness noted in left glutei and bilateral hamstrings. Pelvic/SI provocation: Patient reports sacral pain to pelvic shear. JEFFREY is positive on the right for sacral pain. Motor: 5/5 throughout the lower extremities. Sensation: Intact to light touch throughout the lower extremities. Straight leg raising: Negative bilaterally in sitting and supine positions. Muscle stretch reflexes: 2+ bilaterally for quadriceps and Achilles tendon. Tone normal throughout the lower extremities. No ankle clonus. Assessment: Encounter Diagnoses Name Primary? Sacral pain ??? Bertolotti's syndrome The patient has experienced no significant relief with a combination of manual therapy in this office and outpatient PT treatment focused on sacroiliac pain and dysfunction. The patient has known transitional anatomy at the lumbosacral junction. I believe that the current pain is being generated from the sacrum, most likely from bilateral pseudoarthroses between the transverse processes of L5 andthe sacrum. I recommend CT-guided injection of the pseudoarthroses for diagnostic and therapeutic purposes. Plan: 1. Referral to interventional radiology for CT-guided injections, as above. 2. Follow-up with me 3 weeks post-injection. Greater than 50% of today's 35-minute visit was spent in counseling and coordination of care. Carlo Fernandes MD, MS 10/14/2019 * Elsy Castellanos LNA - 10/14/2019 10:30 AM EDT Confirmed with pt that a detailed line by line medication and allergy review was performed by Elsy Castellanos as documented on as part of the telephone Intake process. Confirmed with pt thatthere have been no medication/allergy additions or changes over the previous 2 days. documented in this encounter Miscellaneous Notes * Addendum Note - Julissa Lacey, RN - 10/14/2019 10:30 AM EDTAddended by: JULISSA LACEY on: 10/21/2019 10:04 AM Modules accepted: Orders documented in this encounter Plan of Treatment Upcoming Encounters Date Type Department Care Team (Late st Contact Info) Description 02/12/2024 4:45 PM EST TH Visit (TeleHealth) Dermatology at [facility] [address] [place] [address] Marian Vieyra MD [facility] [address] [place] [address] documented as of this encounter Visit Diagnoses Diagnosis Sacral pain Disorders of sacrum 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
--- OUTSIDE RECORDS SUMMARY | 2024-01-09 01:48 | XMS_ITS | Encounter Summary ---
Author Organization [facility] [place] [address] Care Team Providers Care Fish Egg Packer Name Role Phone Poppy Wright APRN Primary Care Provider [phone] Encounter Details Date Type Department Care Team (Late st Contact Info) Description 03/20/2020 2:15 PM EST Ancillary [place] [address] Rahda Garg MD [facility] [place] [address] Social History Tobacco Use Types Packs/Day Years [...] PM EST TH Visit (TeleHealth) Dermatology at [facility] [address] [place] [address] Marian Vieyra MD [facility] [address] [place] [address] documented as of this encounter Procedures Procedure Name Priority Date/Time Associated Diagnosis Comments FILM LIBRARY STORAGE ONLY PAIN CLINIC C ARM Routine 03/20/2020 4:58 PM EST documented in this encounter Results * Film Library- Storage Only pain Clinic C-Arm (03/20/2020 4:58 PM EST) Narrative RAD - 03/20/2020 4:58 PM EST See PACS for result report. Radha Garg MD [facility] [place] FILM LIBRARY ORD ERABLES Performing Organization Address City/State/[facility] Co de Phone Number [place], [place] documented in this encounter Visit Diagnoses Not on filedocumented in this encounter Care Teams Fish Egg Packer Relationship Specialty Start Date End Date Poppy Wright APRN [address] [place] [id number] PCP - General General Internal Medicine 05/24/19 documented as of this encounter
--- OUTSIDE RECORDS SUMMARY | 2024-01-09 01:48 | XMS_ITS | Encounter Summary ---
Author Organization [facility] [place] [address] Care Team Providers Care Interface Control Officer Name Role Phone Poppy Wright APRN Primary Care Provider [phone] Encounter Details Date Type Department Care Team (Late st Contact Info) Description 02/10/2020 Notes Only [facility] [place] [address] Ekaterina Fox Social History Tobacco Use Types Packs/Day Years Used Date Smoking Tobacco: Never Smokeless Tobacco: Never Sex and Gender Information Value Date Recorded Sex Assigned at Not on file Gender Identity Not on file Sexual Orientation Not on file documented as of this encounter Progress Notes * Ekaterina Fox - 02/10/2020 4:48 PM EST Procedure: LMBB MRI required? no (If yes, verify that updated MRI is in eDH) (Atlanto-Axial Joint injection, WAQAS; 1 year or <)(Caudal JU, LESI, Thoracic JU, TFESI Lumbar & Cervical; 2 years or <) Referring Provider: Carlo Fernandes MD Are you on any blood thinners? no (If yes, specify medication type and prescribing provider for anticoagulant hold request) Medication: Prescribing provider: Anticoagulant Medication Therapy Protocol Guide for Procedures: Medication Must stop prior May resume Labs Coumadin (Warfarin) 5 days Per Prescriber 1 hour prior (<1.2) PT/INR Plavix (Clopidogrel) 7 days Per Prescriber n/a Fragmin (Dalteparin) 24 hours Per Prescriber n/a Lovenox (Enoxaparin) 24 hours Per Prescriber n/a Ticlid (Ticlopidine) 14 days Per Prescriber n/a Innohep (Tinzaparin) 24 hours Per Prescriber n/a Aggrenox (Dipyridamole) 7 days Per Prescriber n/a Pletal (Cilostazol) 2 days Per Prescriber n/a Pradaxa (Dabigretran) 5 days Per Prescriber n/a Xarelto (Rivaroxaban) 3 days 24 hours after n/a Eliquis (Apixaban) 3 days Per Prescriber n/a Inlyta (Axitinib) 24 hours 48 hours after n/a Agrylin (Anagrelide) N/a n/a Day of procedure Platelet count Effient (Prasugrel) 7 days Per Prescriber n/a Brilinta (Ticagrelor) 5 days Per Prescriber n/a Trental (Pentoxifylline) 2 days Per Prescriber n/a Aspirin (ASA, Mckenna, Excedrin) 6 days Per Prescriber n/a Aggrastat (Tirofiban) 8 hours Per Prescriber n/a Angiomax (Bivalirudin) Must be discussed with provider before scheduling Per Provider Argatroban Must be discussed with provider before scheduling Per Provider Arixta (Fondaparinux) 4 days Per Prescriber n/a Effient (Prasugrel) 7 days Per Prescriber n/a Elmiron (Pentosan) 7 days Per Prescriber n/a Heparin, subq (Hemochron) 12 hours Per Prescriber n/a Integrelin (Eptifibatide) 8 hours Per Prescriber n/a Iprivask (Desirudin) Must be discussed with provider before scheduling Per Provider Normiflo (Ardeparin) 24 hours Per Prescriber n/a Persantine (Dipyridamole) 2 days Per Prescriber n/a Reopro (Abciximab) 2 days Per Prescriber n/a Are you taking any NSAIDs? yes Type of NSAID: Non-Steroidal Anti-Inflammatory Drug Guidelines: Medication Other Names Recommended Discontinuation Can Resume Aspirin - 81 mg and 325 mg (Note: If recommended or prescribed by provider, contact Pain Management) ASA, Mckenna, Excedrein 6 days Per Prescriber Diclofenac Voltaren 1 day 24 hours after Etodolac Lodine 2 days 24 hours after Flurbiprofen Ansaid 7 days 24 hours after Ibuprofen Advil, Motrin, Midol 1 day 24 hours after Indomethicin Indocin 2 days 24 hours after Ketorolac Toradol 1 day 24 hours after Meloxicam Mobic 4 days 24 hours after Nabumetone Relafen 6 days 24 hours after Naproxen Naprosyn, Aleve 4 days 24 hours after Oxaprozin Daypro 10 days 24 hours after Piroxicam Feldene 10 days 24 hours after Salsalate Disalcid 1 day 24 hours after Nutritional Supplements Fish Oil, Ginko Biloba, Garlic, Vitamin E, Bromelain, Nattokinase 7 days 24hours after Currently taking any oral steroids (i.e. prednisone) or have you had a steroid injection within thepast two weeks? no Are you currently taking or have you recently been treated with antibiotics? no Have you been in the ER or hospitalized recently? no If yes. Why? Do you have any allergies to anesthetics or steroids? no Are you diabetic? no (In the case of type I diabetes, steroids injections can make blood sugar spike) Is this being billed to workers comp or your regular insurance (verify insurance)? Worker's Comp no Insurance: [employer] Completed by: Ekaterina documented in this encounter Plan of Treatment Upcoming Encounters Date Type Department Care Team (Late st Contact Info) Description 02/12/2024 4:45 PM EST TH Visit (TeleHealth) Dermatology at [facility] [address] [place] [address] Marian Vieyra MD [facility] [address] [place] [address] documented as of this encounter Visit Diagnoses Not on filedocumented in this encounter Care Teams Interface Control Officer Relationship Specialty Start Date End Date Poppy Wright APRN [address] [place] [address] PCP - General General Internal Medicine 05/24/19 documented as of this encounter
--- OUTSIDE RECORDS SUMMARY | 2024-01-09 01:48 | XMS_ITS | Encounter Summary ---
Author Organization [facility] [place] [address] Care Team Providers Care Director Of Volunteer Services Name Role Phone AndraeheribertoPoppy baxter HUBER Primary Care Provider [phone] Encounter Details Date Type Department Care Team (Late st Contact Info) Description 03/21/2020 Telephone [facility] [place] [address] Ekaterina Fox Social History Tobacco Use Types Packs/Day Years Used Date Smoking Tobacco: Never Smokeless Tobacco: Never Sex and Gender Information Value Date Recorded Sex Assigned at Not on file Gender Identity Not on file Sexual Orientation Not on file documented as of this encounter Miscellaneous Notes * Telephone Encounter - Ekaterina Fox - 03/21/2020 3:51 PM EST Procedure: Lumbar RFA MRI required? no (If yes, verify that updated MRI is in eDH) (Atlanto-Axial Joint injection, WAQAS; 1 year or <)(Caudal JU, LESI, Thoracic JU, TFESI Lumbar & Cervical; 2 years or <) RISK LEVEL: Low Risk Are you on any blood thinners? no (If yes, specify medication type and prescribing provider for anticoagulant hold request) Medication: Prescribing provider: Are you taking any NSAIDs? no Type of NSAID: Are you currently taking any oral steroids (i.e. prednisone) or have you had a steroid injection within the past two weeks? no Are you currently taking [...] (verify insurance)? Worker's Comp no Insurance: [employer] documented in this encounter Plan of Treatment Upcoming Encounters Date Type Department Care Team (Late st Contact Info) Description 02/12/2024 4:45 PM EST TH Visit (TeleHealth) Dermatology at [facility] [address] [place] [address] Marian Vieyra MD [facility] [address] [place] [address] documented as of this encounter Visit Diagnoses Not on filedocumented in this encounter Care Teams Director Of Volunteer Services Relationship Specialty Start Date End Date Poppy Wright APRN [address] [place] [address] PCP - General General Internal Medicine 05/24/19 documented as of this encounter
--- OUTSIDE RECORDS SUMMARY | 2024-01-09 01:48 | XMS_ITS | Encounter Summary ---
Author Organization [facility] [place] [address] Care Team Providers Care Art Glass Setter Name Role Phone Poppy Wright APRN Primary Care Provider [phone] Encounter Details Date Type Department Care Team (Late st Contact Info) Description 03/27/2020 Telephone [facility] [place] [address] Alyssia Garzon RN Social History Tobacco Use Types Packs/Day Years Used Date Smoking Tobacco: Never Smokeless Tobacco: Never Sex and Gender Information Value Date Recorded Sex Assigned at Not on file Gender Identity Not on file Sexual Orientation Not on file documented as of this encounter Miscellaneous Notes * Telephone Encounter - Alyssia Garzon RN - 03/27/2020 12:12 PM EST Return call to patient as she had called in and was wondering if she could fly a couple days after her procedure she is having on 03/30/2020. Nurse spoke with Dr. Garg who is doing her procedure and he advises per pain clinic policy that patients don't travel ( Fly) for 7-10 days after a procedure. Patient states Ok thank you I will have to call you back and let you know if I am going to reschedule my procedure or cancel my trip Nurse will await a call back from patient. documented in this encounter Plan of Treatment Upcoming Encounters Date Type Department Care Team (Late st Contact Info) Description 02/12/2024 4:45 PM EST TH Visit (TeleHealth) Dermatology at [facility] [address] [place] [address] Marian Vieyra MD [facility] [address] [place] [address] documented as of this encounter Visit Diagnoses Not on filedocumented in this encounter Care Teams Art Glass Setter Relationship Specialty Start Date End Date Poppy Wright APRN [address] [place] [id number] PCP - General General Internal Medicine 05/24/19 documented as of this encounter
--- OUTSIDE RECORDS SUMMARY | 2024-01-09 01:48 | XMS_ITS | Encounter Summary ---
Author Organization [facility] Address [facility] [place] [address] Care Team Providers Care Sourcing Specialist Name Role Phone Poppy Wright APRN Primary Care Provider [phone] Encounter Details Date Type Department Care Team (Latest Contact Info) Description 05/24/2019 9:05 AM EST - 05/24/2019 11:59 PM [email or web address] Hospital Encounter XRay at [address] [place] [address] Carlo Fernandes MD [facility] PHYSICAL [place] [address] Low back pain, non-specific; Sacroiliac dysfunction Discharge [...] TABLET BY MOUTH ONCE DAILY DIRECTED 03/30/2019 4 sulfamethoxazole-trimet hoprim DS (Bactrim DS) 800-160 mg Tablet TAKE 1 TABLET BY MOUTH TWICE DAILY FOR 7 DAYS 05/20/2019 0 triamcinolone (KENALOG) 0.1 % Cream APPLY CREAM EXTERNALLY TWICE DAILY A THIN LAYER TO AFFECTED AREA 05/18/2019 0 acetaminophen (Tylenol) 325 mg Tablet Take 650 mg by mouth every 6 hours as needed for Pain. 11/10/2023 ibuprofen (Advil;Motrin) 200 mg Tablet Take 800 mg by mouth as needed for Pain. 11/09/2023 cholecalciferol, Vitamin D3, 50 mcg (2,000 unit) Tablet Take by mouth. 2021 documented as of this encounter Plan of Treatment Upcoming Encounters Date Type Department Care Team (Late st Contact Info) Description 02/12/2024 4:45 PM EST TH Visit (TeleHealth) Dermatology at [facility] [address] [place] [address] Marian Vieyra MD [facility] DR LAKSH[address] [place] [address] documented as of this encounter Procedures Procedure Name Priority Date/Time Associated Diagnosis Comments XR LUMBAR SPINE MIN 4 VIEW Routine 05/24/2019 9:18 AM EST Low back pain, non-specific Sacroiliac dysfunction documented in this encounter Results * XR Lumbar Spine Min 4 view (05/24/2019 9:18 AM EST) Anatomical Region Laterality Modality L-spine N/A Digital Radiogra phy Impressions 05/24/2019 10:19 AM EST 1. ??No listhesis, as clinically queried. 2. ??Transitional lumbosacral anatomy, as described. Thank you for letting us participate in the care of this patient. For questions regarding this report, please contact the number below. ? Narrative 05/24/2019 10:19 AM EST EXAMINATION: XR LUMBAR SPINE MIN 4 VIEW CLINICAL HISTORY: Chronic low lumbar/sacral pain. ??Evaluate for spondylolisthesis; please include bilateral oblique views (as entered by ordering provider in the order requisition) TECHNIQUE: 4 views of the lumbar spine. AP, lateral, and bilateral oblique radiographs were obtained. COMPARISON: None FINDINGS: For the purposes of interpretation of the study, there appear to be small riblets at T12. 5 nonrib-bearing lumbar-type vertebral bodies are assumed. There appears to be lumbosacral transitional anatomy with sacralization of of the L5 vertebral body. No focal vertebral body height loss. No listhesis. Intervertebral disc space heights are maintained. No pars defects are appreciated. Procedure Note Kylah Xie MD - 05/24/2019 EXAMINATION: XR LUMBAR SPINE MIN 4 VIEW CLINICAL HISTORY: Chronic low lumbar/sacral pain. Evaluate for spondylolisthesis; please include bilateral oblique views (as entered by ordering provider in the order requisition) TECHNIQUE: 4 views of the lumbar spine. AP, lateral, and bilateral obliqueradiographs were obtained. COMPARISON: None FINDINGS: For the purposes of interpretation of the study, there appear to besmall riblets at T12. 5 nonrib-bearing lumbar-type vertebral bodies are assumed.There appears to be lumbosacral transitional anatomy with sacralization of ofthe L5 vertebral body. No focal vertebral body height loss. No listhesis. Intervertebral discspace heights are maintained. No pars defects are appreciated. IMPRESSION 1. No listhesis, as clinically queried. 2. Transitional lumbosacral anatomy, as described. Thank you for letting us participate in the care of this patient. Forquestions regarding this report, please contact the number below. Carlo Fernandes MD IMG DX ORDERABLES documented in this encounter Visit Diagnoses Diagnosis Low back pain, non-specific Sacroiliac dysfunction Disorders of sacrum documented in this encounter Care Teams Sourcing Specialist Relationship Specialty Start Date End Date Poppy Wright APRN [address] [place] [id number] PCP - General General Internal Medicine 05/24/19 documented as of this encounter
--- OUTSIDE RECORDS SUMMARY | 2024-01-09 01:48 | XMS_ITS | Encounter Summary ---
Author Organization [facility] Address [facility] [place] [address] Care Team Providers Care Marketing Education Teacher Name Role Phone Poppy Wright APRN Primary Care Provider [phone] Reason for Visit * Reason Comments Back Pain Encounter Details Date Type Department Care Team (Late st Contact Info) Description 05/24/2019 8:00 AM EST Office Visit [place] [phone] Carlo Fernandes MD [facility] PHYSICAL MEDICINE [place] [address] Low back pain, non-specific (Primary Dx); Sacroiliac dysfunction Social History Tobacco Use Types Packs/Day Years Used Date Smoking Tobacco: Never Smokeless Tobacco: Never Sex and Gender Information Value Date Recorded Sex Assigned at Not on file Gender Identity Not on file Sexual Orientation Not on file documented as of this encounter Last Filed Vital Signs Vital Sign Reading Time Taken Comments Blood Pressure 134/74 05/24/2019 7:52 AM EST Pulse 76 05/24/2019 7:52 AM EST Temperature - - Respiratory Rate - - Oxygen Saturation - - Inhaled Oxygen Concentration - - Weight 71.7 kg (158 lb) 05/24/2019 7:52 AM EST Height 170.2 cm (5' 7) 05/24/2019 7:52 AM EST Body Mass Index 24.75 05/24/2019 7:52 AM EST documented in this encounter Progress Notes * Carlo Fernandes MD - 05/24/2019 8:00 AM EST Images from the original note were not included. Chief Complaint Patient presents with ??? Back Pain Subjective: Parisa Sears is a 23 y.o. female who is self-referred for Physical Medicine and Rehabilitation evaluation. She reports primary symptoms of nearly constant sacral pain. She can have occasional bilateral buttock pain, as well. The symptoms began a few years ago and were of gradual onset. She denies any specific incident, injury or event that may have contributed to the onset of symptoms. In November 2018, she fell through the frame of a deck that was under construction when the board placed atop the frame collapsed. This did not lead to any significant change in her symptoms, however. The pain is essentially constant and is aching in quality. Pain is graded as 3- 4/10. Pain has increased in frequency and intensity over time. The pain is increased by prolonged sitting, prolonged static standing or prolonged ambulation and by car transfers, especially after a period of prolonged sitting. Pain is decreased by lying in supine with hips flexed. The patient denies lower extremity pain radiation. Sensory symptoms have been limited to tingling in the sacrum. She denies focal lower extremity weakness, bowel/bladder dysfunction or gait/balance impairment. The patient is receiving no active treatment. She has been undergoing a work-up for a small left perineal mass, thought possibly to be a lymph node. Past medical history is significant for low back pain, primarily in the region of the sacrum, since adolescence. Patient notes that she has long had poor posture and she used to sit with an abnormal or unusual pelvic tilt that she finds difficult to describe. She denies any low back injury. No past medical history on file. No past surgical history on file. No family history on file. Social History Tobacco Use ??? Smoking status: Never Smoker ??? Smokeless tobacco: Never Used Substance Use Topics ??? Alcohol use: Not on file ??? Drug use: Not on file Current Outpatient Medications on File Prior to Visit Medication Sig Dispense Refill ??? Tri-Sprintec, 28, 0.18/0.215/0.25 mg-35 mcg (28) Tablet TAKE 1 TABLET BY MOUTH ONCE DAILY DIRECTED ??? sulfamethoxazole-trimethoprim DS (Bactrim DS) 800-160 mg Tablet TAKE 1 TABLET BY MOUTH TWICE DAILY FOR 7 DAYS ??? triamcinolone (KENALOG) 0.1 % Cream APPLY CREAM EXTERNALLY TWICE DAILY A THIN LAYER TO AFFECTEDAREA ??? acetaminophen (Tylenol) 325 mg Tablet Take [...] Other (See Comments) congestion Review of Systems: A comprehensive review of systems was negative except for: as noted above. Spine Center Response Trends Patient-reported scores: myD-H Spine Questionnaire responses 05/24/2019 Oswestry Disability Index (Range: 0-100) 16 (Minimal disability) PROMIS-10 Physical Health Score 50.8 PROMIS-10 Mental Health Score 53.3 Objective: BP 134/74 Pulse 76 Ht 170.2 cm (5' 7) Wt 71.7 kg (158 lb) BMI 24.75 kg/m?? Pleasant, casually dressed, well-developed and well-nourished female in no apparent distress. Respiratory effort is normal and unlabored. Skin of the lower extremities is intact. No rashes observed. Lower extremities are warm and well perfused. Pedal pulses are 2+ and palpable bilaterally. Alert and oriented x3. Affect is appropriate. Shabana's signs are absent. Gait and station: Gait is normal. There is no difficulty performing bilateral heel or toe walking. Right shoulder is elevated in standing. Patient exhibits a slight decrease in thoracic kyphosis. Lumbar motion: Lumbosacral excursion measures 5.5 cm on modified Jeana's testing. Active lumbar flexion is painless. Patient reports an increase in sacral pain with active extension, especially when in single leg stance on the left. Pelvic alignment/motion: Pelvis is anteriorly rotated. Standing iliac crest palpation is elevated on the right. Sitting and standing flexion tests are positive on the right. There is apparent lengthening of right lower extremity with supine/long sitting. Palpation: Tenderness is noted over the sacrum and bilateral sacroiliac joints. There is mild tenderness over bilateral quadratus lumborum. A small step-off is appreciated in the posterior midline atthe lumbosacral junction. This area is nontender. LE flexibility: Tightness present in right iliotibial bands and rectus femoris. Pelvic/SI provocation: Patient reports sacral pain with pelvic shear. JEFFREY is positive on the leftfor sacral pain. Gaenslen's test is positive bilaterally for sacral pain. Motor: Right hip abductors 4/5. Lower extremity motor examination otherwise 5/5 throughout. Sensation: Intact to light touch throughout the lower extremities. Straight leg raising: Negative bilaterally in the sitting and supine positions. Muscle stretch reflexes: 2+ bilaterally for quadriceps and Achilles tendon. Tone normal throughout the lower extremities. No ankle clonus. Assessment: Encounter Diagnoses Name Primary? Low back pain, non-specific Yes ??? Sacroiliac dysfunction The patient is a 23-year-old female with a chronic history of focal sacral pain. She exhibits clinical evidence of sacroiliac mechanical dysfunction and I note localization of pain to the sacrum withprovocative stress maneuvers across the pelvis. It is quite possible that pain originates directly in the posterior pelvis and has arisen secondary to the observed biomechanical dysfunction. I cannot exclude the possibility that pain is referred to the sacrum and may be facet-mediated, however. The patient reports a history of pain since adolescence. The current pain symptoms can be increased by facet loading. There appears to be a step-off at the lumbosacral junction. I recommend lumbar radiographs, including bilateral oblique views, to evaluate for the presence of lumbosacral spondylolisthesis. I have explained my findings in detail to the patient and her mother. We spoke, in general terms, about the potential clinical utility of PT treatment for sacroiliac pain and dysfunction, as well as for facet-mediated pain. We also discussed the potential clinical utility of spinal and pelvic jointinjections for both diagnostic and therapeutic purposes. Plan: 1. Lumbar radiographs to be completed today, as above. 2. Follow-up with me in approximately 2 weeks for review of the radiographs and formulation of definitive treatment recommendations. Carlo Fernandes MD, MS 05/24/2019 documented in this encounter Plan of Treatment Upcoming Encounters Date Type Department Care Team (Late st Contact Info) Description 02/12/2024 4:45 PM EST TH Visit (TeleHealth) Dermatology at [facility] [address] [place] [phone] Marian Vieyra MD [facility] DR [address] [place] [address] documented as of this encounter Results * XR Lumbar Spine [...] encounter Visit Diagnoses Diagnosis Low back pain, non-specific- Primary Sacroiliac dysfunction Disorders of sacrum Low back pain, non-specific Sacroiliac dysfunction Disorders of sacrum documented in this encounter Care Teams Marketing Education Teacher Relationship Specialty Start Date End Date Poppy Wright APRN [address] [place] [address] PCP - General General Internal Medicine 05/24/19 documented as of this encounter
--- OUTSIDE RECORDS SUMMARY | 2024-01-09 01:48 | XMS_ITS | Encounter Summary ---
[place] [address] Care Team Providers Care Hotel Front Office Manager Name Role Phone Poppy Wright APRN Primary Care Provider [phone] Encounter Details Date Type Department Care Team (Late st Contact Info) Description 03/21/2020 Telephone [facility] [place] [address] Alyssia Garzon RN Social History Tobacco Use Types Packs/Day Years Used Date Smoking Tobacco: Never Smokeless Tobacco: Never Sex and Gender Information Value Date Recorded Sex Assigned at Not on file Gender Identity Not on file Sexual Orientation Not on file documented as of this encounter Miscellaneous Notes * Telephone Encounter - Alyssia Garzon RN - 03/21/2020 8:51 AM EST [facility] MBB/RF Risk Stratification Post-procedure phone call from patient to report her response to the Bilateral lumbar medial branchblock procedure performed on 03/20/2020 in the [facility] by Radha Garg MD. This is patient's: first medial branch block. Patient reports that after the procedure she experienced: _X_ Patient reported post-block numeric pain scale: 1 /10 (average pain since procedure) _X_ Post-procedure pain has been reduced by 95%. (> 80% all other insurers) _X_ Pain relief: complete If pain is reduced, it lasted: Yes 4 hours or greater Changes in functional status post procedure: Pertinent recent trauma or surgery? no If No, proceed Patient taking any NSAIDs? yes If yes, Name of med(s): ibuprofen Patient taking Aspirin or Aggrenox (dipyridamole) no Diagnosed/treated for an active infection in the past 2 wks? no Patient taken an antibiotic in the past 2 wks? no Patient has pacemaker/defibrillator: no JUAN Questions pertaining to Risk Stratification: Patient taking anticoagulants/ Antiplatelets, or pt is taking concurrent ASA/NSAIDS)? no Per JUAN Guidelines/[facility] Guidelines (taking into account pt's e-DH problem list and pt's self report as noted above; the requested procedure is stratified as a: Low Risk Procedure Based on the information provided above and after discussion with the patient, the following actions will be taken: _X_ Patient meets criteria for radiofrequency treatment and would like to proceed with a bilateral lumbar spine at L3, L4 and L5-DR Radiofrequency procedure with Radha Garg MD. Patient advised Nurse that se has spoken with her insurance and they only require one block the patient can proceed to the RFA [employer] will be faxing over information to the [facility]. Disposition: [facility] in-basket message sent to material scheduler requesting they contact pt to arrange requested injection. Patient's questions regarding requested procedure were answered and patient verbalized understanding. knows how to contact the [facility] and understands that she may do so at any time should she develop any questions or concerns. documented in this encounter Plan of Treatment Upcoming Encounters Date Type Department Care Team (Late st Contact Info) Description 02/12/2024 4:45 PM EST TH Visit (TeleHealth) Dermatology at [facility] [address] [place] [address] Marian Vieyra MD [facility] [address] L[address]SH[address] [place] [address] documented as of this encounter Visit Diagnoses Not on filedocumented in this encounter Care Teams Hotel Front Office Manager Relationship Specialty Start Date End Date Poppy Wright APRN [address] [place] [address] PCP - General General Internal Medicine 05/24/19 documented as of this encounter
--- OUTSIDE RECORDS SUMMARY | 2024-01-09 01:48 | XMS_ITS | Encounter Summary ---
Author [facility] [place] [address] Care Team Providers Care Family Law Paralegal Name Role Phone Poppy Wright APRN Primary Care Provider [phone] Encounter Details Date Type Department Care Team (Late st Contact Info) Description 03/17/2020 Telephone [facility] [place] [address] Dustin Blakely, RN Social History Tobacco Use Types Packs/Day Years Used Date Smoking Tobacco: Never Smokeless Tobacco: Never Sex and Gender Information Value Date Recorded Sex Assigned at Not on file Gender Identity Not on file Sexual Orientation Not on file documented as of this encounter Miscellaneous Notes * Telephone Encounter - Dustin Blakely RN - 03/17/2020 3:04 PM EST Pt called in to treating engineer helper line today stating I spoke to Alyssia Garzon RN yesterday and was told a global engineering manager would be calling me back. I am still awaiting this call. Pt was scheduled for a bilateral lumbar medial branch block on 03/13/2020 w/ Dr. Love. Pt's procedure was cancelled due to provider illness. Pt states This is the second time I have driven two hours to have my procedure cancelled once I arrive. Pt would like to speak to someone in a leadership position as soon as possible. RN explained to Pt her message will be forwarded and she will be contacted as soon as possible. Pt agreed to this plan and will await a return phone call. documented in this encounter Plan of Treatment Upcoming Encounters Date Type Department Care Team (Late st Contact Info) Description 02/12/2024 4:45 PM EST TH Visit (TeleHealth) Dermatology at [facility] [address] [place] [address] Marian Vieyra MD [facility] [address] [place] [address] documented as of this encounter Visit Diagnoses Not on filedocumented in this encounter Care Teams Family Law Paralegal Relationship Specialty Start Date End Date Poppy Wright APRN [address] [place] [address] PCP - General General Internal Medicine 05/24/19 documented as of this encounter
--- OUTSIDE RECORDS SUMMARY | 2024-01-09 01:48 | XMS_ITS | Encounter Summary ---
Author Organization [facility] [place] [address] Care Team Providers Care Magnet Placer Name Role Phone Poppy Wright APRN Primary Care Provider [phone] Reason for Visit * Auth/Cert Specialty Diagnoses / Procedures Referred By Kalin garcia Referred To Contact Diagnoses 724.6 (ICD-9-CM) - M53.3 (ICD-10-CM) - Sacral pain 724.6 (ICD-9-CM) - M53.3 (ICD-10-CM) - Sacroiliac dysfunction Procedures PRO INJECTION, SACROILIAC JOINT INJECTION PROCEDURE, SACROILIAC JOINT (WRVU 1.48) Referral ID Status Reason Start Date Expiration Date Visits Re quested Visits Authorized [id number] 1 1 Encounter Details Date Type Department Care Team (Late st Contact Info) Description 01/27/2020 2:00 PM EDT - 01/27/2020 3:15 PM EDT [place] [phone] Carlo Fernandes MD [facility] DR PHYSICAL [place] [address] INJECTION PROCEDURE, SACROILIAC JOINT (WRVU 1.48) Social History Tobacco Use Types Packs/Day Years [...] to posterior thighs PAIN LEVEL AT REST /10 PAST MEDICAL HISTORY: No past medical history [...] Operative Note Patient Name: Parisa Sears : [id number] MR#: [id number] Case Date: 01/27/2020 Surgeon: Surgeon(s) and Role: [...] PM EST TH Visit (TeleHealth) Dermatology at [facility] [address] [place] [address] Marian Vieyra MD [facility] [address] LAKSH[place] [address] documented as of this encounter Visit Diagnoses Not on filedocumented in this encounter Administered Medications Inactive Administered Medications - up to 3 most recent administrations Medication Order MAR Action Action Date Dose Rate Site iohexoL (OMNIPAQUE) 240 mg/mL solution ONCE PRN, Starting on Victoria 01/27/20 at 1424, Until Victoria 01/27/20 at 1640, Intra-Operative (Intra-Procedure), Routine Given 01/27/2020 2:24 PM EDT 3 mLs lidocaine (PF) (Xylocaine) 1% (10 mg/mL) injection ONCE PRN, Starting on Victoria 01/27/20 at 1424, Until Victoria 01/27/20 at 1640, Intra-Operative (Intra-Procedure), Routine Given 01/27/2020 2:24 PM EDT 5 mLs methylPREDNISolone acetate (DEPO-Medrol) (40 mg/mL) injection ONCE PRN, Starting on Victoria 01/27/20 at 1424, Until Victoria 01/27/20 at 1640, Intra-Operative (Intra-Procedure), Routine Given 01/27/2020 2:29 PM EDT 40 mg Given 01/27/2020 2:24 PM EDT 40 mg documented in this encounter Active and Recently Administered Medications Times are shown in EDT. PRN Medication Order 01/25/2020 01/26/2020 01/27/2020 iohexoL (OMNIPAQUE) 240 mg/mL solution (CANCELED) ONCE PRN, Starting on Victoria 01/27/20 at 1424, Until Victoria 01/27/20 at 1640, Intra-Operative (Intra-Procedure), Routine 1423 (Given - Provid er: Carlo Fernandes MD - Comment: Bilateral SIJ) lidocaine (PF) (Xylocaine) 1% (10 mg/mL) injection (CANCELED) ONCE PRN, Starting on Victoria 01/27/20 at 1424, Until Victoria 01/27/20 at 1640, Intra-Operative (Intra-Procedure), Routine 1423 (Given - Provid er: Carlo Fernandes MD - Comment: Bilateral SIJ) methylPREDNISolone acetate (DEPO-Medrol) (40 mg/mL) injection (CANCELED) ONCE PRN, Starting on Victoria 01/27/20 at 1424, Until Victoria 01/27/20 at 1640, Intra-Operative (Intra-Procedure), Routine 1424 (Given - Provid er: Carlo Fernandes MD - Comment: Left SIJ)1429 (Given - Provider: Carlo Fernandes MD - Comment: Right SIJ) documented in this encounter Care Teams Magnet Placer Relationship Specialty Start Date End Date Poppy Wright APRN [address] [place] [address] PCP - General General Internal Medicine 05/24/19 documented as of this encounter
--- OUTSIDE RECORDS SUMMARY | 2024-01-09 01:48 | XMS_ITS | Encounter Summary ---
[place] [address] Care Team Providers Care Radiagraph Operator Name Role Phone Poppy Wright APRN Primary Care Provider [phone] Encounter Details Date Type Department Care Team (Late st Contact Info) Description 11/16/2019 Telephone [facility] [place] [address] Candie Reagan Social History Tobacco Use Types Packs/Day Years Used Date Smoking Tobacco: Never Smokeless Tobacco: Never Sex and Gender Information Value Date Recorded Sex Assigned at Not on file Gender Identity Not on file Sexual Orientation Not on file documented as of this encounter Miscellaneous Notes * Telephone Encounter - Candie Reagan - 11/16/2019 10:12 AM EDT Procedure: Bilat SIJ injection MRI required? no (If yes, verify that updated MRI is in eDH) (Atlanto-Axial Joint injection, WAQAS; 1 year or <)(Caudal JU, LESI, Thoracic JU, TFESI Lumbar & Cervical; 2 years or <) Referring Provider: Dr. Fernandes Are you on any blood thinners? n/a (If yes, specify medication type and prescribing provider for anticoagulant hold request) Anticoagulant Medication Therapy Protocol Guide for Procedures: [...] Prescriber n/a Are you taking any NSAIDs? n/a Type of NSAID: Non-Steroidal Anti-Inflammatory Drug Guidelines: [...] Worker's Comp no Insurance: [employer] Completed by: Candie Reagan documented in this encounter Plan of Treatment Upcoming Encounters Date Type Department Care Team (Late st Contact Info) Description 02/12/2024 4:45 PM EST TH Visit (TeleHealth) Dermatology at [facility] [address] [place] [address] Marian Vieyra MD [facility] [address] [place] [address] documented as of this encounter Visit Diagnoses Not on filedocumented in this encounter Care Teams Radiagraph Operator Relationship Specialty Start Date End Date Poppy Wright APRN [address] [place] [address] PCP - General General Internal Medicine 05/24/19 documented as of this encounter
--- OUTSIDE RECORDS SUMMARY | 2024-01-09 01:48 | XMS_ITS | Encounter Summary ---
Author Organization [facility] [place] [address] Care Team Providers Care Coat Presser Name Role Phone Poppy Wright HUBER Primary Care Provider [phone] Reason for Visit * Auth/Cert Specialty Diagnoses [...] Expiration Date Visits Re quested Visits Authorized [id number] 1 1 Encounter Details Date Type Department Care Team (Latest Contact Info) Description 03/30/2020 9:43 AM EST - 03/30/2020 12:40 PM [facility] Hospital En[place] [address] Radha Garg MD [facility] [place] [address] Lumbar spondylosis Discharge Disposition: Home Social History Tobacco Use Types Packs/Day Years Used Date Smoking Tobacco: Never Smokeless Tobacco: Never Sex and Gender Information Value Date Recorded Sex Assigned at Not on file Gender Identity Not on file Sexual Orientation Not on file documented as of this encounter Last Filed Vital Signs Vital Sign Reading Time Taken Comments Blood Pressure 134/87 03/30/2020 12:20 PM EST Pulse - - Temperature - - Respiratory Rate 20 03/30/2020 12:20 PM EST Oxygen Saturation 99% 03/30/2020 12:20 PM EST Inhaled Oxygen Concentration - - [...] H&P Notes * Shayna Alva MD - 03/30/2020 10:41 AM EST Patient [...] file Gets together: Not on file Attends jewish service: Not on file Active member of [...] proceed. Shayna Alva MD Pain Management Fellow [address] [address] / [facility] documented in this encounter Miscellaneous Notes * Op Note - Radha Garg MD - 03/30/2020 6:06 AM EST Pain Management Operative Note Patient Name: Parisa Sears : [id number] MR#: [id number] Case Date: 03/30/2020 Surgeon: Surgeon(s) and Role: [...] procedure. Radha Garg MD Pain Management Center [employer] Anesthesiology [facility] [employer] [facility] [address] [address] / [facility] CC: No referring provider defined for this encounter. documented in this encounter Plan of Treatment Upcoming Encounters Date Type Department Care Team (Late st Contact Info) Description 02/12/2024 4:45 PM EST TH Visit (TeleHealth) Dermatology at [address] [phone] Marian Vieyra MD [facility] DR LAKSHMI [place] [address] documented as of this encounter Visit Diagnoses [...] injection (CANCELED) ONCE PRN, Starting on Victoria 12/20 at 1147, Until Victoria 12/20 at 1440, Intra-Operative (Intra-Procedure), Routine 1147 (Given - Provid er: Radha Garg MD - Comment: Bilateral lumbar RFA) lidocaine (pf) (Xylocaine) (20 mg/mL) 2% injection (CANCELED) ONCE PRN, Starting on Victoria 1224/20 at 1146, Until Victoria 12/20 at 1440, Intra-Operative (Intra-Procedure), Routine 1146 (Given - Provid er: Radha Garg MD - Comment: Bilateral lumbar RA) midazolam (pf) (Versed) (1 mg/mL) injection (CANCELED) ONCE PRN, Starting on Victoria 12/20 at 1121, Until Victoria 1220 at 1440, Intra-Operative (Intra-Procedure), Routine 1121 (Given - Provid er: Cheryl Weinstein RN)1211 (Given - Provider: Shayna Loya MD) documented in this encounter Care Teams Coat Presser Relationship Specialty Start Date End Date Poppy Wright APRN [address] [address] PCP - General General Internal Medicine 05/24/19 documented as of this encounter
--- OUTSIDE RECORDS SUMMARY | 2024-01-09 01:48 | XMS_ITS | Encounter Summary ---
Author Organization [facility] [place] [address] Care Team Providers Care Mechanical Maintenance Worker Name Role Phone Poppy Wright APRN Primary Care Provider [phone] Reason for Visit * Auth/Cert Specialty Diagnoses / Procedures Referred By Kalin garcia Referred To Contact Diagnoses 724.6 (ICD-9-CM) - M53.3 (ICD-10-CM) - Sacral pain 724.6 (ICD-9-CM) - M53.3 (ICD-10-CM) - Sacroiliac dysfunction Procedures PRO INJECTION, SACROILIAC JOINT INJECTION PROCEDURE, SACROILIAC JOINT (WRVU 1.48) Referral ID Status Reason Start Date Expiration Date Visits Re quested Visits Authorized [id number] 1 1 Encounter Details Date Type Department Care Team (Late st Contact Info) Description 12/16/2019 3:00 PM EDT Ancillary [place] [address] Carlo Fernandes MD [facility] PHYSICAL [place] [address] Pain Social History Tobacco Use Types Packs/Day [...] EST TH Visit (TeleHealth) Dermatology at [facility] [address] [place] [address] Marian Vieyra MD [facility] DR [place] [address] Pending Results Name Type Priority Associated Diagnoses Date /Time Film Library- Storage Only pain Clinic [facility] Storage Only Routine Pain 12/15/2019 8:39 AM EDT documented as of this encounter Visit Diagnoses Diagnosis Pain Generalized pain documented in this encounter Care Teams Mechanical Maintenance Worker Relationship Specialty Start Date End Date Poppy Wright APRN [address] [place] [id number] PCP - General General Internal Medicine 05/24/19 documented as of this encounter
[2024-01-09 16:03] LABS: HCT 37.9 % (36.0-46.0); HGB 12.5 g/dL (11.2-15.7); MCH 29.3 pg (27.0-33.0); MCV 89 fL (80-95); MPV 9.2 fL (8.0-11.0); Platelet Count 249 10^3/uL (130-400); RBC 4.27 10^6/uL (3.93-5.22); RDW 13.2 % (11.7-14.6); RDW-SD 42.9 fL; WBC 17.15 10^3/uL (4.4-10.8)
[2024-01-09 16:09] LABS: Glucose,1 Hr (Glucola) 125 mg/dL (80-140)
== END 2024-01-09 01:43 | disposition home or self-care (01) ==
LOC: LBO 01:46
PROVIDERS: Advanced Practice Midwife; PCP Nurse Practitioner Adult Health; Visit Provider Advanced Practice Midwife
DX: Z34.92 Encounter for supervision of normal pregnancy, unspecified, second trimester (principal)
CPT/HCPCS: 36415; 82950; 85027

== ENCOUNTER 2024-02-12 13:30 | Outpatient (CLI) | payer OTHER, SELFPAY ==
[2024-02-12 17:42] VITALS: BP 132/76; PULSE 82; TEMP 36.7
[2024-02-12 17:45] VITALS: BP 132/76; PULSE 82
--- NOTE | 2024-02-13 08:05 | W.OBNST ---
Date of service: 02/12/24 Time of Service: 18:00 NST Evaluation Reason for NST Reasons for Nonstress Test: OTHER, SEE COMMENT Reason for NST Other: mom wasn't feeling right Gestational Age Gestational Age in Weeks and Days: 32 Weeks and 3Days Test and Monitor Explained Test/Monitor Explained: Test Explained, Monitor Explained and Patient Verbalized Understanding Vital Signs Blood Pressure: 132/76 Pulse: 82 Temperature: 98.1 F Urine Results Urine Protein: Negative Urine Ketones: Negative Urine Glucose: Negative Urine Blood: Negative NST Information Date on Monitor: 02/12/24 Time on Monitor: 17:40 Date off Monitor: 02/12/24 Time off Monitor: 18:13 Total Time on Monitor: 33 NST Interventions: PO Hydration Contraction Frequency: 0 NST Evaluation Patient States Movement: Present FHR Baseline: 130 Variability: Moderate 6-25 bpm Accelerations: 15x15 Decelerations: None NST Results: Reactive Note Ultrasound Done: N/A. NST Note Note: Pt states she feels better than she was feeling earlier today No labor, nml BP F/up as scheduled NST Reviewed and Verified by: Rachelle Chahal
[2024-02-13 08:06] VITALS: BP 132/76; PULSE 82; TEMP 36.7
== END 2024-02-12 18:34 ==
LOC: BCD 13:31 → OBS 17:19
PROVIDERS: PCP Nurse Practitioner Adult Health; Visit Provider Advanced Practice Midwife
DX: O26.893 Other specified pregnancy related conditions, third trimester (principal); Z3A.32 32 weeks gestation of pregnancy
CPT/HCPCS: 59025

== ENCOUNTER 2024-03-08 18:52 | Outpatient (REF) | payer OTHER, SELFPAY | END 2024-03-08 18:53 | disposition home or self-care (01) | LOC: LBN 18:52 | PROVIDERS: PCP Nurse Practitioner Adult Health; Visit Provider Advanced Practice Midwife | DX: Z34.93 Encounter for supervision of normal pregnancy, unspecified, third trimester (principal) | CPT/HCPCS: 87081 ==

== ENCOUNTER 2024-04-11 03:20 | Inpatient (IN) | payer OTHER, SELFPAY ==
[2024-04-11] VITALS (117 sets, daily range): BP systolic 99–142; BP diastolic 56–93; PULSE 61–160; RESP 12–98; TEMP 36.5–37.1; O2SAT 90–100; BMI 32.5
[2024-04-11 03:22] LABS: ROM Plus Positive
[2024-04-11 03:50] LABS: HCT 40.6 % (36.0-46.0); HGB 13.6 g/dL (11.2-15.7); MCH 29.4 pg (27.0-33.0); MCHC 33.5 % (32.0-36.0); MCV 88 fL (80-95); MPV 9.5 fL (8.0-11.0); Platelet Count 236 10^3/uL (130-400); RBC 4.62 10^6/uL (3.93-5.22); RDW 13.7 % (11.7-14.6); RDW-SD 43.8 fL; WBC 17.48 10^3/uL (4.4-10.8)
--- NOTE | 2024-04-11 04:28 | W.PM.OBHPL1 ---
Date of service: 04/11/24 Time of Service: 04:28 Assessment and Plan Assessment and plan (1) Spontaneous onset of labor: Status: Acute Assessment and plan: Admit to Center and routine admission labs with preeclampsia panel. Comfort measures. Anticipate . OB-HPI Labor/Delivery History of Present Illness Reason for Visit: Term labor Chief Complaint: Uterine Contractions. LUCY Calculator Estimated Delivery Date Method Current WG Current Estimate 04/05/24 Ultrasound #1 40w 6d Other Estimates 04/09/24 LMP (Uncertain) 40w 2d Comments: Izzy was sleeping and awoke with leaking of a small amount of blood tinged fluid. She began having regular contractions shortly after and presents in early labor, BP 137/88 History of Present Expected Delivery Route/Plan - CNM FOB/ - Gage Acosta (first child) BB yes to circ Rubella & Varicella non-immune, offer vaccines Support team: FOB, maybe her mom Kimmie GBS negative Specific Issues/Plan 1. Desires cfDNA low risk male, CF negative/SMA negative - 2. 5P screen negative, PHQ9 score=3 3. [facility] level 2 & MFM consult d/t pt's mother's hx cardiac issue- Normal anatomy 4. PAP done at [facility] 08/03/20=nml PFS All Active Problems (Updated 04/11/24 @ 04:31 by Soo Meek CNM) Spontaneous onset of labor (Acute) Susceptible to varicella (non-immune), currently (Acute) Rubella non-immune status, antepartum (Acute) Chronic low back pain (Chronic) (Acute) Medical History (Updated 04/11/24 @ 04:31 by Soo Meek CNM) Family history of congenital septal defect pt's mother Family history of thyroid disease pt's father's sister No pertinent past medical history Surgical History No pertinent past surgical history Social History Smoking/Tobacco Use Status: Never Second Hand Exposure: No Smoking risk assessment performed?: Yes Alcohol Intake: current Drug use: Never Substance use type: does not use Household members: spouse Housing: house current occupation: Compensation Sexually active: Yes Current gender identity: female What is your relationship status?: Panel score (0-1 are the most socially isolated patients): 1 What type of physical activity do you participate in: regular exercise Duration: 30-45 minutes/day Frequency: 3-4 times per week Seatbelt use: always Helmet use: Yes Drive intox or ride w/intox class a regional drivers: No Do you feel safe at home: Yes Do you feel safe in your relationship?: Yes Female Reproductive History Menstrual Age of Menarche: 14 Duration of menses: 3-5 days control method: none History History 1 Para 0 Hx # Term Pregnancies 0 Multiple births 0 Hx # Pregnancies 0 Ectopic pregnancies 0 AB induced 0 Hx Number of Living Children 0 AB spontaneous 0 Meds Allergies and Home Medications Allergies Allergy/AdvReac Type Severity Reaction Status Date / Time raspberry AdvReac Mild Diarrhea Verified 04/06/24 11:04 coffee AdvReac Mild Diarrhea Uncoded 04/06/24 11:04 Home Medications ?Medication ?Instructions ?Recorded ?Confirmed ?Type cetirizine 10 mg capsule (Zyrtec) 10 mg PO DAILY 08/04/23 04/11/24 History vitamins no.121-iron 28 1 tab PO .every other day 08/26/23 04/11/24 History mg-folic acid 800 mcg tablet erythromycin with ethanol 2 % 1 applic topical ONCE PRN 01/09/24 04/11/24 History topical gel ferrous sulfate 325 mg (65 mg 325 mg PO DAILY 04/11/24 04/11/24 History iron) tablet (iron) Exam Physical Exam Vital signs: Temp Pulse BP 98.4 F 88 137/88 04/11/24 03:29 04/11/24 03:29 04/11/24 03:29 Vital Signs Reviewed: Yes Constitutional Constitutional: no acute distress Detailed Labor and Delivery Exam Dilation: 3 Effacement (%): 80 station: -2 Cervix position: posterior Consistency: soft Laws Score: Cervical Points Exam 0 1 2 3 Dilation Closed 1-2cm 3-4 cm 5-6cm Effacement 0-30% 40-50% 60-70% 80% Consistency Firm Medium Soft Station -3 -2 -1,0 +1,+2 Position Posterior Mid Anterior Amniotic Membrane Status: Ruptured Amniotic Fluid: Clear ROM Plus: Positive Monitor Mode: External Contraction Frequency(min): every 2-3 Contraction Duration(sec): 50 Contraction Intensity: Moderate Comments: exam by jorge GRIJALVA Fetus A Heart Rate Baseline: 125 Monitor Accelerations: 15 X 15 Monitor Decelerations: None Variability: Moderate (6-25 BPM) Presentation: Cephalic Categories: Category I Date of Membrane Rupture: 04/10/24 Time of Membrane Rupture: 23:40 Neck Exam Neck Exam: Normal Respiratory Exam Respiratory Exam: Normal Cardiovascular Exam Cardiovascular Exam: Normal Exam Exam: Normal Extremities Exam Extremities Exam: Normal Skin Exam Skin Exam: Normal Psychiatric Exam Psychiatric Exam: Normal Results Results Group Beta Strep: Negative Blood Type: A+ Rubella Status: Nonimmune Varicella Immunity: Nonimmune Abnormal Lab Findings: Abnormal Labs 04/11/24 03:35 WBC 17.48 H Risk Assessment Risk for Shoulder Dystocia Historical/Initial OB: NEGATIVE FOR: Pelvic Abnormality, Pre- BMI>30, Previous Shoulder Dystocia or Previous Macrosomia 36 Weeks: NEGATIVE FOR: Current Gestational DM, EFW>4500gms or Maternal Weight Gain>40lbs 40 Weeks: NEGATIVE FOR: EFW> 4500 gms, Maternal Weight Gain >40lb or Post Dates Risk for Pre-Eclampsia Date Initiated/Initials: not indicated. JK Yes, if one or more: NEGATIVE FOR: Hx Pre-E/Gest HTN, Chronic HTN, Multiple Gestation, Pre-gestational DM, Renal Disease, Systemic Lupus or APA Syndrome Yes, if 2 or more: POSITIVE FOR: Nulliparity; NEGATIVE FOR: Age>= 35 yrs, >10yr btwn pregnancies, BMI>30, ethinicty, Mother/Sister w/ Pre-E or Previous IUGR Risk for Post- Hemorrhage Initial: NEGATIVE FOR: Multiple Gestation, Previous PPH, Known Clotting Deficiency, Grand Multiparity or Anticoagulation 36 Weeks: NEGATIVE FOR: Anemia, hgb<10, Low platelets(thrombocytopenia), Gestational HTN or Pre-E, Polyhydraminios or EFW>4500gms 40 Weeks: NEGATIVE FOR: Anemia, hgb<10, Low platelets (thrombocytopenia), Gestation HTN or Pre-E, Polyhydraminios or EFW>4500gms At Risk?: No Risks Reviewed Risks Reviewed Upon Admission: No
--- NOTE | 2024-04-11 04:43 | W.OBNST ---
Date of service: 04/11/24 Time of Service: 04:43 NST Evaluation Reason for NST Reasons for Nonstress Test: OTHER, SEE COMMENT Reason for NST Other: Labor check Gestational Age Gestational Age in Weeks and Days: 40 Weeks and 6Days Test and Monitor Explained Test/Monitor Explained: Test Explained, Monitor Explained and Patient Verbalized Understanding Urine Results Urine Protein: Negative Urine Ketones: Negative Urine Glucose: Negative Urine Blood: Positive NST Information Date on Monitor: 04/11/24 Time on Monitor: 03:01 Date off Monitor: 04/11/24 Time off Monitor: 03:27 Total Time on Monitor: 26 NST Interventions: None Contraction Frequency: 1-3 NST Evaluation Patient States Movement: Present FHR Baseline: 120 Variability: Moderate 6-25 bpm Accelerations: 15x15 Decelerations: None NST Results: Reactive Note Ultrasound Done: N/A. NST Note Note: Parisa presented with painful contractions and leaking clear blood tinged fluid. NST reactive. Admitted in early labor. NST Reviewed and Verified by: Soo Meek
[2024-04-11 04:56] LABS: ALT 33 U/L (14-59); AST 22 U/L (15-37); Alkaline Phosphatase 121 U/L (46-116); Anion Gap 7.7 mmol/L (3-11); BUN 5 mg/dL (7-18); Bilirubin, Total 0.32 mg/dL (0.2-1.0); CO2 25.3 mmol/L (21.0-32.0); CREATININE 0.6 mg/dL (0.55-1.02); Calcium 9.2 mg/dL (8.5-10.1); Chloride 105 mmol/L (98-107); Estimated GFR 126.87 (mL/min/1.73m2); Glucose 84 mg/dL (74-106); LDH 186 U/L (81-234); Potassium 3.8 mmol/L (3.5-5.1); Sodium 138 mmol/L (136-145); Total Protein 6.9 g/dL (6.4-8.2); Uric Acid 3.9 mg/dL (2.6-6.0)
--- NOTE | 2024-04-11 06:53 | W.PM.OBNL1 ---
Date of service: 04/11/24 Time of Service: 06:53 Pelvic Exam Dilation: 2 Effacement (%): 90 station: -1 Cervix Position: posterior Consistency: soft Vaginal Exam Presentation: Cephalic Contractions Monitor Mode: External Contraction Frequency(min): every 3 min Contraction Duration(sec): 60 Intensity: Moderate/Strong Fetus A Monitor: External (US) Heart Rate Baseline: 125 Presentation: Vertex Variability: Moderate (6-25 BPM) Categories: Category I FHR Rhythm: Regular Accelerations: 15 X 15 Decelerations: None Assessment and Plan Assessment and plan (1) Spontaneous onset of labor: Status: Acute Assessment and plan: Trina Jaimes CRNA paged for epidural. position changes for comfort and anticipate . Objective Abnormal lab results 04/11/24 Range/Units 03:35 WBC 17.48 H (4.4-10.8) 10^3/uL BUN 5 L (7-18) mg/dL Alkaline Phosphatase 121 H (46-116) U/L Albumin 3.0 L (3.4-5.0) g/dL Temp Pulse BP 97.7 F 85 137/93 H 04/11/24 06:18 04/11/24 06:18 04/11/24 06:18 Laboratory Results WBC 17.48 10^3/uL (4.4-10.8) H 04/11/24 03:35 RBC 4.62 10^6/uL (3.93-5.22) 04/11/24 03:35 Hgb 13.6 g/dL (11.2-15.7) 04/11/24 03:35 Hct 40.6 % (36.0-46.0) 04/11/24 03:35 MCV 88 fL (80-95) 04/11/24 03:35 MCH 29.4 pg (27.0-33.0) 04/11/24 03:35 MCHC 33.5 % (32.0-36.0) 04/11/24 03:35 RDW 13.7 % (11.7-14.6) 04/11/24 03:35 Plt Count 236 10^3/uL (130-400) 04/11/24 03:35 MPV 9.5 fL (8.0-11.0) 04/11/24 03:35 Sodium 138 mmol/L (136-145) 04/11/24 03:35 Potassium 3.8 mmol/L (3.5-5.1) 04/11/24 03:35 Chloride 105 mmol/L (98-107) 04/11/24 03:35 Carbon Dioxide 25.3 mmol/L (21.0-32.0) 04/11/24 03:35 Anion Gap 7.7 mmol/L (3-11) 04/11/24 03:35 BUN 5 mg/dL (7-18) L 04/11/24 03:35 Creatinine 0.6 mg/dL (0.55-1.02) 04/11/24 03:35 Est GFR (CKD-EPI 2020) 126.87 (mL/min/1.73m2) 04/11/24 03:35 Glucose 84 mg/dL (74-106) 04/11/24 03:35 Uric Acid 3.9 mg/dL (2.6-6.0) 04/11/24 03:35 Calcium 9.2 mg/dL (8.5-10.1) 04/11/24 03:35 Total Bilirubin 0.32 mg/dL (0.2-1.0) 04/11/24 03:35 AST 22 U/L (15-37) 04/11/24 03:35 ALT 33 U/L (14-59) 04/11/24 03:35 Alkaline Phosphatase 121 U/L (46-116) H 04/11/24 03:35 Lactate Dehydrogenase 186 U/L (81-234) 04/11/24 03:35 Total Protein 6.9 g/dL (6.4-8.2) 04/11/24 03:35 Albumin 3.0 g/dL (3.4-5.0) L 04/11/24 03:35 Membranes Rupture Positive 04/11/24 02:55 ABO/Rh A Positive 04/11/24 03:35 Antibody Screen NEGATIVE 04/11/24 03:35 Vital Signs Reviewed: Yes Subjective Patient Reports: New Complaints Interval history since last seen: Parisa reports that contractions are stronger now and she is using nitrous oxide for pain. She requests an epidural for pain relief. Results Hemoglobin/Hematocrit: Hgb 13.6 g/dL (11.2-15.7) 04/11/24 03:35 Hct 40.6 % (36.0-46.0) 04/11/24 03:35 Abnormal Lab Findings: Abnormal Labs 04/11/24 03:35 WBC 17.48 H BUN 5 L Alkaline Phosphatase 121 H Albumin 3.0 L
--- NOTE | 2024-04-11 06:54 | ANES.PREOP_ITS ---
General Info Date of Service Date Performed: 04/11/24 Height: 5 ft 6 in Weight: 91.626 kg Body Mass Index (BMI): 32.5 Surgical Procedure: labor epidural Meds Allergies and Home Medications Allergies Allergy/AdvReac Type Severity Reaction Status Date / Time raspberry AdvReac Mild Diarrhea Verified 04/06/24 11:04 coffee AdvReac Mild Diarrhea Uncoded 04/06/24 11:04 Home Medication ?Medication ?Instructions ?Recorded cetirizine 10 mg capsule (Zyrtec) 10 mg PO DAILY 08/04/23 vitamins no.121-iron 28 1 tab PO .every other day 08/26/23 mg-folic acid 800 mcg tablet erythromycin with ethanol 2 % 1 applic topical ONCE PRN 01/09/24 topical gel ferrous sulfate 325 mg (65 mg 325 mg PO DAILY 04/11/24 iron) tablet (iron) Current Visit Medications: Current Medications Generic Name Dose Route Start Last Admin Trade Name Freq PRN Reason Stop Dose Admin Fentanyl/Ropivacaine 200 ml 04/11/24 06:30 Fentanyl/Ropivacaine 2 Mcg/Ml And 0.1% 200 Ml Cadd Cassette EP DIRECTED BEAR IV Miscellaneous Supplies 1 each 04/11/24 03:30 Iv Access IV DIRECTED BEAR Sodium Chloride 0 ml 04/11/24 03:20 Normal Saline Flush 10 Ml Syr IVP PRN PRN Sodium Chloride 0 ml 04/11/24 08:30 Normal Saline Flush 10 Ml Syr IVP BID BEAR Sodium Chloride 0 ml 04/11/24 03:20 Normal Saline 10 Ml Vial IJ DIRECTED PRN PFSH Active Problems Active Problems: Problem Status Onset Code Spontaneous onset of labor Acute Susceptible to varicella (non-immune), currently Acute O09.899, Z28.39 Rubella non-immune status, antepartum Acute O09.899, Z28.39 Chronic low back pain Chronic M54.50, G89.29 Acute Z34.90 Medical History Medical History (Updated 04/11/24 @ 04:31 by Soo Meek CNM) Family history of congenital septal defect pt's mother Family history of thyroid disease pt's father's sister No pertinent past medical history Surgical History Surgical History No pertinent past surgical history Tobacco Smoking/Tobacco Use Status: Never Passive smoking exposure: No Second hand exposure: No Alcohol Alcohol Intake: current Substance Use Substance use: Never Substance use type: does not use Prental History History 2 1 Para 0 Hx # Term Pregnancies 0 Multiple births 0 Hx # Pregnancies 0 Ectopic pregnancies 0 AB induced 0 Hx Number of Living Children 0 AB spontaneous 0 Vital Signs and Lab Results Vital Signs Most Recent Vital Signs in EMR: Most Recent Vital Signs Temp Pulse BP 36.5 C 85 137/93 H 04/11/24 06:18 04/11/24 06:18 04/11/24 06:18 Lab Results 04/11/24 03:35 04/11/24 03:35 Blood Type / Crossmatch: 2 Antibody Screen NEGATIVE 04/11/24 Complete Blood Count: 2 White Blood Count 17.48 10^3/uL (4.4-10.8) H 04/11/24 03:35 Red Blood Count 4.62 10^6/uL (3.93-5.22) 04/11/24 03:35 Hemoglobin 13.6 g/dL (11.2-15.7) 04/11/24 03:35 Hematocrit 40.6 % (36.0-46.0) 04/11/24 03:35 Platelet Count 236 10^3/uL (130-400) 04/11/24 03:35 Complete Metabolic Panel: 2 Sodium 138 mmol/L (136-145) 04/11/24 03:35 Potassium 3.8 mmol/L (3.5-5.1) 04/11/24 03:35 Chloride 105 mmol/L (98-107) 04/11/24 03:35 Carbon Dioxide 25.3 mmol/L (21.0-32.0) 04/11/24 03:35 BUN 5 mg/dL (7-18) L 04/11/24 03:35 Creatinine 0.6 mg/dL (0.55-1.02) 04/11/24 03:35 Est GFR (CKD-EPI 2020) 126.87 (mL/min/1.73m2) 04/11/24 03:35 Calcium 9.2 mg/dL (8.5-10.1) 04/11/24 03:35 Albumin 3.0 g/dL (3.4-5.0) L 04/11/24 03:35 Glucose 84 mg/dL (74-106) 04/11/24 03:35 Liver Function Panel: 2 Alanine Aminotransferase (ALT/SGPT) 33 U/L (14-59) 04/11/24 03: 35 Aspartate Amino Transf (AST/SGOT) 22 U/L (15-37) 04/11/24 03:35 Coagulation Panel: 2 No Data to Display Cardiac Panel: 2 No Data to Display Arterial Blood Gas: 2 No Data to Display Venous Blood Gas: 2 No Data to Display Pancreas Panel: 2 No Data to Display Thyroid Panel: 2 No Data to Display Infectious Disease: 2 No Data to Display Blood Cultures: 2 No Data to Display Toxicology Panel: 2 No Data to Display Panel: 2 No Data to Display Anesthesia Assessment and Plan Anesthesia History Personal History: No History of General Anesthesia Family History: No Family History of Anesthesia Complications Exercise Tolerance Exercise Tolerance: Metabolic Equivalents>4 Pertinent Negatives Pertinent Negatives: No Major Cardiovascular Symptoms or Complaints and No Major Pulmonary Symptoms or Complaints Cardiac & Pulmonary Exam Cardiac Exam: Normal S1/S2 Heart Sounds Pulmonary Exam: Clear Bilateral Breath Sounds Implantable Cardiac Device Does patient have a Pacemaker or an ICD?: No Airway Exam Known Difficult Airway: No Mallampati Class: 2 Mouth Opening: Normal (> 3cm) Thyromental Distance: Greater than 3 cm Neck Range of Motion: Full ROM Neck Circumference: Normal Teeth Condition: Normal Dentition ASA Classification ASA Score: ASA 2 Emergency Case?: No NPO Status NPO Status: NPO Clears >2 hours, Solids >8 hours Status Status: Confirmed Anesthesia Plan Resuscitation Status: Full Code Anesthesia Technique: Labor Epidural Airway Planned: Natural Airway Monitors Used: Standard Monitors
[2024-04-11 07:19] LABS: Lab Add On Test DONE
[2024-04-11] MEDS: fentaNYL 100 MCG/2 ML VIAL EP (07:51)
[2024-04-11] MEDS: Bupivacaine 0.25% Pres-Free 10 ML VIAL EP (07:51)
[2024-04-11] MEDS: FentaNYL/ROPIvacaine 2 mcg/ml and 0.1% 200 ML CADD Cassette EP (07:52)
--- NOTE | 2024-04-11 08:51 | W.ANESNEU ---
Epidural/Spinal Catheter Date Performed: 04/11/24 Procedure Start: 07:22 Procedure Stop: 07:50 Requesting Provider: Soo Meek Procedure Location: Obstetrics Reason Performed: Labor Epidural Standard Monitors Applied: Blood Pressure, SpO2 and See EMR for corresponding vital signs Patient Position: Sitting Sedation Given (Indicate Dose Given): No Sedation given Patient Mental Status: Awake Sterility: Hand Hygiene, Surgical Cap, Surgical Mask, Sterile Gloves, Sterile Drape/Sheet and Chlorhexidine Procedure Location: L2-L3 Interspace Epidural Needle: Tuohy 18 Gauge Needle Length: 3.5 Inch Needle Approach: Midline Epidural Procedure: Skin Prepped, Sterile Drape Placed, 1% Lidocaine to skin and subcutaneous tissue with 25G needle, Tuohy Needle placed, KENNY to Saline Used, Epidural Catheter Placed, Negative Heme, Negative CSF Flow and Tuohy Needle Removed Catheter Placed?: Catheter Placed Test Dose (Indicate Dose Given): 3ml 1.5% Lidocaine with 1:200K Epinephrine Given and Negative Test Dose Loss of Resistance Depth (cm): 6 Catheter depth at skin (cm): 12 Dressing: [place] Dressing Placed and Mastisol Used Epidural Provider Bolus (Indicate Dose Given): Total bolus dose given in 3-5 ml divided doses and Total Bupivacaine 0.25% Given (ml) Dose:: 5 ml Additives (Indicate Dose Given ): Fentanyl PF Dose:: 100 mcg Infusion Medication: Medication Infusion Began (infusion started at 0746, instructed on PCEA dose) Medication Infusion: Ropivacaine 0.1% with Fentanyl 2mcg/ml Maintenance Infusion Rate (ml/hour): 10 PCEA Bolus Dose (ml): 5 Post Procedure Pain score (0-10): 0 Block Level: N/A Paresthesia: None Ultrasound: Not Used Number of Attempts (See previous attempts in note section): 2 Procedure Tolerated: No Complications and Patient tolerated well Procedure Outcome: Successful Procedure Comment:: First attempt at L4-5, successful at L2-3. Performed By: Eileen Jaimes
--- NOTE | 2024-04-11 11:18 | W.PM.OBNL1 ---
Date of service: 04/11/24 Time of Service: 11:18 Informed Consent Informed Consent: Augmentation of Labor Pelvic Exam Dilation: 3 Effacement (%): 90 station: -2 Cervix Position: posterior Consistency: soft Vaginal Exam Presentation: Cephalic Contractions Monitor Mode: External Contraction Frequency(min): evry 5-7 Contraction Duration(sec): 60 Intensity: Moderate Fetus A Monitor: External (US) Heart Rate Baseline: 115 Presentation: Cephalic Variability: Moderate (6-25 BPM) Categories: Category I Accelerations: 15 X 15 Decelerations: None Amniotic Membrane Status: Ruptured Amniotic Fluid: Meconium Amount: AROM performed at 0753 for large amount of mod meconium stained fluid. Assessment and Plan Assessment and plan (1) Prolonged latent phase of labor: Status: Acute Assessment and plan: Discussed prolonged latent phase of labor and augmentation of labor. Parisa and Gage agree at this time. We also discussed IUPC to monitor labor progress and she agrees. Will start labor augmentation per protocol and consider IUPC. Objective Abnormal lab results 04/11/24 Range/Units 03:35 WBC 17.48 H (4.4-10.8) 10^3/uL BUN 5 L (7-18) mg/dL Alkaline Phosphatase 121 H (46-116) U/L Albumin 3.0 L (3.4-5.0) g/dL Temp Pulse Resp BP Pulse Ox 97.9 F 72 12 123/71 98 04/11/24 10:16 04/11/24 10:16 04/11/24 10:16 04/11/24 10:16 04/11/24 10:16 Laboratory Results WBC 17.48 10^3/uL (4.4-10.8) H 04/11/24 03:35 RBC 4.62 10^6/uL (3.93-5.22) 04/11/24 03:35 Hgb 13.6 g/dL (11.2-15.7) 04/11/24 03:35 Hct 40.6 % (36.0-46.0) 04/11/24 03:35 MCV 88 fL (80-95) 04/11/24 03:35 MCH 29.4 pg (27.0-33.0) 04/11/24 03:35 MCHC 33.5 % (32.0-36.0) 04/11/24 03:35 RDW 13.7 % (11.7-14.6) 04/11/24 03:35 Plt Count 236 10^3/uL (130-400) 04/11/24 03:35 MPV 9.5 fL (8.0-11.0) 04/11/24 03:35 Sodium 138 mmol/L (136-145) 04/11/24 03:35 Potassium 3.8 mmol/L (3.5-5.1) 04/11/24 03:35 Chloride 105 mmol/L (98-107) 04/11/24 03:35 Carbon Dioxide 25.3 mmol/L (21.0-32.0) 04/11/24 03:35 Anion Gap 7.7 mmol/L (3-11) 04/11/24 03:35 BUN 5 mg/dL (7-18) L 04/11/24 03:35 Creatinine 0.6 mg/dL (0.55-1.02) 04/11/24 03:35 Est GFR (CKD-EPI 2020) 126.87 (mL/min/1.73m2) 04/11/24 03:35 Glucose 84 mg/dL (74-106) 04/11/24 03:35 Uric Acid 3.9 mg/dL (2.6-6.0) 04/11/24 03:35 Calcium 9.2 mg/dL (8.5-10.1) 04/11/24 03:35 Total Bilirubin 0.32 mg/dL (0.2-1.0) 04/11/24 03:35 AST 22 U/L (15-37) 04/11/24 03:35 ALT 33 U/L (14-59) 04/11/24 03:35 Alkaline Phosphatase 121 U/L (46-116) H 04/11/24 03:35 Lactate Dehydrogenase 186 U/L (81-234) 04/11/24 03:35 Total Protein 6.9 g/dL (6.4-8.2) 04/11/24 03:35 Albumin 3.0 g/dL (3.4-5.0) L 04/11/24 03:35 Membranes Rupture Positive 04/11/24 02:55 Add-On Test Request DONE 04/11/24 03:35 ABO/Rh A Positive 04/11/24 03:35 Antibody Screen NEGATIVE 04/11/24 03:35 Subjective Patient Reports: No new Complaints Interval history since last seen: Parisa has rested but has not slept. Results Hemoglobin/Hematocrit: Hgb 13.6 g/dL (11.2-15.7) 04/11/24 03:35 Hct 40.6 % (36.0-46.0) 04/11/24 03:35 Abnormal Lab Findings: Abnormal Labs 04/11/24 03:35 WBC 17.48 H BUN 5 L Alkaline Phosphatase 121 H Albumin 3.0 L
[2024-04-11] MEDS: Oxytocin/Normal Saline 30 UNIT/500 ML BAG 2 UNITS IV (11:47)
--- NOTE | 2024-04-11 17:46 | W.OBDELIVERY ---
Date of service: 04/11/24 Time of Service: 17:46 OB Labor/ Delivery Information Baby A Delivery Delivery Method: Spontaneaous Presentation: Cephalic Cephalic Position: Vertex Vertex Position: Right Occipital Anterior Cord Description-Baby A: 3 Vessels Cord Description Comment: loose nuchal cord x 1 Amniotic Fluid: Meconium Estimated Blood Loss: 400 Delivery Outcome: Liveborn Infant Transferred: Remains with Mother Note: Parisa progressed rapidly after pitocin was started and began to experience an urge to push. She was examined and was 10 cms dilated and + 2 station. FHTs 115- 120 during first stage of labor. FHTs 115-120 in second stage. She began pushing well. Second stage huddle was done. Spontaneous delivery of infant delivered in ASTRID position with compound presentation. Posterior hand and anterior nuchal arm delivered with the head. Baby was placed on mother's abdomen and dried and stimulated. Spontaneous cry. Cord was clamped and cut by the baby's father . The placenta delivered spontaneously and appears to by intact with a three vessel cord. Pitocin 30 units IV was administered with delivery of the placenta. The perineum was inspected and a deep vaginal laceration was repaired. The baby did breastfeed. After delivery, Mother and baby and father of the baby were stable and bonding well in the delivery room and there were no complications. Providers Nurse Management Analyst: Soo Meek Shift Stacker: Eileen Jaimes Cook Helper Vegetable: Sinai Barrera Nurse: Yary English Nurse: Arie Melvin Labor/Delivery Information Number of Babies in Womb: 1 Steroids Given: None Reason Steroids Not Administered: N/A Group Beta Strep: Negative Antibiotics Administered: No Rubella Status: Nonimmune Blood Type: A+ Varicella Immunity: Nonimmune Maternal Complications: None Shoulder Dystocia: No Stages of Labor Onset of Labor Date: 04/11/24 Onset of Labor Time: 07:00 Complete Dilatation Date: 04/11/24 Complete Dilatation Time: 13:15 Labor - Stage 1 Duration: 6 hours and 15 minutes ROM Baby A: 04/11/24 ROM Baby A: 08:00 ROM Total Time- Baby A: [id number] Infant Delivery Date-Baby A: 04/11/24 Infant Delivery Time-Baby A: 14:30 Labor Stage 2 Duration: 1 hours and 15 minutes Placenta Delivery Date-Baby A: 01/05/25 Placenta Delivery Time-Baby A: 14:45 Labor-Stage 3 Duration: 15 minutes Total Length of Labor-Baby A: 7 hours and 30 minutes Placenta Cultured: No Placenta Status: Delivered Baby A Infant Gender: Male Gestational Status: Term (39-41.6 wks) Gestational Age in Weeks/Days: 40 Weeks and 6 Days weight: 8 lb 5.512 oz Length-Baby A: 21.46 in Head Circumference-Baby A: 13.58 in Score-1 Minute Interval(Baby A) Heart Rate-1 minute: 100 BPM or Greater Respiratory Effort- 1 minute: Spontaneous/Strong Cry Muscle Tone-1 minute: Active Movement Reflex Response-1 minute: Prompt Response Color-1 minute: Bluish Hands or Feet Total Score-1 minute: 9 Score-5 Minute Interval(Baby A) Heart Rate- 5 minute: 100 BPM or Greater Respiratory Effort-5 minute: Spontaneous/Strong Cry Muscle Tone-5 minute: Active Movement Reflex Response-5 minute: Prompt Response Color-5 minute: Bluish Hands or Feet Total Score- 5 minute: 9 Interventions Repair of Laceration Type: Other (vaginal), Laceration Extension: First Degree. Sponge Count Correct: Yes, Sharp Count Correct: Yes. Laceration Repair Note: deep vaginal laceration were bleeding and were repaired with 2 interrupted 2-0 vicryl sutures and vaginal laceration repaired with 3-0 vicryl rapide under epidural analgesia
[2024-04-11] MEDS: Docusate Sodium 100 MG CAP PO (18:05)
[2024-04-11] MEDS: Acetaminophen 325 MG TAB 650 MG PO ×2 (18:05→22:02)
[2024-04-11] MEDS: Ibuprofen 600 MG TAB PO (18:05)
[2024-04-11] MEDS: Sodium Citrate 30 ML CUP (18:06)
[2024-04-11] MEDS: Normal Saline Flush 10 ML SYR IVP (22:02)
[2024-04-11] MEDS: Dibucaine 1% 28 GM TUBE TP (22:02)
[2024-04-11] MEDS: Hamamelis Leaf/Glycerin 100 EACH BOX PR (22:03)
[2024-04-12] MEDS: Ibuprofen 600 MG TAB PO ×4 (01:08→19:48)
[2024-04-12 01:15] VITALS: BP 139/90; PULSE 88; TEMP 36.4
[2024-04-12 02:15] VITALS: BP 116/60; PULSE 72
[2024-04-12] MEDS: Acetaminophen 325 MG TAB 650 MG PO ×4 (04:49→19:48)
[2024-04-12 06:48] VITALS: BP 135/77; PULSE 82; TEMP 36.9
[2024-04-12] MEDS: Docusate Sodium 100 MG CAP PO (08:11)
[2024-04-12 08:23] VITALS: BP 123/81; PULSE 81; RESP 18; TEMP 36.8; O2SAT 99
--- NOTE | 2024-04-12 09:54 | W.ANESPOSTOP ---
Postoperative Evaluation Date, Time and Location Date Performed: 04/12/24 Time Performed: 09:54 Patient Location: Obstetrics Vital Signs Most Recent Imported Vital Signs: Most Recent Vital Signs Temp Pulse Resp BP Pulse Ox 36.8 C 81 18 123/81 99 04/12/24 08:23 04/12/24 08:23 04/12/24 08:23 04/12/24 08:23 04/12/24 08:23 Assessment Mental Status: Awake (Alert & Oriented to Patient Baseline) Airway and Respiratory Function: Patent airway with normal (patient baseline) respiratory exam Cardiovascular Function: Hemodynamically Stable Hydration Status: Adequately Hydrated Nausea & Vomiting: No Nausea or Vomiting Pain: Pain is tolerable per patient Peripheral Nerve Block: Patient did not receive a nerve block
--- NOTE | 2024-04-12 14:31 | W.PM.OBPNV1 ---
Date of service: 04/12/24 Time of Service: 14:31 Assessment and Plan Assessment and plan (1) Term of male : Status: Acute Assessment and plan: Caring for baby independently. Pain is managed well with oral analgesics. Voiding without difficulty. well. A - stable mother and baby , Post day 1 P - Discharge to home tomorrow. Routine post instructions. [facility] Subjective Subjective Patient comments: No complaints Patient's Mood: good [place] baby status: Doing well feeding status: Exclusively breast feeding Exam Physical Exam Vital signs: Temp Pulse Resp BP Pulse Ox 98.2 F 81 18 123/81 99 04/12/24 08:23 04/12/24 08:23 04/12/24 08:23 04/12/24 08:23 04/12/24 08:23 Vital Signs Reviewed: Yes Constitutional Constitutional: no acute distress HEENT Exam HEENT Exam: Normal Neck Exam Neck Exam: Normal Cardiovascular Exam Cardiovascular Exam: Normal Fundal Exam Fundus: Below Umbilicus and Firm Exam Perineum: Edematous External: Present swelling Extremities Exam Extremity Exam: Normal Skin Exam Skin Exam: Normal Psychiatric Exam Psychiatric Exam: Normal Results Hemoglobin/Hematocrit: Hgb 13.6 g/dL (11.2-15.7) 04/11/24 03:35 Hct 40.6 % (36.0-46.0) 04/11/24 03:35 Abnormal Lab Findings: Abnormal Labs 04/11/24 03:35 WBC 17.48 H BUN 5 L Alkaline Phosphatase 121 H Albumin 3.0 L
[2024-04-12] MEDS: Measles, Mumps, & Rubella Vaccine 0.5 ML VIAL SC (15:08)
[2024-04-12] MEDS: Varicella Virus Vaccine (Live) 0.5 ML SC (15:31)
[2024-04-12 21:00] VITALS: BP 90/59; PULSE 76; TEMP 36.8
[2024-04-13] MEDS: Acetaminophen 325 MG TAB 650 MG PO ×3 (01:33→13:58)
[2024-04-13] MEDS: Ibuprofen 600 MG TAB PO ×3 (01:33→13:58)
[2024-04-13 07:30] VITALS: BP 114/75; PULSE 83; RESP 16; TEMP 37.3; O2SAT 99
[2024-04-13] MEDS: Docusate Sodium 100 MG CAP PO (07:31)
[2024-04-13] MEDS: Dibucaine 1% 28 GM TUBE TP (07:32)
[2024-04-13] MEDS: Hamamelis Leaf/Glycerin 100 EACH BOX PR (07:32)
--- NOTE | 2024-04-13 11:35 | DSE_ITS ---
Date of service: 04/13/24 Time of Service: 11:35 DS: Diagnosis Discharge Diagnosis (1) Term of male : Status: Acute Asessment and Plan: A: PPD2, VSS P: Discharge to home, routine discharge teaching done. (2) Lactating mother: Status: Acute Discharge Plan Disposition Patient Disposition: Home Condition: Good Discharge Details Reason For Visit: Term labor Admit Date/Time: 04/11/24 03:20 Admit Provider: Soo Meek Attending Provider: Soo Meek Primary Care Provider: Poppy Wright Hospital Course Hospital Course: Patient with spontaneous labor, augmentation with Pitocin and fast delivery. Normal course. Home Meds and New Rx's Prescriptions: No Action PNV no.[id number] acid 28 mg iron- 800 mcg tablet 1 tab PO .every other day Zyrtec 10 mg capsule 10 mg PO DAILY erythromycin with ethanol 2 % gel 1 applic topical ONCE PRN Patient Comments: APPLY TOPICALLY TWICE DAILY TO AFFECTED AREA ON FACE ferrous sulfate [iron] 325 mg (65 mg iron) tablet 325 mg PO DAILY Discharge Instructions Additional Instructions: Please keep your 2/6wk PP appointments with the Midwives. [facility] to [facility] 8wk IUD [facility]. Stand Alone Forms: BC Instructions, BC Post Vaginal Deliver Activity:: Activity as Tolerated Equipment/Supplies:: No Equipment Needed Diet:: Normal Diet Discharge Data Discharge Date/Time-TO BE ENTERED AT DEPARTURE: 04/13/24 11:45 OB:DS Summary Summary Vaginal Delivery Method: Spontaneaous Laceration Description: Other (vaginal) Laceration Extension: First Degree [place] Gender-Baby A: Male weight: 8 lb 5.512 oz Quality:SDOH Health Related Social Needs: No Data to Display Exam Physical Exam Vital signs: Temp Pulse Resp BP Pulse Ox 99.1 F 83 16 114/75 99 04/13/24 07:30 04/13/24 07:30 04/13/24 07:30 04/13/24 07:30 04/13/24 07:30 Vital Signs Reviewed: Yes Constitutional Constitutional: no acute distress Neck Exam Neck Exam: Normal Breast Exam Bilateral: Breast Exam: Normal and Soft Nipple Exam: Normal and Uninjured Comments: colostrum visualized, infant latching well Respiratory Exam Respiratory Exam: Normal Cardiovascular Exam Cardiovascular Exam: Normal Abdominal Exam Abdomen: Diastasis (2 FB) Fundal Exam Fundus: Below Umbilicus (2FM, firm) and Firm Rectal Exam Rectal Exam: Not Done Exam Perineum: Bruising and Edematous (mildly) External: Present swelling (mild erythema) Comments: sutures intact, vaginal brusing and tender to palpation, no hematoma noted Extremities Exam Extremity Exam: Normal Neurological Exam Neurological Exam: Normal Psychiatric Exam Psychiatric Exam: Normal PFSH All Active Problems (Updated 04/13/24 @ 11:36 by Eileen Kilgore CNM) Lactating mother (Acute) Term of male (Acute) Susceptible to varicella (non-immune), currently (Acute) Rubella non-immune status, antepartum (Acute) Chronic low back pain (Chronic) Medical History (Updated 04/13/24 @ 11:36 by Eileen Kilgore CNM) Family history of congenital septal defect pt's mother Family history of thyroid disease pt's father's sister No pertinent past medical history Surgical History No pertinent past surgical history Social History Smoking/Tobacco Use Status: Never Second Hand Exposure: No Smoking risk assessment performed?: Yes Alcohol Intake: current Drug use: Never Substance use type: does not use Household members: spouse Housing: house current occupation: Compensation Sexually active: Yes Current gender identity: female What is your relationship status?: Panel score (0-1 are the most socially isolated patients): 1 What type of physical activity do you participate in: regular exercise Duration: 30-45 minutes/day Frequency: 3-4 times per week Seatbelt use: always Helmet use: Yes Drive 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 Do you feel safe at home: Yes Do you feel safe in your relationship?: Yes Female Reproductive History Menstrual Age of Menarche: 14 Duration of menses: 3-5 days control method: none History History 1 Para 1 Hx # Term Pregnancies 1 Multiple births 0 Hx # Pregnancies 0 Ectopic pregnancies 0 AB induced 0 Hx Number of Living Children 0 AB spontaneous 0 DS: Data Vitals/I&O Vitals and I&O: Vital Signs Temperature 99.1 F 04/13/24 07:30 Temperature Source Oral 01/07/25 07:30 Pulse 83 04/13/24 07:30 Pulse Rhythm Regular 04/13/24 07:30 Respiratory Rate 16 04/13/24 07:30 Respiratory Depth Normal 04/11/24 03:29 Blood Pressure 114/75 04/13/24 07:30 Blood Pressure Mean 88 04/13/24 07:30 Pulse Oximetry 99 04/13/24 07:30 Oxygen Delivery Method Room Air 04/11/24 03:29 Oxygen Flow Rate 0 04/11/24 03:29 Pain Level 7 04/13/24 07:32 Comment Informed patient nurse will recheck BP after she is finished nursing her infant 04/12/24 01:15 Intake & Output 04/12/24 04/12/24 04/13/24 11:59 23:59 11:59 Output Total 600 / 600 Balance -600 / -600 Output: Urine 600 / 600
--- NOTE | 2024-04-13 12:01 | OBPPV_ITS ---
Date of service: 04/13/24 Time of Service: 12:01 Assessment and Plan Assessment and plan (1) Lactating mother: Status: Acute (2) Term of male : Status: Acute Assessment and plan: A: Stable for discharge home on PPD2 P: Discharge to home, routine teaching done. Plan interval Mirena IUD at 8wk PP Subjective Subjective Interval history: Reporting significant vaginal pain where laceration was. Taking ibuprofen and tylenol as scheduled, no opiate use during stay. Had BM today and flatus. Bleeding stable without clots. going well Patient's Mood: congruent [place] baby status: Doing well [place] feeding status: Exclusively breast feeding Exam Physical Exam Vital signs: Temp Pulse Resp BP Pulse Ox 99.1 F 83 16 114/75 99 04/13/24 07:30 04/13/24 07:30 04/13/24 07:30 04/13/24 07:30 04/13/24 07:30 Vital Signs Reviewed: Yes Constitutional Constitutional: no acute distress Comments: vaginal discomfort Breast Exam Bilateral: Breast Exam: Normal and Soft Nipple Exam: Normal and Uninjured Comments: + colostrum Abdominal Exam Abdomen: Diastasis (2 FB) Fundal Exam Fundus: Below Umbilicus and Firm Rectal Exam Rectal Exam: Not Done Exam Perineum: Edematous and Intact External: Present swelling (mild) Comments: Vagina: sutures intact, erythema, no evidence of hematoma Extremities Exam Extremity Exam: Normal Psychiatric Exam Psychiatric Exam: Normal Results Hemoglobin/Hematocrit: Hgb 13.6 g/dL (11.2-15.7) 04/11/24 03:35 Hct 40.6 % (36.0-46.0) 04/11/24 03:35 Abnormal Lab Findings: Abnormal Labs 04/11/24 03:35 WBC 17.48 H BUN 5 L Alkaline Phosphatase 121 H Albumin 3.0 L
--- NOTE | 2024-04-13 12:06 | W.PM.OBDISCH ---
Date of service: 04/13/24 Time of Service: 12:07 DS: Diagnosis Discharge Diagnosis (1) Lactating mother: Status: Acute (2) Term of male : Status: Acute Asessment and Plan: Discharge to home in stable condition. Routine PP follow up scheduled Discharge Plan Disposition Patient Disposition: Home Condition: Good Discharge Details Reason For Visit: Term labor Admit Date/Time: 04/11/24 03:20 Admit Provider: Soo Meek Attending Provider: Soo Meek Primary Care Provider: Poppy Wright Hospital Course Hospital Course: Patient with spontaneous labor, augmentation with Pitocin and fast delivery. Normal course. Home Meds and New Rx's Prescriptions: No Action PNV no.[id number] acid 28 mg iron- 800 mcg tablet 1 tab PO .every other day Zyrtec 10 mg capsule 10 mg PO DAILY erythromycin with ethanol 2 % gel 1 applic topical ONCE PRN Patient Comments: APPLY TOPICALLY TWICE DAILY TO AFFECTED AREA ON FACE lidocaine HCl 4 % gel with pump 1 applic topical BID-QID PRN (Reason: pain) Qty: 30 1RF Discharge Instructions Additional Instructions: Please keep your 2/6wk PP appointments with the Midwives. Call [facility] to schedule your 8wk IUD insertion. Stand Alone Forms: BC Instructions, BC Post Vaginal Deliver Activity:: Activity as Tolerated Equipment/Supplies:: No Equipment Needed Diet:: Normal Diet OB:DS Summary Summary Vaginal Delivery Method: Spontaneaous Laceration Description: Other (vaginal) Laceration Extension: First Degree complications OB DS: none Contraception Discussed Contraception Discussed: Yes Contraceptive Plan: IUD (Mirena at 8wk PP), Gender-Baby A: Male weight: 8 lb 5.512 oz Status at Discharge Functional status at discharge: independent ambulation Overall status at discharge: patient is progressing back to baseline Mental Status: mental status grossly normal Speech and Movement: speech and movement normal Mood: congruent mood Affect: normal affect Quality:SDOH Health Related Social Needs: No Data to Display Exam Physical Exam Vital signs: Temp Pulse Resp BP Pulse Ox 99.1 F 83 16 114/75 99 04/13/24 07:30 04/13/24 07:30 04/13/24 07:30 04/13/24 07:30 04/13/24 07:30 Constitutional Constitutional: no acute distress Breast Exam Bilateral: Breast Exam: Normal and Soft Comments: + colostrum Abdominal Exam Abdomen: Diastasis (2 FB) Fundal Exam Fundus: Below Umbilicus and Firm Rectal Exam Rectal Exam: Not Done Exam Perineum: Edematous and Intact External: Present swelling (mild) Extremities Exam Extremity Exam: Normal Psychiatric Exam Psychiatric Exam: Normal PFSH All Active Problems (Updated 04/13/24 @ 11:36 by Eileen Kilgore CNM) Lactating mother (Acute) Term of male (Acute) Susceptible to varicella (non-immune), currently (Acute) Rubella non-immune status, antepartum (Acute) Chronic low back pain (Chronic) Medical History (Updated 04/13/24 @ 11:36 by Eileen Kilgore CNM) Family history of congenital septal defect pt's mother Family history of thyroid disease pt's father's sister No pertinent past medical history Surgical History No pertinent past surgical history Social History Smoking/Tobacco Use Status: Never Second Hand Exposure: No Smoking risk assessment performed?: Yes Alcohol Intake: current Drug use: Never Substance use type: does not use Household members: spouse Housing: house current occupation: Compensation Sexually active: Yes Current gender identity: female What is your relationship status?: Panel score (0-1 are the most socially isolated patients): 1 What type of physical activity do you participate in: regular exercise Duration: 30-45 minutes/day Frequency: 3-4 times per week Seatbelt use: always Helmet use: Yes Drive intox or ride w/intox company tanker truck driver: No Do you feel safe at home: Yes Do you feel safe in your relationship?: Yes Female Reproductive History Menstrual Age of Menarche: 14 Duration of menses: 3-5 days control method: none History History 1 Para 1 Hx # Term Pregnancies 1 Multiple births 0 Hx # Pregnancies 0 Ectopic pregnancies 0 AB induced 0 Hx Number of Living Children 0 AB spontaneous 0 DS: Data Vitals/I&O Vitals and I&O: Vital Signs Temperature 99.1 F 04/13/24 07:30 Temperature Source Oral 04/13/24 07:30 Pulse 83 04/13/24 07:30 Pulse Rhythm Regular 04/13/24 07:30 Respiratory Rate 16 04/13/24 07:30 Respiratory Depth Normal 04/11/24 03:29 Blood Pressure 114/75 04/13/24 07:30 Blood Pressure Mean 88 04/13/24 07:30 Pulse Oximetry 99 04/13/24 07:30 Oxygen Delivery Method Room Air 04/11/24 03:29 Oxygen Flow Rate 0 04/11/24 03:29 Pain Level 7 04/13/24 07:32 Comment Informed patient nurse will recheck BP after she is finished nursing her 04/12/24 01:15
== END 2024-04-13 18:00 | disposition home or self-care (01) | DRG 806 ==
LOC: BCD 04:02 → OBS 04:02
PROVIDERS: Admitting Provider Advanced Practice Midwife; PCP Nurse Practitioner Adult Health; Visit Provider Advanced Practice Midwife
DX: O71.4 Obstetric high vaginal laceration alone; O48.0 Post-term pregnancy; Z37.0 Single live birth; O63.0 Prolonged first stage (of labor); Z3A.40 40 weeks gestation of pregnancy; O77.0 Labor and delivery complicated by meconium in amniotic fluid; O69.81X0 Labor and delivery complicated by cord around neck, without compression, not applicable or unspecified
CPT/HCPCS: 00123; 36415; 80053; 84112; 85027; 86850; 86900; 86901; 90707; 90716; 59025; 83615; 84550; J0665; J3010

== ENCOUNTER 2024-08-12 13:28 | Outpatient (REF) | payer OTHER, SELFPAY ==
--- NOTE | 2024-08-12 13:10 | PAPFT_PTH ---
PATIENT: Parisa Acosta LOC: [facility] U#:[id number] AGE/SX: 28/F ROOM: RE08/12/[address]: Eileen Kilgore : 1995 BED: DIS: 08/12/2024 SPEC #: [id number] RECD: 08/12/24 18:16 STATUS: DAVID REJt #: [id number] GRACE: 08/12/24 13:[address]: Eileen Kilgore DEPT: [facility] Cytology RECD BY: Dinah Espinal ENTERED: 08/12/24 18:17 SP TYPE: PAPFT JERILYN DR: Poppy Wright Tissues: 1 - CX/ENDOCX FOR PAP SMEARS Procedures: PAP THIN PREP/[facility] Screening Comments: [id number]
== END 2024-08-12 13:29 | disposition home or self-care (01) ==
LOC: LBN 13:28
PROVIDERS: PCP Nurse Practitioner Adult Health; Visit Provider Advanced Practice Midwife
DX: Z12.4 Encounter for screening for malignant neoplasm of cervix (principal)
CPT/HCPCS: 88142

== ENCOUNTER 2025-02-16 01:55 | Outpatient (CLI) | payer OTHER, SELFPAY ==
[2025-02-16 17:25] LABS: Abs Immature Grans 0.02 10^3/uL (0.0-0.06); HCT 39.6 % (36.0-46.0); HGB 13.0 g/dL (11.2-15.7); Immature Grans % 0.3 %; MCH 28.9 pg (27.0-33.0); MCHC 32.8 % (32.0-36.0); MCV 88 fL (80-95); MPV 8.9 fL (8.0-11.0); Platelet Count 311 10^3/uL (130-400); RBC 4.50 10^6/uL (3.93-5.22); RDW 13.2 % (11.7-14.6); RDW-SD 42.9 fL; WBC 7.62 10^3/uL (4.4-10.8)
[2025-02-16 18:10] LABS: Cannabinoids THC Negative (Negative)
[2025-02-16 19:02] LABS: TSH 2.50 uIU/mL (0.55-4.78); Vitamin D 25 Total 47 ng/mL (30-100)
[2025-02-17 20:58] LABS: HIV-1/2 Ag & Ab Screen Negative (Negative)
[2025-02-17 21:04] LABS: Hepatitis A Antibody IgM Negative (Negative); Hepatitis C Ab w Rflx HCV PCR Negative (Negative)
[2025-02-18 09:52] LABS: Rubella IgG Ab (UVM) Positive (See Note)
[2025-02-18 11:49] LABS: Chlamydia Result Negative (Negative); GC Result Negative (Negative)
[2025-02-18 17:42] LABS: Oxycodone Screen, U Negative ng/mL (Cutoff: 100)
[2025-02-21 16:59] LABS: Syphilis IgG w/Reflex Nonreactive (Nonreactive)
== END 2025-02-16 01:56 | disposition home or self-care (01) ==
LOC: LBO 01:55
PROVIDERS: PCP Nurse Practitioner Adult Health; Visit Provider Nurse Practitioner Adult Health
DX: Z31.7 Encounter for procreative management and counseling for gestational carrier (principal)
CPT/HCPCS: 36415; 80307; 82306; 86704; 86709; 86787; 86803; 86850; 86900; 86901; 87340; 87389; 87491; 87591; 83992; 84146; 84443; 85025; 86644; 86645; 86762; 86780